=== PATIENT | male | born 1995 | race African-American/Black ===

== ENCOUNTER 2019-05-11 11:16 | Emergency (ER) | payer OTHER, SELFPAY ==
[2019-05-11 11:24] VITALS: BP 189/91; PULSE 83; RESP 16; TEMP 36.9; O2SAT 100
--- NOTE | 2019-05-11 11:41 | ED.SKABFB ---
HPI - Skin/Abscess/Foreign Bdy General Chief complaint: Skin/Abscess/Foreign Body Stated complaint: Lump on neck Time Seen by Provider: 05/11/19 11:34 Source: patient Mode of arrival: ambulatory Limitations: no limitations History of Present Illness HPI narrative: Patient is otherwise healthy 24-year-old male here for evaluation of a lump on the back of the left side of his neck. Patient states it has been going on for the past couple days. He has never had anything like this in the past. He states that he feels like it is smaller today than what it was yesterday. He does not remember it draining any fluid. Has not tried anything for the symptoms prior to arrival Related Data Previous Rx's Medication Instructions Recorded cephalexin [Keflex] 500 mg PO QID 7 Days #28 cap 05/11/19 Allergies Allergy/AdvReac Type Severity Reaction Status Date / Time No Known Drug Allergies Allergy Verified 05/11/19 11:26 Review of Systems Constitutional Denies fever(s) and Denies headache(s) ENT Ears, Nose, Mouth, and Throat: Denies headache(s) Cardiovascular Denies chest pain and Denies dyspnea Respiratory Denies dyspnea Gastrointestinal Gastrointestinal: Denies abdominal pain Integumentary/Breasts Comments: Lump and pain back of his neck on the left side Neurologic Denies behavioral changes and Denies headache(s) Psychiatric Denies behavioral changes Hematologic/Lymphatic Reports easy bleeding and Reports easy bruising [facility] Medical History Patient denies medical problems (Acute) Social History Smoking Status: Former smoker Social History Smoking Status: Former smoker Exam Initial Vital Signs Initial Vital Signs: Vital Signs Temperature 98.4 F 05/11/19 11:24 Pulse Rate 83 05/11/19 11:24 Respiratory Rate 16 05/11/19 11:24 Blood Pressure 189/91 H 05/11/19 11:24 Pulse Oximetry 100 05/11/19 11:24 Const General: cooperative, comfortable, well developed and well groomed Orientation: alert, awake and oriented x3 Neck Other: Patient with a 8 cm area of induration on the posterior aspect of the left side of his neck. Has a 1 cm ?head ?on this area. No draining Resp Effort & Inspection: normal respiratory effort Skin Other: Induration on the posterior left side of the neck please see neck section for description Neuro General: alert, awake and oriented x3 Extrem General: normal to inspection and capillary refill normal Course Vital Signs - 8 hr 05/11/19 11:24 Temperature 98.4 F Pulse Rate 83 Respiratory Rate 16 Blood Pressure 189/91 H Pulse Oximetry 100 MDM - Skin/Abscess/Foreign Bdy MDM Narrative Medical decision making narrative: Bedside ultrasound did not show an underlying abscess. I do feel that some of the induration is reactive lymph nodes. No indication for incision and drainage here in the ER. Will send home on antibiotics. Patient was given return precautions and follow-up instructions. He expressed understanding and agreement plan. Discharge Plan Departure Patient Disposition: Home Clinical Impression: Cellulitis Qualifiers: Site of cellulitis: neck Qualified Code(s): L03.221 - Cellulitis of neck Discharge Date/Time: 05/11/19 11:52 Interventions: ED Discharge Assessment Last Done: 05/11/19 11:51 Instructions: DI for Cellulitis -- Adult Activity Restrictions/Additional Instructions: Take the antibiotics as directed. On Monday morning contact your medical department for follow-up. Return to the emergency department for any new or worsening symptoms Prescriptions: New cephalexin [Keflex] 500 mg capsule 500 mg PO QID 7 Days Qty: 28 RF: 0
== END 2019-05-11 11:52 | disposition home or self-care (01) ==
PROVIDERS: Emergency Provider Emergency Medicine
DX: L03.221 Cellulitis of neck (principal)
CPT/HCPCS: 99282

== ENCOUNTER 2020-11-13 00:15 | Emergency (ER) | payer SELFPAY ==
[2020-11-13 00:15] VITALS: BP 194/116; PULSE 89; RESP 17; TEMP 36.7; O2SAT 100; BMI 38.4
[2020-11-13 00:26] VITALS: PULSE 83; O2SAT 100
[2020-11-13 00:30] VITALS: PULSE 77; O2SAT 100
[2020-11-13 00:31] VITALS: BP 172/103; PULSE 78; O2SAT 100
--- NOTE | 2020-11-13 00:33 | DI.RAD.S_ITS ---
PROCEDURE: XR CHEST 1V INDICATIONS: Chest pressure TECHNIQUE: One view of the chest was acquired. COMPARISON: None. FINDINGS: Surgical changes and devices: None. Lungs and pleura: Lungs are clear. No pleural effusions or pneumothorax. Mediastinum: Mediastinal contours appear normal. Heart is enlarged. Bones and chest wall: No suspicious bony lesions. Overlying soft tissues appear unremarkable. IMPRESSION: No acute cardiopulmonary disease process. Dictated by: Cristy Rodriguez MD, PhD on 11/13/2020 at 9:21 Approved by: Cristy Rodriguez MD, PhD on 11/13/2020 at 9:45
--- NOTE | 2020-11-13 00:34 | ED_ITS ---
HPI - General Adult General Chief complaint: Hypertension Stated complaint: states high bp, headache doesnt feel well Time Seen by Provider: 11/13/20 00:16 Source: patient Mode of arrival: Ambulatory Limitations: no limitations History of Present Illness HPI narrative: Patient is a 25-year-old male. 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 He takes this for a short period of time but then stopped taking it on his own and has not taken it for several years. Does recently he started noticing that his blood pressure was elevated so he started taking the prescription that he received 2 years ago again. He comes the emergency department today because he has headache and generally does not feel very well and he took his blood pressure at home and it was elevated. He states he does recently bought a bone pressure cuff and off of his medication his blood pressure normally runs between 160 and 180 systolic. He also describes chest pressure. Related Data Previous Rx's Medication Instructions Recorded lisinopril-hydrochlorothiazide 1 tab PO DAILY #30 tab 11/13/20 Allergies Allergy/AdvReac Type Severity Reaction Status Date / Time No Known Drug Allergies Allergy Verified 05/11/19 11:26 Review of Systems Constitutional Constitutional: Denies fever(s) and Reports headache(s) ENT Ears, Nose, Mouth, and Throat: Reports headache(s) Cardiovascular Cardiovascular: Reports chest pain, Denies rapid heart rate and Denies dyspnea Respiratory Respiratory: Denies cough and Denies dyspnea Gastrointestinal Gastrointestinal: Denies abdominal pain, Denies nausea and Denies vomiting Musculoskeletal Musculoskeletal: Denies arthralgias and Denies myalgias Integumentary/Breasts Skin/Breast: Denies rash Neurologic Neurologic: Denies behavioral changes and Reports headache(s) Psychiatric Psychiatric: Denies behavioral changes Hematologic/Lymphatic On Anticoagulants: No Allergic/Immunologic Allergic/Immunologic: Denies urticaria Patient History Medical History Hypertension Social History Smoking Status: Former smoker Smoking Status: Former smoker alcohol intake frequency: 0-2 drinks per day Substance Use Type: does not use Exam Initial Vital Signs Initial Vital Signs: Vital Signs Temperature 98.0 F 11/13/20 00:15 Pulse Rate 89 11/13/20 00:15 Respiratory Rate 17 11/13/20 00:15 Blood Pressure 194/116 H 11/13/20 00:15 Pulse Oximetry 100 11/13/20 00:15 Const General: cooperative, healthy appearing, comfortable and well developed Limitations: mental status not altered HENMT Head: normal to inspection and normocephalic Resp Effort & Inspection: normal respiratory effort Auscultation: clear to auscultation bilaterally Cardio Rate: regular rate Rhythm: regular rhythm GI Inspection: non-distended Palpation: soft Skin Lesions: no lesions Rashes: no rashes Neuro General: patient alert, patient awake and patient oriented x3 Cognition: normal cognition Speech: speech normal Gait: normal gait Motor: muscle tone normal throughout Sensory Exam: no sensory deficits noted Extrem General: normal to inspection and capillary refill normal Psych Appearance: grossly normal and well kempt Scores GCS [place] coma scale eye opening: Spontaneous [place] coma scale verbal response: Orientated [place] coma scale motor response: [place] commands [place] coma scale total score: 15 HEART Score Heart Score history: Slightly Suspicious Heart Score EKG: Non-Specific repolarization disturbance Heart Score Age: < 45 years old Heart Score risk factors: 1-2 risk factors Heart Score troponin: < or = to normal limit Heart Score Total: 2 Course Orders Ordered: ED Orders 11/13/20 EKG-12 Lead Stat 11/13/20 00:30 Complete Blood Count AUTO DIFF Stat Comprehensive Metabolic Panel Stat Lipase Stat Troponin & CK Cardiac Panel Stat 11/13/20 00:33 XR chest 1V Stat Discontinued Medications Acetaminophen (Acetaminophen 325 Mg Tablet) 650 mg PO NOW ONE Stop: 11/13/20 00:41 Last Admin: 11/13/20 00:52 Dose: 650 mg Documented by: SHAYLA Vital Signs Vital signs: Vital Signs - 8 hr 11/13/20 00:15 11/13/20 00:26 11/13/20 00:30 Temperature 98.0 F Pulse Rate 89 83 77 Respiratory Rate 17 Blood Pressure 194/116 H Pulse Oximetry 100 100 100 11/13/20 00:31 11/13/20 01:00 11/13/20 01:30 Temperature Pulse Rate 78 77 74 Respiratory Rate 26 H 25 H Blood Pressure 172/103 H 169/105 H 165/99 H Pulse Oximetry 100 100 98 Medical Decision Making Lab Data Lab results reviewed: Yes I reviewed the patient's lab results. Result diagrams: 11/13/20 00:30 11/13/20 00:30 Labs: Lab Results 11/13/20 11/13/20 Range/Units 00:30 00:30 WBC 8.8 (4.5-11.0) X10^3/uL RBC 4.85 (4.5-5.9) X10^6/uL Hgb 14.5 (13.5-17.5) g/dL Hct 43.5 (41-53) % MCV 89.6 (80-100) fL MCH 29.9 (26-34) PG MCHC 33.4 (30-36) % RDW 13.7 (11.6-14.8) % Plt Count 197 (150-400) X10^3/uL Neut % (Auto) 69.0 (50-75) % Lymph % (Auto) 21.5 L (25-40) % [place] % (Auto) 8.1 (3-14) % Eos % (Auto) 0.5 L (2-4) % Baso % (Auto) 0.9 (0-2) % Neut # (Auto) 6000 (0524-0496) /uL Lymph # (Auto) 1900 (7232-8529) /uL [place] # (Auto) 700 (0-900) /uL Eos # (Auto) 0 (0-450) /uL Baso # (Auto) 100 (0-100) /uL Sodium 137 (137-145) mmol/L Potassium 3.8 (3.4-5.1) mmol/L Chloride 100 (98-107) mmol/L Carbon Dioxide 33 H (22-32) mmol/L BUN 16 (9-20) mg/dL Creatinine 0.95 (0.66-1.25) mg/dL Estimated GFR > 60.0 (>60) mL/min BUN/Creatinine Ratio 16.8 (6-22) Glucose 109 H (70-100) mg/dL Calcium 9.6 (8.4-10.2) mg/dL Total Bilirubin 0.5 (0.2-1.3) mg/dL AST 58 (17-59) IU/L ALT 89 H (<50) IU/L Alkaline Phosphatase 64 (38-126) U/L Total Creatine Kinase 383 H (55-170) U/L CK-MB (CK-2) 0.97 (<2.37) ng/mL CK-MB (CK-2) Rel Index 0.3 L (1.5-5.0) % Troponin I 0.016 (0.01-0.034) ng/mL Total Protein 8.1 (6.3-8.2) g/dL Albumin 4.5 (3.5-5.0) g/dL Globulin 3.6 (1.7-4.1) g/dL Albumin/Globulin Ratio 1.3 (1.0-2.8) Lipase 109 (23-300) U/L Imaging Data Chest x-ray: Radiologist's Impression: Low lung volumes Borderline cardiomegaly No evidence of heart ECG Data Attestation: I personally reviewed and interpreted this ECG as follows: Prior ECG tracings: not available for review Interpretation: Sinus rhythm Ventricular rate is 78 Early repolarization Normal axis MDM Narrative Medical decision making narrative: Patient has a history of hypertension and up until recently has not been taking any of his medications. He states that at baseline his systolic blood pressures feet 160-180 systolic this is off of medications. He does not know what his blood pressure is 1 taking medicines. He states that his headache completely resolved after Tylenol. His blood pressure improved with rest here in the ER without intervention. His troponin is negative. Low suspicion for ACS. Has a low risk heart score. I discussed all this with the patient. I will refill the medication that he was prescribed 2 years ago so that he has new medicine. It was sent to the pharmacy of his choice. Informed him that he need to take it daily and he needed to take his blood pressure at home and record the values and contact his primary doctor so they can discuss these values to see if he needs any changes. He was given return precautions and follow-up instructions. He expressed understanding and agreement. Discharge Plan Departure Patient Disposition: Home Clinical Impression: Hypertension Instructions: DI for High Blood Pressure Activity Restrictions/Additional Instructions: A prescription for blood pressure medicines was electronically transmitted to [facility]. To start taking this on a daily basis as directed. Is also important that you take your blood pressure at home like we discussed and record the values. When the office is open today contact your primary provider for a follow-up. Return to the emergency department for any new or worsening symptoms Prescriptions: New lisinopril-hydrochlorothiazide 20-12.5 mg tablet 1 tab PO DAILY Qty: 30 RF: 0
[2020-11-13 00:46] LABS: Add Manual Diff / Slide Review NO; Basophils Absolute Auto 100 /uL (0-100); Basophils Percent Auto 0.9 % (0-2); Eosinophils Absolute Auto 0 /uL (0-450); Eosinophils Percent Auto 0.5 % (2-4); Hematocrit 43.5 % (41-53); Hemoglobin 14.5 g/dL (13.5-17.5); Lymphocytes Absolute Auto 1900 /uL (1100-4500); Lymphocytes Percent Auto 21.5 % (25-40); Mean Corpuscular HGB Conc 33.4 % (30-36); Mean Corpuscular Hemoglobin 29.9 PG (26-34); Mean Corpuscular Volume 89.6 fL (80-100); Monocytes Absolute Auto 700 /uL (0-900); Monocytes Percent Auto 8.1 % (3-14); Neutrophils Absolute Auto 6000 /uL (1500-7000); Platelet Count 197 X10^3/uL (150-400); Red Blood Cell Count 4.85 X10^6/uL (4.5-5.9); Red Cell Distribution Width 13.7 % (11.6-14.8); White Blood Cell Count 8.8 X10^3/uL (4.5-11.0)
[2020-11-13] MEDS: ACETAMINOPHEN 325 MG TABLET 650 MG PO (00:52)
[2020-11-13 00:53] LABS: Alanine Aminotransferase 89 IU/L (<50); Albumin 4.5 g/dL (3.5-5.0); Albumin Globulin Ratio 1.3 (1.0-2.8); Alkaline Phosphatase 64 U/L (38-126); Aspartate Aminotransferase 58 IU/L (17-59); BUN Creatinine Ratio 16.8 (6-22); Bilirubin Total 0.5 mg/dL (0.2-1.3); Blood Urea Nitrogen 16 mg/dL (9-20); Calcium 9.6 mg/dL (8.4-10.2); Carbon Dioxide 33 mmol/L (22-32); Chloride 100 mmol/L (98-107); Creatine Kinase 383 U/L (55-170); Estimated Glomerular Filt Rate > 60.0 mL/min (>60); Globulin 3.6 g/dL (1.7-4.1); Glucose 109 mg/dL (70-100); HEMOLYSIS < 15 (0-50); Lipase 109 U/L (23-300); Potassium 3.8 mmol/L (3.4-5.1); Sodium 137 mmol/L (137-145); Total Protein 8.1 g/dL (6.3-8.2)
[2020-11-13 01:00] VITALS: BP 169/105; PULSE 77; RESP 26; O2SAT 100
[2020-11-13 01:05] LABS: Troponin I 0.016 ng/mL (0.01-0.034)
[2020-11-13 01:08] LABS: CKMB % Relative Index 0.3 % (1.5-5.0); Creatine Kinase MB 0.97 ng/mL (<2.37)
[2020-11-13 01:30] VITALS: BP 165/99; PULSE 74; RESP 25; O2SAT 98
== END 2020-11-13 01:47 | disposition home or self-care (01) ==
PROVIDERS: Emergency Provider Emergency Medicine
DX: I10 Essential (primary) hypertension (principal); R51.9 Headache, unspecified; R07.9 Chest pain, unspecified
CPT/HCPCS: 36415; 71045; 80053; 82550; 82553; 83690; 84484; 85025; 93005; 93010; 99283; 99284

== ENCOUNTER → 2021-12-20 12:23 | Outpatient (CLI) | payer BC, SELFPAY ==
[2021-12-20 13:24] LABS: Hematocrit 43.4 % (41-53); Hemoglobin 14.5 g/dL (13.5-17.5); Mean Corpuscular HGB Conc 33.5 % (30-36); Mean Corpuscular Hemoglobin 29.9 PG (26-34); Mean Corpuscular Volume 89.4 fL (80-100); Platelet Count 197 X10^3/uL (150-400); Red Blood Cell Count 4.85 X10^6/uL (4.5-5.9); Red Cell Distribution Width 13.5 % (11.6-14.8); White Blood Cell Count 6.3 X10^3/uL (4.5-11.0)
[2021-12-20 13:35] LABS: Alanine Aminotransferase 68 IU/L (<50); Albumin Globulin Ratio 1.4 (1.0-2.8); Alkaline Phosphatase 53 U/L (38-126); Aspartate Aminotransferase 60 IU/L (17-59); Bilirubin Total 0.6 mg/dL (0.2-1.3); Blood Urea Nitrogen 13 mg/dL (9-20); Calcium 9.7 mg/dL (8.4-10.2); Carbon Dioxide 28 mmol/L (22-32); Chloride 104 mmol/L (98-107); Cholesterol 227 mg/dL (140-199); Estimated Glomerular Filt Rate > 60.0 mL/min (>60); Globulin 3.5 g/dL (1.7-4.1); Glucose 101 mg/dL (70-100); HDL Cholesterol 46 mg/dL (40-60); HEMOLYSIS 17 (0-50); LDL Cholesterol Calculated 155 mg/dL (<100); Potassium 4.1 mmol/L (3.4-5.1); Sodium 141 mmol/L (137-145); Total Protein 8.5 g/dL (6.3-8.2); Triglycerides 131 mg/dL (35-150)
[2021-12-20 14:15] LABS: TSH w/ Reflex to FT4 1.47 uIU/mL (0.47-4.68)
[2021-12-20 14:51] LABS: Urine N gonorrhoeae NOT DETECTED
[2021-12-20 16:00] LABS: Urine Chlamydia NOT DETECTED
[2021-12-20 18:11] LABS: HIV 1 & 2 Ab/Ag 4th Gen Combo NEGATIVE (NEGATIVE); Hep C Virus Ab w/Reflex Quant NEGATIVE s/c (NEGATIVE)
== END ==
PROVIDERS: PCP Internal Medicine; Referring Provider Internal Medicine; Visit Provider Internal Medicine
DX: I10 Essential (primary) hypertension (principal); Z20.9 Contact with and (suspected) exposure to unspecified communicable disease
CPT/HCPCS: 36415; 80053; 80061; 84443; 85027; 86803; 87389; 87491; 87591

== ENCOUNTER → 2023-01-04 12:17 | Outpatient (CLI) | payer BC, SELFPAY ==
[2023-01-04 13:38] LABS: Hematocrit 43.4 % (41-53); Hemoglobin 14.6 g/dL (13.5-17.5); Mean Corpuscular HGB Conc 33.7 % (30-36); Mean Corpuscular Hemoglobin 29.8 PG (26-34); Mean Corpuscular Volume 88.5 fL (80-100); Platelet Count 172 X10^3/uL (150-400); Red Cell Distribution Width 13.6 % (11.6-14.8)
[2023-01-04 14:17] LABS: Alanine Aminotransferase 57 IU/L (<50); Albumin 4.2 g/dL (3.5-5.0); Albumin Globulin Ratio 1.3 (1.0-2.8); Alkaline Phosphatase 62 U/L (38-126); Aspartate Aminotransferase 39 IU/L (17-59); BUN Creatinine Ratio 15.6 (6-22); Bilirubin Total 0.6 mg/dL (0.2-1.3); Blood Urea Nitrogen 15 mg/dL (9-20); Calcium 9.3 mg/dL (8.4-10.2); Carbon Dioxide 30 mmol/L (22-32); Chloride 102 mmol/L (98-107); Cholesterol 218 mg/dL (140-199); Estimated Glomerular Filt Rate > 60 mL/min (>60); Globulin 3.2 g/dL (1.7-4.1); Glucose 97 mg/dL (70-100); HDL Cholesterol 54 mg/dL (40-60); HEMOLYSIS < 15 (0-50); LDL Cholesterol Calculated 143 mg/dL (<100); Potassium 4.4 mmol/L (3.4-5.1); Sodium 139 mmol/L (137-145); Total Protein 7.4 g/dL (6.3-8.2); Triglycerides 106 mg/dL (35-150)
[2023-01-04 14:31] LABS: Thyroid Stimulating Hormone 0.892 uIU/mL (0.47-4.68)
[2023-01-04 15:08] LABS: Urine N gonorrhoeae NOT DETECTED
[2023-01-04 15:14] LABS: Urine Chlamydia NOT DETECTED
[2023-01-05 05:05] LABS: HBsAg Screen Negative (Negative); Hepatitis A Antibody IgM Negative (Negative); Hepatitis B Core Antibody IgM Negative (Negative); Hepatitis C Antibody Non Reactive (Non Reactive)
[2023-01-05 18:52] LABS: HIV 1 & 2 Ab/Ag 4th Gen Combo NEGATIVE (NEGATIVE)
== END ==
PROVIDERS: PCP Internal Medicine; Referring Provider Internal Medicine; Visit Provider Internal Medicine
DX: I10 Essential (primary) hypertension (principal); Z20.9 Contact with and (suspected) exposure to unspecified communicable disease
CPT/HCPCS: 36415; 80053; 80061; 80074; 84443; 85027; 87389; 87491; 87591

== ENCOUNTER → 2024-01-09 14:53 | Outpatient (CLI) | payer BC, SELFPAY ==
[2024-01-09 16:21] LABS: HEMOLYSIS < 15 (0-50)
[2024-01-09 16:22] LABS: BUN Creatinine Ratio 14.6 (6-22); Blood Urea Nitrogen 14 mg/dL (9-20); Calcium 9.4 mg/dL (8.4-10.2); Carbon Dioxide 33 mmol/L (22-32); Chloride 101 mmol/L (98-107); Estimated Glomerular Filt Rate > 60 mL/min (>60); Glucose 91 mg/dL (70-100); Sodium 139 mmol/L (137-145)
== END ==
LOC: LAB 14:54
PROVIDERS: PCP Internal Medicine; Referring Provider Internal Medicine; Visit Provider Internal Medicine
DX: I10 Essential (primary) hypertension (principal)
CPT/HCPCS: 36415; 80048

== ENCOUNTER 2025-04-08 00:12 | Inpatient (IN) | payer BC, SELFPAY ==
[2025-04-08] VITALS (113 sets, daily range): BP systolic 155–214; BP diastolic 72–127; PULSE 74–128; RESP 8–39; TEMP 36.6–36.8; O2SAT 92–100; BMI 40.7
--- NOTE | 2025-04-08 00:20 | ED_ITS ---
HPI - Neuro Symptoms/Deficit General Chief Complaint: Neuro Symptoms/Deficit Stated Complaint: thinks he is having stroke symptoms Time Seen by Provider: 04/08/25 00:12 History of Present Illness HPI Narrative: 29y M hx of htn on amlodipine and lisinopril for which he has been noncompliant noticed 2 Sundays ago he started have left lower leg numbness tingling and weakness having to bear weight at times on the right leg. This past Monday he was playing football and afterwards he felt numb and weak in the left leg again. Today he noticed speech is in the same and it is feels slurred and he still having left leg numbness and weakness. Patient reports that he has not been compliant in taking his blood pressure medicines as previously prescribed. Patient denies fever chills headache dizziness blurred vision difficulty swallowing or hearing loss. Other than what is stated 14 point review of system is negative. Related Data Previous Rx's ?Medication ?Instructions ?Recorded amlodipine 10 mg tablet 10 mg PO DAILY #90 tabs 12/24 03/18 lisinopril 20 1 tab PO DAILY #90 tabs 12/24 03/18 mg-hydrochlorothiazide 12.5 mg tablet spironolactone 25 mg tablet 25 mg PO DAILY #90 tabs Allergies Allergy/AdvReac Type Severity Reaction Status Date / Time No Known Drug Allergies Allergy Verified 01/09/24 14:03 Review of Systems Review of Systems ROS Unobtainable: All systems reviewed & are unremarkable except as noted in HPI and below Patient History Medical History Tinnitus Plantar fasciitis, bilateral Hearing loss Foot pain Hypertension alcohol intake frequency: 0-2 drinks per day Exam Narrative Exam Narrative: GENERAL: [29] year old patient appears stated age. Well-developed patient, in mild distress. HEAD: Atraumatic. Normocephalic. EYES: Pupils equal round and reactive. Extraocular motions intact. No scleral icterus. No injection or drainage. ENT: Nose without bleeding, purulent drainage. Throat without erythema, tonsillar hypertrophy or exudate. Airway patent. NECK: Trachea midline. Non tender CARDIOVASCULAR: Regular rate and rhythm without murmurs, gallops, or rubs. RESPIRATORY: Clear to auscultation. Breath sounds equal bilaterally. No wheezes, rales, or rhonchi. GASTROINTESTINAL: Abdomen soft, non-tender, nondistended. EXTREMITIES: No edema or joint tenderness. BACK: Nontender without deformity or crepitance. No flank tenderness. NEURO: AOx3. GCS 15 nonfocal neuro exam. 5/5 upper bilateral. 5/5 right lower extremity 3/5 lower left extremity negative pronator drift, opposite heel yoiimb-vr-aoje test intact SKIN: No rash or erythema of visible areas Scores NIH Stroke Scale Level of Conciousness: Alert, keenly responsive Ask month/age: Answers both questions correctly. Open/close eyes, close hand: Performs both tasks correctly Best gaze horizontal: Normal Visual fine: No visual loss Facial palsy: Normal symetrical movement Left arm drift: No drift for full 10 sec Right arm drift: No drift for full 10 sec Left leg drift: Some effort against gravity, cannot maintain, drifts down to bed Right leg drift: No drift for full 5 sec Limb ataxia: Absent Sensory on face/arms/legs: Normal, no sensory loss Best language: No aphasia, normal Dysarthria: Mild to mod,some slurring Extinction or inattention: No abnormality Total NIH Stroke scale score: 3 MDM - Neuro Symptoms/Deficit Imaging Data CT scan - head: Radiologist's Impression: [place] [address] CT Scan Report Signed Patient: Grey Carlos MR#: [id number] : 1995 Acct:[id number] Age/Sex: 29 / M Date of Service: 04/08/25 Loc: ED Accession Number: [id number] Procedure: CT head/brain wo con Ordering Provider: Luke Canada D.O. PROCEDURE: CT HEAD/BRAIN WO CON INDICATIONS: slurring speach/ weakness left leg>18hrs TECHNIQUE: Noncontrast 4.5 mm thick angled axial sections acquired from the foramen magnum to the vertex, with coronal and sagittal reformats. For radiation dose reduction, the following was used: automated exposure control, adjustment of mA and/or kV according to patient size. COMPARISON: [facility], CT, CT ANGIO HEAD AND NECK, 04/08/2025, 1:13. FINDINGS: Image quality: Diagnostic. CSF spaces: Basal cisterns are patent. No extra-axial fluid collections. Ventricles are normal in size and shape. Brain: No midline shift. No intracranial mass effect or hemorrhage. [place]- white matter interface is normal. Low-attenuation focus is present the right nolan radiata. Skull and face: Calvarium and visualized facial bones are intact, without suspicious lesions. Sinuses: Visualized sinuses and mastoids are clear. IMPRESSION: Low-attenuation focus within the right nolan radiata suspicious for subacute ischemia. No superimposed hemorrhage. [address] [address] [address] Scan Report Signed Patient: Grey Carlos MR#: [id number] : 1995 Acct:[id number] Age/Sex: 29 / M Date of Service: 04/08/25 Loc: ED Accession Number: [id number] Procedure: CT angio head and neck Ordering Provider: Luke Canada D.O. PROCEDURE: CT ANGIO HEAD AND NECK INDICATIONS: slurring speach/ weakness left leg>18hrs TECHNIQUE: After the administration of intravenous contrast, 1 mm thick sections acquired from the aortic arch through the [place] of [place]. 3-dimensional cwcdudc-cfbiyhgvy-rtgymhmsok (MIP) and/or volume rendering reformats were acquired of the central intracranial vasculature and neck separately. For radiation dose reduction, the following was used: automated exposure control, adjustment of mA and/or kV according to patient size. COMPARISON: [facility], CT, CT HEAD/BRAIN WO CON, 04/08/2025, 1:13. FINDINGS: Image quality: Diagnostic. Cerebral CT Angiogram: Internal carotid arteries: No acute findings. Intracranial ICA are patent with no significant stenosis. No occlusion. No aneurysm. Anterior cerebral arteries: Unremarkable. No significant stenosis. No occlusion. No aneurysm. Middle cerebral arteries: Unremarkable. No significant stenosis. No occlusion. No aneurysm. Posterior cerebral arteries: Unremarkable. No significant stenosis. No occlusion. No aneurysm. Basilar artery: Unremarkable. No significant stenosis. No occlusion. No aneurysm. Vertebral arteries: Unremarkable as visualized. Vertebral. Dural venous sinuses: Unremarkable given phase of enhancement. Other: Arterial phase appearance of the brain parenchyma is unremarkable. Neck CT Angiogram: Internal carotid arteries: Unremarkable. No significant stenosis. No dissection or occlusion. Common carotid arteries: Unremarkable. No significant stenosis. No dissection or occlusion. External carotid arteries: Unremarkable. No occlusion. Vertebral arteries: Unremarkable. No significant stenosis. No dissection or occlusion. Aortic Arch and Mediastinum: Partially visualized aortic arch unremarkable without evidence of aneurysm. Origins of the great vessels unremarkable. Other: Arterial phase soft tissues of the neck and chest are unremarkable. IMPRESSION: No significant intracranial arterial abnormality is seen. No significant abnormality is seen within the arteries of the neck. Any quantitative measurements of stenosis were performed using NASCET criteria. ECG Data Interpretation: NSR HR 82 HI 146 QRS [address]-t wave change No previous EKG to compare MDM Narrative Medical decision making narrative: Vital signs, nurse triage note, medication list, previous ER visits, and all imaging studies reviewed. CT head showed low attenuation focus within right nolan radiata suspicious for subacute ischemia. NO Superimposed hemorrhage. Troponin 0.088. CK 779. Patient given hydralazine 10mg IV, aspirin 81mg PO x1. Case discussed with Dr. [facility] neurologist on-call who looked over the films and to start nicardipine drip to keep the systolic blood pressure in the 180s starting nicardine drip and to obtain a brain a brain MRI and echo and to check for diabetes and cholesterol in the morning and to trend the troponins. Case discussed with Dr. Drew who has graciously accepted the patient for inpatient admission. Discharge Plan Departure Patient Disposition: Admitted As Inpatient Clinical Impression: Acute CVA (cerebrovascular accident)
--- NOTE | 2025-04-08 00:52 | DI.CT.S_ITS ---
PROCEDURE: CT ANGIO HEAD AND NECK INDICATIONS: slurring speach/ weakness left leg>18hrs TECHNIQUE: After the administration of intravenous contrast, 1 mm thick sections acquired from the aortic arch through the [place] of [place]. 3-dimensional ixalzvg-hrmrxvhof-ttevaltzqy (MIP) and/or volume rendering reformats were acquired of the central intracranial vasculature and neck separately. For radiation dose reduction, the following was used: automated exposure control, adjustment of mA and/or kV according to patient size. COMPARISON: [facility], CT, CT HEAD/BRAIN WO [facility], 04/08/2025, 1:13. FINDINGS: Image quality: Diagnostic. Cerebral CT Angiogram: Internal carotid arteries: No acute findings. Intracranial ICA are patent with no significant stenosis. No occlusion. No aneurysm. Anterior cerebral arteries: Unremarkable. No significant stenosis. No occlusion. No aneurysm. Middle cerebral arteries: Unremarkable. No significant stenosis. No occlusion. No aneurysm. Posterior cerebral arteries: Unremarkable. No significant stenosis. No occlusion. No aneurysm. Basilar artery: Unremarkable. No significant stenosis. No occlusion. No aneurysm. Vertebral arteries: Unremarkable as visualized. Vertebral. Dural venous sinuses: Unremarkable given phase of enhancement. Other: Arterial phase appearance of the brain parenchyma is unremarkable. Neck CT Angiogram: Internal carotid arteries: Unremarkable. No significant stenosis. No dissection or occlusion. Common carotid arteries: Unremarkable. No significant stenosis. No dissection or occlusion. External carotid arteries: Unremarkable. No occlusion. Vertebral arteries: Unremarkable. No significant stenosis. No dissection or occlusion. Aortic Arch and Mediastinum: Partially visualized aortic arch unremarkable without evidence of aneurysm. Origins of the great vessels unremarkable. Other: Arterial phase soft tissues of the neck and chest are unremarkable. IMPRESSION: No significant intracranial arterial abnormality is seen. No significant abnormality is seen within the arteries of the neck. Any quantitative measurements of stenosis were performed using NASCET criteria. Dictated by: Jaci Yusuf M.D. on 04/08/2025 at 1:45 Approved by: Jaci Yusuf M.D. on 04/08/2025 at 1:46
--- NOTE | 2025-04-08 00:52 | DI.RAD.S_ITS ---
PROCEDURE: XR CHEST 1V INDICATIONS: Possible stroke TECHNIQUE: One view of the chest was acquired. COMPARISON: [facility], CR, XR CHEST 1V, 11/13/2020, 0:38. FINDINGS: Surgical changes and devices: None. Lungs and pleura: Lungs are clear. No pleural effusions or pneumothorax. Mediastinum: Mediastinal contours appear normal. Heart size is enlarged. Bones and chest wall: No suspicious bony lesions. Overlying soft tissues appear unremarkable. IMPRESSION: No acute pulmonary process. Dictated by: Jaci Yusuf M.D. on 04/08/2025 at 1:46 Approved by: Jaci Yusuf M.D. on 04/08/2025 at 1:47
--- NOTE | 2025-04-08 00:52 | EKG_ITS ---
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
--- NOTE | 2025-04-08 00:52 | DI.CT.S_ITS ---
PROCEDURE: CT HEAD/BRAIN WO CON INDICATIONS: slurring speach/ weakness left leg>18hrs TECHNIQUE: Noncontrast 4.5 mm thick angled axial sections acquired from the foramen magnum to the vertex, with coronal and sagittal reformats. For radiation dose reduction, the following was used: automated exposure control, adjustment of mA and/or kV according to patient size. COMPARISON: [facility], CT, CT ANGIO HEAD AND NECK, 04/08/2025, 1:13. FINDINGS: Image quality: Diagnostic. CSF spaces: Basal cisterns are patent. No extra-axial fluid collections. Ventricles are normal in size and shape. Brain: No midline shift. No intracranial mass effect or hemorrhage. Almonte- white matter interface is normal. Low-attenuation focus is present the right nolan radiata. Skull and face: Calvarium and visualized facial bones are intact, without suspicious lesions. Sinuses: Visualized sinuses and mastoids are clear. IMPRESSION: Low-attenuation focus within the right nolan radiata suspicious for subacute ischemia. No superimposed hemorrhage. Dictated by: Jaci Yusuf M.D. on 04/08/2025 at 1:43 Approved by: Jaci Yusuf M.D. on 04/08/2025 at 1:44
[2025-04-08 01:27] LABS: Add Manual Diff / Slide Review NO; Hematocrit 41.4 % (41-53); Hemoglobin 14.3 g/dL (13.5-17.5); Lymphocytes Absolute Auto 2200 /uL (1100-4500); Mean Corpuscular HGB Conc 34.4 % (30-36); Mean Corpuscular Hemoglobin 30.1 PG (26-34); Mean Corpuscular Volume 87.3 fL (80-100); Platelet Count 198 X10^3/uL (150-400)
[2025-04-08 01:47] LABS: INR 1.1 (0.9-1.3); Prothrombin Time 12.6 SECONDS (9.4-12.5)
[2025-04-08 01:49] LABS: Alanine Aminotransferase 54 IU/L (<50); Albumin 4.7 g/dL (3.5-5.0); Albumin Globulin Ratio 1.3 (1.0-2.8); Alkaline Phosphatase 62 U/L (38-126); Blood Urea Nitrogen 13 mg/dL (9-20); Calcium 9.5 mg/dL (8.4-10.2); Carbon Dioxide 26 mmol/L (22-32); Chloride 104 mmol/L (98-107); Creatine Kinase 779 U/L (55-170); Estimated Glomerular Filt Rate > 60 mL/min (>60); Globulin 3.7 g/dL (1.7-4.1); Glucose 107 mg/dL (70-99); HEMOLYSIS < 15 (0-50); PTT Partial Thromboplastin Tim 28 SECONDS (25.1-36.5); Potassium 3.3 mmol/L (3.4-5.1); Sodium 140 mmol/L (137-145); Total Protein 8.4 g/dL (6.3-8.2)
[2025-04-08 02:01] LABS: Troponin I 0.088 ng/mL (0.01-0.034)
[2025-04-08] MEDS: ASPIRIN EC 81 MG TABLET PO ×2 (02:06→10:00)
[2025-04-08] MEDS: hydrALAZINE 20 MG/ML VIAL 10 MG IV (02:06)
[2025-04-08] MEDS: POTASSIUM CHLORIDE 20 MEQ/15 ML UDC 40 MEQ PO (02:08)
[2025-04-08] MEDS: NICARDIPINE 25 MG in SODIUM CHLORIDE 0.9% 240 ML 50 MG IV ×2 (03:15→22:16)
--- NOTE | 2025-04-08 03:26 | DI.ECHO.S_ITS ---
[place] [facility] : : [address] : [address] : : [id number] : : Phone: [phone] Echocardiogram Report + + :Name: MIREYA SCHERER Study Date: 04/08/2025 Height: 69 in : :[facility] ReadingLocation: Weight: 276 lb : : Gender: Male BSA: 2.4 m2 : :: 1995 Age: 29 yrs BP: 178/83 mmHg: :Reason For Study: STROKE : :Ordering Physician: ANGELES, : :PEDRO PABLO Quijano MD Performed By: Ruth Ruth : :Referring: PEDRO PABLO REYNOSO MD : + + Interpretation Summary 1) Severely increased left ventricular thickness (concentric) with normal size, normal wall motion, and normal systolic function (EF 55-60%). 2) Normal right ventricular size and function. 3) No significant valvular abnormalities. 4) Injection of contrast documented no interatrial shunt. 5) Hypertension present during the study (BP 178/83mmHg). 6) No prior Echo available for comparison. Procedure: A two-dimensional transthoracic echocardiogram with color flow and Doppler was performed. The study quality was technically adequate. There is no prior echocardiogram noted for this patient. A saline contrast injection was performed to assess for cardiac shunting. The patient was in sinus rhythm with heart rates between 84-109 bpm during the exam. Left Ventricle: The left ventricle is normal in size. There is severe concentric left ventricular hypertrophy. The ejection fraction is estimated to be 55-60%. Left ventricular systolic function appears normal without focal wall motion abnormalities. Diastolic function could not be accurately assessed due to contradictory data. Right Ventricle: The right ventricle is normal size. The right ventricular systolic function is normal. Atria: The left atrial size is normal. Right atrial size is normal. There is no Doppler evidence for an interatrial shunt. Injection of contrast documented no interatrial shunt. Mitral Valve: The mitral valve leaflets appear to open well. There is no mitral regurgitation noted. Aortic Valve: The aortic valve is trileaflet. The aortic valve opens well. There is no aortic valve stenosis. There is trace aortic regurgitation. Tricuspid Valve: The tricuspid valve leaflets are thin and pliable. There is trace tricuspid regurgitation. Pulmonary artery pressures cannot be estimated because of the lack of a measurable TR jet velocity. Pulmonic Valve: The pulmonic valve is not well seen, but is grossly normal. There is no pulmonic valvular regurgitation. Great Vessels: The aortic root is normal size. The dimensions of the ascending aorta are normal. The IVC is of normal diameter and collapses greater than 50% with a sniff. This suggests a low right atrial pressure of 3 mm Hg. Pericardium/ Pleura There is a trivial pericardial effusion noted. There is no pleural effusion. MMode/2D Measurements & Calculations LVIDd: 5.1 cm Ao root diam: 3.8 cm LVIDs: 3.2 cm asc Aorta Diam: 3.2 cm FS: 37.6 % Ao Arch Diam (Prox Trans): 2.7 cm EPSS: 0.69 cm IVSd: 1.6 cm LVPWd: 1.8 cm LV cisneros. diameter/BSA (cm/m^2): 2.1 LV sys. diameter/BSA (cm/m^2): 1.3 LA A2 area: 22.1 cm2 RA long axis: 5.1 cm LA A4 area: 18.8 cm2 RA area: 18.3 cm2 LA length (vol): 5.5 cm RA vol: 55.8 ml LA vol: 64.2 ml RA : 23.6 ml/m2 LA vol index: 27.1 ml/m2 IVC diam: 1.2 cm RVD1 (basal): 2.7 cm TAPSE: 3.1 cm Doppler Measurements & Calculations Ao V2 max: 149.7 cm/sec LVOT Max Brendon: 128.0 cm/sec Ao V2 mean: 105.7 cm/sec LV V1 max P.6 mmHg Ao max P.0 mmHg LV V1 VTI: 19.2 cm Ao mean P.0 mmHg sev ratio: 0.87 Ao V2 VTI: 21.9 cm MV E max brendon: 79.8 cm/sec PA V2 max: 151.0 cm/sec MV A max brendon: 63.8 cm/sec PA V2 mean: 105.9 cm/sec MV E/A: 1.3 PA mean P.0 mmHg Med Peak E' Brendon: 6.3 cm/sec PA pr(Accel): 36.6 mmHg E/E' med: 12.6 Lat Peak E' Brendon: 4.6 cm/sec E/E' lat: 17.2 E/e' average: 14.9 MV dec time: 0.16 sec MV V2 mean: 67.0 cm/sec MV mean P.0 mmHg MV V2 VTI: 21.0 cm Reading Physician:09:04 AM
[2025-04-08 04:36] LABS: UR Morphine/Opiate cutoff 300 Negative (Negative); Urine MDMA Negative (Negative); Urine Methamphetamines Negative (Negative); Urine Tetrahydrocannabinol Positive (Negative)
[2025-04-08 04:37] LABS: Urine Tricyclic Antidepressant Negative (Negative)
[2025-04-08 06:05] LABS: Add Manual Diff / Slide Review NO; Hematocrit 41.9 % (41-53); Hemoglobin 14.3 g/dL (13.5-17.5); Lymphocytes Absolute Auto 2800 /uL (1100-4500); Mean Corpuscular HGB Conc 34.1 % (30-36); Mean Corpuscular Hemoglobin 29.8 PG (26-34); Mean Corpuscular Volume 87.3 fL (80-100); Platelet Count 194 X10^3/uL (150-400)
[2025-04-08 06:17] LABS: Blood Urea Nitrogen 10 mg/dL (9-20); Calcium 9.1 mg/dL (8.4-10.2); Carbon Dioxide 25 mmol/L (22-32); Chloride 103 mmol/L (98-107); Cholesterol 245 mg/dL (140-199); Estimated Glomerular Filt Rate > 60 mL/min (>60); Glucose 111 mg/dL (70-99); HDL Cholesterol 37 mg/dL (40-60); HEMOLYSIS < 15 (0-50); Potassium 3.1 mmol/L (3.4-5.1); Sodium 137 mmol/L (137-145); Triglycerides 135 mg/dL (35-150)
[2025-04-08 06:26] LABS: NT-proBNP (BNP-Adult 18+) 162 pg/mL (<125)
--- NOTE | 2025-04-08 06:38 | PM.HP.1 ---
History of Present Illness History of Present Illness Date Patient Seen: 04/08/25 Time Patient Seen: 06:38 Chief complaint: thinks he is having stroke symptoms Narrative: The pt is a 29 yo who presents to the ER last night with c/o left leg weakness & numbness that has been present for the past 2 weeks. He noticed it after playing football with some friends and has not improved, over the past week, he believes it has gotten worse. He is no longer able to put weight on the leg. He told the ER staff that he felt he was slurringhis words but I was not able to notice this. He is normally on hypertensive medications but has been very non-comliant with taking them, in fact it has been several weeks since he took them and has not rechecked his BP at home. There is no family hx of CVA or early onset MT. He does smoke tobacco + marijuana but no other recreational drug use. The has been on change in vision, no upper ext weakness, no confusion, PFSH Medical History Tinnitus Plantar fasciitis, bilateral Hearing loss Foot pain Hypertension Social History Smoking Status: Current every day smoker Meds Home Medications and Allergies Home Medications ?Medication ?Instructions ?Recorded ?Confirmed ?Type amlodipine 10 mg tablet 10 mg PO DAILY #90 tabs 01/09/24 01/09/24 Rx lisinopril 20 1 tab PO DAILY #90 tabs 01/09/24 01/09/24 Rx mg-hydrochlorothiazide 12.5 mg tablet spironolactone 25 mg tablet 25 mg PO DAILY #90 tabs 01/09/24 01/09/24 Rx Allergies Allergy/AdvReac Type Severity Reaction Status Date / Time No Known Drug Allergies Allergy Verified 01/09/24 14:03 Exam Vital Signs (past 8 hours): - 04/08/25 00:18 04/08/25 00:44 04/08/25 00:45 Temperature 97.8 F Pulse Rate 82 81 Respiratory Rate 16 35 H Blood Pressure 196/118 H Pulse Oximetry 98 98 99 Oxygen Delivery Method Room Air 04/08/25 00:45 04/08/25 01:00 04/08/25 01:00 Temperature Pulse Rate 74 Respiratory Rate 21 Blood Pressure 210/124 H 201/111 H Pulse Oximetry 97 Oxygen Delivery Method 04/08/25 01:34 04/08/25 01:47 04/08/25 01:47 Temperature Pulse Rate 77 80 Respiratory Rate 12 Blood Pressure 211/127 H Pulse Oximetry 92 99 Oxygen Delivery Method 04/08/25 02:06 04/08/25 02:33 04/08/25 03:50 Temperature Pulse Rate 85 Respiratory Rate 21 Blood Pressure 197/119 H 181/105 H Pulse Oximetry 99 Oxygen Delivery Method 04/08/25 03:56 04/08/25 03:56 04/08/25 04:00 Temperature Pulse Rate 102 H 104 H Respiratory Rate 27 H 29 H Blood Pressure 155/115 H Pulse Oximetry 98 99 Oxygen Delivery Method 04/08/25 04:01 04/08/25 04:01 04/08/25 04:05 Temperature Pulse Rate 103 H Respiratory Rate 27 H Blood Pressure 182/101 H 187/103 H Pulse Oximetry 99 Oxygen Delivery Method 04/08/25 04:05 04/08/25 04:10 04/08/25 04:10 Temperature Pulse Rate 109 H 104 H Respiratory Rate 32 H 20 Blood Pressure 189/96 H Pulse Oximetry 99 Oxygen Delivery Method 04/08/25 04:15 04/08/25 04:15 04/08/25 04:20 Temperature Pulse Rate 100 H Respiratory Rate 18 Blood Pressure 184/94 H 178/86 H Pulse Oximetry 98 Oxygen Delivery Method 04/08/25 04:20 04/08/25 04:25 04/08/25 04:25 Temperature Pulse Rate 95 H 96 H Respiratory Rate 31 H 25 H Blood Pressure 179/88 H Pulse Oximetry 99 Oxygen Delivery Method 04/08/25 04:30 04/08/25 04:30 04/08/25 04:35 Temperature Pulse Rate 92 H Respiratory Rate 30 H Blood Pressure 181/83 H 173/86 H Pulse Oximetry 99 Oxygen Delivery Method 04/08/25 04:35 04/08/25 04:40 04/08/25 04:40 Temperature Pulse Rate 88 90 Respiratory Rate 30 H 27 H Blood Pressure 182/87 H Pulse Oximetry 99 99 Oxygen Delivery Method 04/08/25 04:46 04/08/25 04:46 04/08/25 04:50 Temperature Pulse Rate 112 H Respiratory Rate 34 H Blood Pressure 182/120 H 186/104 H Pulse Oximetry 99 Oxygen Delivery Method 04/08/25 04:50 04/08/25 04:55 04/08/25 04:55 Temperature Pulse Rate 108 H 107 H Respiratory Rate 33 H 29 H Blood Pressure 194/94 H Pulse Oximetry 98 Oxygen Delivery Method 04/08/25 05:00 04/08/25 05:00 04/08/25 05:05 Temperature Pulse Rate 101 H Respiratory Rate 24 Blood Pressure 191/86 H 182/84 H Pulse Oximetry Oxygen Delivery Method 04/08/25 05:05 04/08/25 05:10 04/08/25 05:10 Temperature Pulse Rate 95 H 101 H Respiratory Rate 30 H 28 H Blood Pressure 206/93 H Pulse Oximetry Oxygen Delivery Method 04/08/25 05:15 04/08/25 05:15 04/08/25 05:20 Temperature Pulse Rate 97 H 109 H Respiratory Rate 20 21 Blood Pressure 196/90 H Pulse Oximetry Oxygen Delivery Method 04/08/25 05:20 04/08/25 05:25 04/08/25 05:25 Temperature Pulse Rate 106 H Respiratory Rate 24 Blood Pressure 200/91 H 203/94 H Pulse Oximetry Oxygen Delivery Method 04/08/25 05:30 04/08/25 05:30 04/08/25 05:35 Temperature Pulse Rate 89 Respiratory Rate 30 H Blood Pressure 177/77 H 176/77 H Pulse Oximetry Oxygen Delivery Method 04/08/25 05:35 04/08/25 05:40 04/08/25 05:40 Temperature Pulse Rate 84 84 Respiratory Rate 22 26 H Blood Pressure 171/74 H Pulse Oximetry Oxygen Delivery Method 04/08/25 05:45 04/08/25 05:45 04/08/25 05:50 Temperature Pulse Rate 86 Respiratory Rate 21 Blood Pressure 170/79 H 159/74 H Pulse Oximetry Oxygen Delivery Method 04/08/25 05:50 Temperature Pulse Rate 83 Respiratory Rate 27 H Blood Pressure Pulse Oximetry Oxygen Delivery Method Oxygen Delivery Method Room Air Const General: cooperative, healthy appearing and comfortable HENOH Head: normocephalic and atraumatic Resp Auscultation: clear to auscultation bilaterally Cardio Rate: regular rate Rhythm: regular rhythm GI Auscultation: normal bowel sounds Neuro General: patient alert, patient awake, patient oriented x3 and other Other: weakness in LLE, the leg was wrapped in several blankets Objective Labs 04/08/25 05:55 04/08/25 05:55 Labs: Laboratory Results - last 24 hr 04/08/25 04/08/25 04/08/25 01:15 04:08 05:55 WBC 8.7 9.1 RBC 4.75 4.80 Hgb 14.3 14.3 Hct 41.4 41.9 MCV 87.3 87.3 MCH 30.1 29.8 MCHC 34.4 34.1 RDW 13.7 13.8 Plt Count 198 194 Neut % (Auto) 66.2 59.7 Lymph % (Auto) 25.0 30.5 Marshall % (Auto) 8.1 8.9 Eos % (Auto) 0.2 L 0.3 L Baso % (Auto) 0.5 0.6 Neut # (Auto) 5700 5400 Lymph # (Auto) 2200 2800 Marshall # (Auto) 700 800 Eos # (Auto) 0 0 Baso # (Auto) 0 100 PT 12.6 H INR 1.1 APTT 28 Sodium 140 137 Potassium 3.3 L 3.1 L Chloride 104 103 Carbon Dioxide 26 25 BUN 13 10 Creatinine 0.92 0.83 Estimated GFR > 60 > 60 BUN/Creatinine Ratio 14.1 12.0 Glucose 107 H 111 H Calcium 9.5 9.1 Total Bilirubin 0.6 AST 49 ALT 54 H Alkaline Phosphatase 62 Total Creatine Kinase 779 H Troponin I 0.088 H NT-Pro-B Natriuret Pep 162 H Total Protein 8.4 H Albumin 4.7 Globulin 3.7 Albumin/Globulin Ratio 1.3 Triglycerides 135 Cholesterol 245 H LDL Cholesterol, Calc 181 H HDL Cholesterol 37 L U Opiates 300ng/mL cut Negative Ur Oxycodone Screen Negative Urine Methadone Screen Negative Ur Barbiturates Screen Negative U Tricyclic Antidepress Negative Ur Phencyclidine Scrn Negative Ur Amphetamines Screen Negative U Methamphetamines Scrn Negative Ur MDMA Scrn (Ecstasy) Negative U Benzodiazepines Scrn Negative Urine Cocaine Screen Negative U Marijuana (THC) Screen Positive H Urine pH TNP Urine Specific [place] TNP Ur Creatinine TNP Assessment & Plan Assessment & Plan narrative: I have discussed [facility] pt's presenting symptoms, labs and imaging with the ER provider and agree with the decision for admission. I have personally reviewed the labs of WBC of 6.7,K- 3.1,and reviewed the CT head showing the low attenuation in the right nolan. I, Dr. Yanira Drew in [place] have seen and examined the pt [facility] in [place] using all audio/ video technologies available with the consent of the pt and nursing assistance. 1. Acute CVA- the ER provider did discuss this pt with the tele-neurologistat the [facility] and they do not recommend transferring to a higher level of care. CT head and CTA of head and neck were performed, no obvious vascular causes, will have PT/OT evaluation the pt, MRI of the head pending, Echocardiogram ordered to see if a PFO exist in this young patient. will start the pt on ASA & plavix, BP control will be important, lipid profile pending. 2. HTN urgency- BP have been> 200-220 in theER, we have started the pt on Cardene drip,currently at 7.5 mg/hr, and BP still remains high, Lasix has been ordered, as well as hydralazine, teleneurologist wants to keep the sBP around 180 Time-Based Coding :: [TOTAL MINUTES] spent with patient and on the chart (including review of chart, obtaining history, exam, reviewing outside data, placing orders, documenting exam and treatment plan, and counseling patient) on [DATE].
[2025-04-08] MEDS: NICARDIPINE 25 MG in SODIUM CHLORIDE 0.9% 240 ML 75 MG IV ×2 (06:58→10:44)
[2025-04-08] MEDS: CLOPIDOGREL 75 MG TABLET 300 MG PO (07:38)
--- NOTE | 2025-04-08 09:35 | OT.IP.EVAL ---
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 Activities of Daily I Living and IADL's Social History Household Members none Living Arrangements Apartment/Condo Number of Floors ( Two Floors Floors) Number of Stairs To Flight of steps with B rails to BR Enter/Railing? 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 Activities of Daily I Living and IADL's Social History Household Members family,children,none Living Arrangements Apartment/Condo Number of Floors ( Two Floors Floors) Number of Stairs To 15 steps with bilateral rails Enter/Railing? 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 OT-IP Current Condition Start: 04/08/25 11:29 Freq: Status: Active Protocol: Document 04/08/25 11:30 CCC (Rec: 04/08/25 11:54 CCC Desktop) Occupational Therapy Current Condition Current Condition Evaluation Date 04/08/25 Treatment Diagnosis CVA Diagnosis Onset Date 04/08/25 M3 OT- IP Subjective and Pain Start: 04/08/25 11:29 Freq: Status: Active Protocol: Document 04/08/25 11:30 [facility] (Rec: 04/08/25 11:54 [facility] Desktop) OT- Subjective Occupational Therapy Visit Type Type Initial Evaluation Visit Start Time 08:56 Visit Stop Time 09:35 Occupational Therapy Visit Comments Patient Comments Pt agreed to get up. Only had standard walker in ED to use and other FWW too short. Patient/Caregiver To get better. Goals OT Pain Assessment Pain When Pain Assessed During Mobility Pain Present Pain Present Pain Reported Location neck Pain Behaviors Facial Grimacing M4 OT- IP ADL's Start: 04/08/25 11:29 Freq: Status: Active Protocol: Document 04/08/25 11:30 [facility] (Rec: 04/08/25 11:54 [facility] Desktop) OT PTI-Fezs-Xoacnig Comments OT Self-Feeding Pt states has not eaten and requested meal for pt and Comments also requested pt to have HOME MAKER. Pt complaining that his tongue feel a little swollen. OT ADL-Grooming Comments OT Grooming Comments Pt able to wash his face after set-up of wash cloth. OT ADL-Oral Care Comments Oral Care Comments Not performed. OT ADL-Dressing General Eval Lower Body Dressing Maximum Assistance Ability Comments OT Dressing Comments Due to decreased sitting balance pt unable to aracelis his socks and unable to lift his LLE for the left side. Pt needing CGA to KUSH for his balance. OT ADL-Toileting Comments OT Toileting Pt states earlier was able to transfer from the WC to Comments toilet via grabbing the bar and moving himself over. OT ADL-Bathing Comments OT Bathing Comments NOt performed. M5 OT- IP IADL's Start: 04/08/25 11:29 Freq: Status: Active Protocol: Document 04/08/25 11:30 [facility] (Rec: 04/08/25 11:54 [facility] Desktop) OT-Instrumental Activities of Daily Living Home Safety Awareness Awareness of Need Good Awareness for Assistance at Home Home Safety Comments Pt states did not sleep at all but still feels that he is not at his baseline for thinking at this time as feels a little foggy. Money Management Money Management Pt needing increased time with calculations. Comments Meal Preparation Meal Preparation Pt will need assist. Comments Employment Specialist/Program Manager Employment Specialist/Program Manager Pt will need assist. 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 Pt's score probably affected from lack of sleep and possible from the CVA as well. To continue to assess. Cognitive Comments Cognitive Assessment Pt able to follow commands for ADL and mobility needs. Comments Pt states feels a bit foggy and that he is not thinking as well as he usually does. OT- Vision and Hearing OT- Hearing Assessment OT- Hearing WFL Assessment OT- Vision Assessment Visual Acuity WFL Occular Pursuits WFL Visual Convergence WFL Visual Gates WFL Visual Spacial Left Neglect Vision Assessment Pt having difficulty to have the control to keep his Comments eyes close during assessments. Possible left neglect for LUE and needing cues to keep take of his left UE. M7 OT- IP Mobility and Balance Start: 04/08/25 11:29 Freq: Status: Active Protocol: Document 04/08/25 11:30 [facility] (Rec: 04/08/25 11:54 [facility] Desktop) OT- Bed Mobility Assessment Supine to Sit Supine to Sit Assist Minimal Assistance OT-Transfer Assessment Sit to and From Stand Sit to and from Minimal Assistance,2 Person Assistance Stand Comments Mobility Comments KUSH x2 to stand to the standard walker and unable to take any steps at this time. Pt having to sit back down as feeling sweaty. Pt able to scoot to the head the bed with MODA x1 , assist to help move and support his LLE. MAX AX 1 to get back into bed. OT- Balance Assessment Sitting Balance and Reactions Static Sitting Fair Balance Ability Dynamic Sitting Poor Balance Ability Standing Balance and Reactions Static Standing Poor Balance Ability Dynamic Standing Poor Balance Ability Comments Other Balance Tests/ Pt needing cue to sit to midline and CGA as times. Pt Deviations/Treatment leaning to the left and not aware. Pt HR increased from : 104 to 132 with minimal activity. M8 OT- IP Objective Assessments Start: 04/08/25 11:29 Freq: Status: Active Protocol: Document 04/08/25 11:30 [facility] (Rec: 04/08/25 11:54 [facility] Desktop) OT Gross Range of Motion Upper Extremity Range of Motion Assessment Left Impaired OT Strength Upper Extremity Strength Assessment Left Impaired Shoulder 3-/5 Elbow 4- Forearm 4- Wrist 4- Hand 4- Hand Resource Room Special Education Teacher Strength Hand Dominance Right OT- Coordination Assessment Upper Extremity Finger to Nose Test Left UE Impaired Comments Coordination Increased time with left hand. Pt states having Comments difficulty with FMS with left hand now. OT Sensation Assessment Comments Summary Comments Decreased proprioception in left hand. M9 OT- IP Assessment and Plan Start: 04/08/25 11:29 Freq: Status: Active Protocol: Document 04/08/25 11:30 [facility] (Rec: 04/08/25 11:54 [facility] Desktop) OT Summary Assessment and Plan Potential Rehabilitation Excellent Potential Analytic Complexity Moderate at Evaluation Summary OT Impairments Pain,Range of Motion,Strength,Balance,Coordination, Sensation,Functional Cognition,Functional Mobility,Self -Feeding,Grooming,Dressing,Toileting,Bathing,Toilet Transfers Progress Towards Slow Progress due to Medical Issues Goals Assessment Summary Pt MOD complexity and main barriers are steps, decreased functional use of LLE> LUE, not at his baseline for cognitive needs, decreased awareness of midline and balance at this time. Pt will benefit from acute rehab when medically stable. Pt would benefit from HOME MAKER eval. Goals Self-Feeding Goal Independent Grooming Goal Independent Dressing Goal Independent Toileting Goal Independent Bathing Goal Independent Toilet Transfer Goal Independent Shower Transfer Goal Independent Days to Meet Goals 25 Frequency of Treatment Frequency Of Once a Day Treatment Treatment Plan OT Treatment Plan ADL Training,Functional Cognition Training,Functional Mobility,Neuromuscular Re-education,Therapeutic Exercises,Patient/Family Education,Discharge Planning Other Treatment Transfer with FWW to [facility] with MODA X2. Recommendations and Next Treatment Focus Discharge Recommendations OT Discharge Acute Rehab Recommendations Transportation Needs Private Vehicle,Wheelchair/Cabulance at Discharge
[2025-04-08] MEDS: ENOXAPARIN 40 MG/0.4 ML SYRINGE SUBCUT ×2 (10:00→20:50)
--- NOTE | 2025-04-08 10:37 | PT.IIE ---
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 Activities of Daily I Living and IADL's Social History Household Members none Living Arrangements Apartment/Condo Number of Floors ( Two Floors Floors) Number of Stairs To Flight of steps with B rails to BR Enter/Railing? 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 M2 PT-IP Current Condition Start: 04/08/25 10:17 Freq: NEEDED Status: Active Protocol: Document 04/08/25 08:56 MB (Rec: 04/08/25 10:36 MB Desktop) Physical Therapy Current Condition Current Condition Evaluation Date 04/08/25 Treatment Diagnosis R nolan radiata subacute ischemia, LLE weakness M3 PT-IP Subjective Start: 04/08/25 10:17 Freq: NEEDED Status: Active Protocol: Document 04/08/25 08:56 MB (Rec: 04/08/25 10:36 MB Desktop) Subjective Physical Therapy Visit Type Type Initial Evaluation Visit Start Time 08:56 Visit Stop Time 09:00 Number of FACILITY PRACTICE SPECIALIST Visits 0 Physical Therapy Visit Comments Patient Comments Pt is agreeable to PT Therapy Pain Assessment Pain When Pain Assessed At Rest Pain Present Pain Present Pain Reported Location Back Scale Used Not rated M4 PT-IP Mobility and Gait Start: 04/08/25 10:17 Freq: NEEDED Status: Active Protocol: Document 04/08/25 08:56 MB (Rec: 04/08/25 10:36 MB Desktop) PT-Bed Mobility Assessment Rolling Level of Assist Minimal Assistance Supine to Sit Supine to Sit Minimal Assistance,1 Person Assistance,Bedrails Sit to Supine Sit to Supine Maximum Assistance,1 Person Assistance,Bedrails Scooting Scooting to Edge of Minimal Assistance Bed Scooting Up and Down Moderate Assistance in Bed PT-Transfer Assessment Sit to and From Stand Sit to and from Minimal Assistance,2 Person Assistance,Use of Upper Stand Extremities Equipment Transfer Assistive Gait Belt,Standard Walker Device Orthotic/Prosthetic No Devices or Brace: Transfers Transfer Destination Bed Transfer Technique Left side scoot with mod A for L leg up to HOB Transfer Ability Level of Assist Moderate Assistance,1 Person Assistance,Use of Upper Extremities Comments Mobility Comments Pt cannot move left leg at all when asked and he does have delayed processing. Strong clonus with forced passive DF left foot. Mild extensor tone in left knee and ankle DF tone and this changes with WB through foot sitting EOB and pt cannot fully extend through left knee or touch floor with left heel Gait Assessment Comments Gait Comments Unable to step this morning, even with +2 min A and assistance trying to move left leg, SW in room and used to stand today PT-Balance Assessment Sitting Balance and Reactions Static Sitting Normal Balance Ability Dynamic Sitting Fair Balance Ability Standing Balance and Reactions Static Standing Poor Balance Ability Dynamic Standing Poor Balance Ability Device Used SW and assistance M5 PT-IP Objective Assessments Start: 04/08/25 10:17 Freq: NEEDED Status: Active Protocol: Document 04/08/25 08:56 MB (Rec: 04/08/25 10:36 MB Desktop) Orientation Orientation/Cognition Level of Alertness Alert Orientation Name,Age,Birthday,Place,Situation Language Function No Deficits Noted Ability Safety Awareness Decreased Safety Awareness Memory Description No Deficits Noted Gross Range of Motion Upper Extremity ROM Impairments Defer to OT, pt does seem sluggish with motor awareness of LUE and use with moving hand on and off walker and for bed mobility Lower Extremity ROM Assessment Left Impaired Impairments See comments above, testing is challenging to rate today given tone presentation and no active movement with tone Strength Lower Extremity Strength Assessment Left Impaired Comments Strength Comments LLE ankle and knee without AROM and resistance to attempted PROM left knee flexion today with buckle with standing WB Coordination Assessment Gross Coordination Gross Coordination Impaired Sensation Assessment Sensation Gross Sensation WNL Comments Sensation Comments Pt does have delayed processing with sensory testing Muscle Tone Muscle Tone WNL No Comments Muscle Tone Comments PF tone left ankle and extensor tone left knee today, strong clonus to passive DF left ankle today M6 PT-IP Treatment Start: 04/08/25 10:17 Freq: NEEDED Status: Active Protocol: Document 04/08/25 08:56 MB (Rec: 04/08/25 10:36 MB Desktop) Physical Therapy Treatment Education Education Provided Precautions,Safety Other Treatments Other Treatment Pt's BP is high at 186/86 during mobility and his HR Performed increases to 132 BPM with minimal mobility today; ed pt on recommendations and PT course in acute setting, findings today M7 PT-IP Assessment and Plan Start: 04/08/25 10:17 Freq: NEEDED Status: Active Protocol: Document 04/08/25 08:56 MB (Rec: 04/08/25 10:36 MB Desktop) PT Summary Assessment and Plan Potential Rehabilitation Excellent Potential Status of Condition Evolving at Evaluation Summary Impairments Pain,ROM,Strength,Balance,Coordination,Tone,Cognition, Bed Mobility,Transfers,Gait,Activity Tolerance Assessment Summary Pt is a 29 y/o male adm with LLE weakness and found to have right nolan radiata subacute ischemia. He presents with LLE weakness and tone and strong clonus left ankle to rapid passive DF. 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 He lives alone and has a flight of steps in his condo/townhouse. Pt requires assistance for bed mobility, STS and lateral scooting transfers today and standing. He is unable to take a step today. Recommend acute rehab at d/c. Goals Bed Mobility Goal Independent Transfer Goal Independent,Cane,Front Wheeled Walker Gait Goal Independent,Cane,Front Wheel Walker Gait Distance 75 Other Goals Pt will perform WNLs on standardized balance test to decrease fall risk. Pt will ascend and descend flight of steps with rail and LRAD and mod I to allow safe home entrance. Days to Meet Goals 5 Frequency of Treatment Frequency Of Once a Day Treatment Treatment Plan Physical Therapy Bed Mobility Training,Transfer Training,Gait Training, Treatment Plan Therapeutic Exercise,Balance Retraining,Discharge Planning,Hot or Cold Pack,Neuromuscular Re-ed, Coordination Retraining,Manual Therapy Precautions Other Precautions Fall risk, left LE profoundly weak with changing tone Recommendations To Nursing Amount of Assist Mechanical Lift Needed Discharge Recommendations PT Discharge Acute Rehab Recommendations Transportation Needs Wheelchair/Cabulance at Discharge - PT assist x1-2
[2025-04-08] MEDS: POTASSIUM CHLORIDE 20 MEQ TAB 40 MEQ PO ×2 (12:37→18:12)
[2025-04-08] MEDS: FUROSEMIDE 40 MG/4 ML VIAL IV ×2 (12:37→23:16)
--- NOTE | 2025-04-08 13:39 | DI.CT.S_ITS ---
PROCEDURE: CT ANGIO ABDOMEN PELVIS INDICATIONS: renal artery stenosis TECHNIQUE: After the administration of intravenous contrast, 2.5 mm sections acquired from the diaphragm to the iliac crests. 10 mm maximum intensity projection (MIP) coronal and sagittal reformats were then performed. For radiation dose reduction, the following was used: automated exposure control. COMPARISON: None. FINDINGS: Image quality: Diagnostic. Abdominal aorta: No aortic aneurysm or evidence of acute aortic syndrome. Mesenteric arteries: Patent without hemodynamically significant stenosis. Renal arteries: There is a single right renal artery as well as 2 left renal arteries, with an accessory artery arising below the left main renal artery. No plaque or stenosis seen. Lower chest: Unremarkable. ABDOMEN: Liver: No solid mass. Gallbladder: No radiopaque gallstones or wall thickening. Biliary ducts: No biliary dilation. Pancreas: No ductal dilation. Spleen: Size is within normal limits. Adrenal Glands: No adrenal nodules. Kidneys and Ureters: No hydronephrosis. No solid mass. No complex renal cystic lesion which requires follow up. Stomach and Bowel: Normal colonic caliber, without significant wall thickening. Peritoneum: No abnormal intraperitoneal fluid. No free air. Ventral Wall: No hernia. Abdominal Nodes: No retroperitoneal or mesenteric adenopathy by size criteria. Vessels: Aorta, as above. Normal IVC. PELVIS: Pelvic Organs: Unremarkable. Bladder: Unremarkable. Pelvic Nodes: No enlarged lymph nodes. Miscellaneous: No inguinal hernias are seen. Bones: No aggressive osseous abnormality. IMPRESSION: No signs of renal artery stenosis. No mass seen. Dictated by: Servando Castellanos M.D. on 04/08/2025 at 16:37 Approved by: Servando Castellanos M.D. on 04/08/2025 at 16:44
[2025-04-08] MEDS: NICARDIPINE 25 MG in SODIUM CHLORIDE 0.9% 240 ML 100 MG IV (14:04)
[2025-04-08] MEDS: NITROGLYCERIN OINT 1 INCH/GM OINT...G. 0.5 INCH TOP (14:15)
--- NOTE | 2025-04-08 14:42 | PC.NURSE ---
Addendum entered by Kayy Palomino R.N. 04/08/25 18:29: Pt off nicardipine, see emar. BP staying within goal range with nitro paste in place to right upper chest. Original Note: Admit Note Patient arrived at 1110 from ER via stretcher, transferred self across to bed with assist. Unable to move LLE during NIH assessment, weak LUE, and slight left facial droop with a NIH of 7. Pt is alert and oriented x4. SpO2 upper 90s on RA. ST in the 100-110s . Nicardipine gtt 7.5 mg/hr. Goal BP to be 170s-180s/90s-100s, titrating. Nitro paste applied per MD order. Order received to remove paste if SBP less than 165. Pt was able to 2 person assist transfer to BSC, able to slightly move LLE to assist in transfer with FWW. Oriented to room and to call light/bed/tv controls. Call light within reach. Own CPAP, cell phone, and housing assistant at bedside along with clothing. Bed alarm on for safety.
--- NOTE | 2025-04-08 14:50 | ST.IPSLE ---
Visit Care Team Role Provider Type Edgar Mitchell MD Primary Care Provider Physician Specialty: Internal Medicine Address: [address] [place] [address], [facility] Email: [email or web address] Luke Canada DO Emergency Provider Physician Referring Provider Specialty: Emergency Medicine Address: [address] [place] [address], [facility] Phone: Fax: Email: [email or web address] Kishore Drew MD Admit Provider Physician Attending Provider Specialty: Internal Medicine Address: [address] [place] [address] Fax: Email: [email or web address] Diagnoses Cerebral infarction, unspecified (04/08/25) Past Medical History (Last Reviewed 01/09/24 @ 12:51 by Edgar Mitchell MD) Foot pain (Medical) Hearing loss (Medical) Hypertension (Medical) Plantar fasciitis, bilateral (Medical) Tinnitus (Medical) Speech-Language Pathology Speech/Language Eval [employer] Adult Cognitive Linguistic Eval Start: 04/08/25 14:30 Freq: Status: Active Protocol: Document 04/08/25 14:30 MM (Rec: 04/08/25 14:50 MM Desktop) Adult Cognitive Linguistic Evaluation Session Time Visit Start Time 14:10 Visit Stop Time 14:25 Total Visit Minutes 15 Visit Information Visit Number initial evaluation Referral Referring Provider Kishore Drew MD Reason for Referral ST evaluation in the setting of stroke Setting Assessment Location Acute Care Visit Type Note Type Initial evaluation Patient Information Identification Type Name Patient History Per H&P 04/08/2025: The pt is a 29 yo who presents to the ER last night with c/o left leg weakness & numbness that has been present for the past 2 weeks. He noticed it after playing football with some friends and has not improved, over the past week, he believes it has gotten worse. He is no longer able to put weight on the leg. He told the ER staff that he felt he was slurring his words but I was not able to notice this. He is normally on hypertensive medications but has been very non-compliant with taking them, in fact it has been several weeks since he took them and has not rechecked his BP at home. There is no family hx of CVA or early onset ND. He does smoke tobacco + marijuana but no other recreational drug use. The has been on change in vision, no upper ext weakness, no confusion. Per chart review, pt had an NIH stroke scale of 3 in ED . Per Imaging Impressions: CT Head 04/08/2025: Low-attenuation focus within the right nolan radiata suspicious for subacute ischemia. No superimposed hemorrhage. CT Head and Neck 04/08/2025: No significant intracranial arterial abnormality is seen. No significant abnormality is seen within the arteries of the neck. CXR 04/08/2025: No acute pulmonary process. WBC WNL at this time. 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 RN cleared ST to work with pt, pt agreeable to participate in evaluation. Pt denied hx or c/o dysphagia including coughing/choking or globus sensation with PO intake, pt reported tolerating current/baseline diet. Pt reported his speech sounds slurred compared to baseline speech, family/friend at bedside endorsed this. The Mini-Mental State Examination (MMSE) as well as information measures were utilized to assess the pt's speech, language, and cognitive linguistic skills at the bedside. Pt reported working and being independent with ADLs at baseline and verbalized concern for not being able to walk again. Informal Assessment Receptive Language Yes Normal Expressive Language Yes Normal Speech Normal No: mild dysarthria Speech Impairment(s) Imprecise articulation Cognition Normal Yes Formal Assessment Administration Complete Results The pt scored 28/30 on the Mini-Mental State Examination (MMSE), indicating cognitive-linguistic skills WFL. Pt demonstrated adequate orientation, memory recall, attention, and language abilities. There were no obvious signs of severe cognitive-linguistic deficits. Mild dysarthria noted during conversational speech, consistent with pt report. Pt's speech was 100% intelligible , however, exhibited slight imprecise articulation. Informally observed physical weakness (L>R) as pt utilized upper extremities during ST evaluation. Findings/Results Findings Cognitive-linguistic skills WFL. Mild dysarthria. ST services are not indicated at the current acute care level. 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 Prognosis Prognosis Good Plan of Care Speech-Language No Treatment Patient/Caregiver Described results of evaluation,Patient expressed Education understanding of evaluation,Family/caregivers expressed understanding of evaluation Discharge Inpatient rehab facility Recommendations
--- NOTE | 2025-04-08 15:13 | PC.NURSE ---
Pt transferred to CT by planning technician and CYNTHIA Carbajal. Bed low, side rails raised. Pt on tele via transport monitor. Cardene infusing at 7.5mg/hr. See MAR for protocol. See flowsheet for VS.
--- NOTE | 2025-04-08 18:17 | PM.HP.1 ---
History of Present Illness History of Present Illness Date Patient Seen: 04/08/25 Chief complaint: thinks he is having stroke symptoms Narrative: Chief complaint: Left leg paralysis secondary to right nolan radiata stroke History of present illness: The pt is a 29 yo who presents to the ER last night with c/o left leg weakness & numbness that has been present for the past 2 weeks. He noticed it after playing football with some friends and has not improved, over the past week, he believes it has gotten worse. He is no longer able to put weight on the leg. He told the ER staff that he felt he was slurring his words but I was not able to notice this. He is normally on hypertensive medications but has been very non-compliant with taking them, in fact it has been several weeks since he took them and has not rechecked his BP at home. There is no family hx of CVA or early onset [place]. He does smoke tobacco + marijuana but no other recreational drug use. The has been on change in vision, no upper ext weakness, no confusion, Findings in the emergency room significant for subacute stroke in the right nolan radiata on CT CT angiography is negative for significant cerebrovascular stenosis Review of systems: No unusual weight loss weight gain generalized weakness No chest pain palpitations shortness for breath wheezing No abdominal pain nausea vomiting diarrhea constipation No urinary symptoms Physical exam: Mature large frame male alert and oriented the time of my examination HEENT subtle left facial droop otherwise unremarkable Neck no JVD no carotid bruit Heart with a 3/6 holosystolic murmur at the left sternal border very hyperdynamic Lungs clear from apices to bases Abdomen nontender no bruits Extremities no edema Neurologic exam: Cranial nerves intact except slight facial asymmetry with smiling Slight weakness relative 4 or 5 left upper extremity extension and flexion at elbow slight weakness abduction and adduction at shoulder relative to right Left lower extremity 2/5 strength leg raise flexes but can not lift against gravity knee flexion-extension flexes but can not bend slight movement of toes and ankle Normal reflexes right lower extremity reflexes absent left lower extremity Alert and oriented Objective findings: Echocardiogram: 1) Severely increased left ventricular thickness (concentric) with normal size, normal wall motion, and normal systolic function (EF 55-60%). 2) Normal right ventricular size and function. 3) No significant valvular abnormalities. 4) Injection of contrast documented no interatrial shunt. 5) Hypertension present during the study (BP 178/83mmHg). 6) No prior Echo available for comparison. 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 with progressive weakness and near paralysis left lower extremity and very subtle involvement of left facial and left upper extremity Permissive hypertension on Cardene drip for afterload reduction and nitroglycerin paste for preload reduction and reducing end-diastolic pressure of the left ventricle Patient loaded with clopidogrel 300 mg and on dual antiplatelet therapy High-intensity statin Unable to get MRI at this facility due to patient body habitus unable to fit through aperture of the MRI scanner No signs of cerebrovascular stenosis or thrombus Uncontrolled hypertension with hypertensive cardiomyopathy Concentric severe thickness of the ventricular wall is quite impressive Preload nitrate we will probably be necessary for getting blood pressure to goal due to LVEDP elevation in addition to vaso dilator Permissive hypertension goal systolic pressure 170-180 for the next 24 hours DVT prophylaxis: Enoxaparin Code status: Full code blue 75 minutes were involved management evaluation of this patient [facility] Medical History Tinnitus Plantar fasciitis, bilateral Hearing loss Foot pain Hypertension Social History household members: family, children and none Smoking Status: Current every day smoker alcohol intake: current Meds Home Medications and Allergies Home Medications ?Medication ?Instructions ?Recorded ?Confirmed ?Type amlodipine 10 mg tablet 10 mg PO DAILY #90 tabs 01/09/24 04/08/25 Rx lisinopril 20 1 tab PO DAILY #90 tabs 01/09/24 04/08/25 Rx mg-hydrochlorothiazide 12.5 mg tablet spironolactone 25 mg tablet 25 mg PO DAILY #90 tabs 01/09/24 04/08/25 Rx Allergies Allergy/AdvReac Type Severity Reaction Status Date / Time No Known Drug Allergies Allergy Verified 01/09/24 14:03 Exam Vital Signs (past 8 hours): - 04/08/25 10:20 04/08/25 10:04/08/25 10:24 Temperature Pulse Rate 109 H 108 H Respiratory Rate 32 H 27 H Blood Pressure 197/91 H Pulse Oximetry 98 99 Oxygen Delivery Method Oxygen Flow Rate 04/08/25 10:25 04/08/25 10:25 04/08/25 10:30 Temperature Pulse Rate 106 H Respiratory Rate 32 H Blood Pressure 187/83 H 178/87 H Pulse Oximetry 98 Oxygen Delivery Method Oxygen Flow Rate 04/08/25 10:30 04/08/25 10:35 04/08/25 10:35 Temperature Pulse Rate 106 H 107 H Respiratory Rate 23 23 Blood Pressure 184/89 H Pulse Oximetry 98 98 Oxygen Delivery Method Oxygen Flow Rate 04/08/25 10:40 04/08/25 10:40 04/08/25 10:45 Temperature Pulse Rate 100 H Respiratory Rate 20 Blood Pressure 185/86 H 171/87 H Pulse Oximetry 98 Oxygen Delivery Method Oxygen Flow Rate 04/08/25 10:45 04/08/25 10:50 04/08/25 10:50 Temperature Pulse Rate 94 H 95 H Respiratory Rate 30 H 32 H Blood Pressure 166/80 H Pulse Oximetry 99 97 Oxygen Delivery Method Oxygen Flow Rate 04/08/25 10:52 04/08/25 11:10 04/08/25 11:10 Temperature 98.1 F Pulse Rate 113 H Respiratory Rate Blood Pressure 176/93 H Pulse Oximetry 99 Oxygen Delivery Method Oxygen Flow Rate 04/08/25 11:37 04/08/25 12:00 04/08/25 12:00 Temperature Pulse Rate 105 H 101 H Respiratory Rate 31 H 25 H Blood Pressure 171/84 H Pulse Oximetry 100 Oxygen Delivery Method Oxygen Flow Rate 04/08/25 12:06 04/08/25 12:30 04/08/25 12:30 Temperature Pulse Rate 111 H Respiratory Rate 23 Blood Pressure 193/98 H Pulse Oximetry 100 Oxygen Delivery Method Room Air Oxygen Flow Rate 0 04/08/25 13:00 04/08/25 13:00 04/08/25 13:16 Temperature Pulse Rate 111 H Respiratory Rate 19 Blood Pressure 200/91 H Pulse Oximetry Oxygen Delivery Method Room Air Oxygen Flow Rate 04/08/25 13:24 04/08/25 13:24 04/08/25 13:30 Temperature Pulse Rate 105 H 111 H Respiratory Rate 39 H 30 H Blood Pressure 184/90 H Pulse Oximetry 97 Oxygen Delivery Method Oxygen Flow Rate 04/08/25 13:31 04/08/25 13:31 04/08/25 14:00 Temperature Pulse Rate 109 H 126 H Respiratory Rate 23 26 H Blood Pressure 185/93 H Pulse Oximetry Oxygen Delivery Method Oxygen Flow Rate 04/08/25 14:03 04/08/25 14:03 04/08/25 14:12 Temperature Pulse Rate 128 H 95 H Respiratory Rate 31 H Blood Pressure 175/94 H 156/84 H Pulse Oximetry 99 98 Oxygen Delivery Method Oxygen Flow Rate 04/08/25 14:15 04/08/25 14:35 04/08/25 14:36 Temperature Pulse Rate 100 H 91 H Respiratory Rate Blood Pressure 175/94 H 168/87 H Pulse Oximetry 98 Oxygen Delivery Method Oxygen Flow Rate 04/08/25 14:37 04/08/25 14:37 04/08/25 14:47 Temperature Pulse Rate 89 101 H Respiratory Rate 29 H Blood Pressure 165/72 H 172/88 H Pulse Oximetry 98 Oxygen Delivery Method Oxygen Flow Rate 04/08/25 15:03 04/08/25 15:09 04/08/25 15:10 Temperature Pulse Rate 110 H 98 H 96 H Respiratory Rate 30 H 30 H Blood Pressure 184/95 H 166/77 H Pulse Oximetry 99 97 98 Oxygen Delivery Method Oxygen Flow Rate 04/08/25 15:10 04/08/25 15:30 04/08/25 15:30 Temperature Pulse Rate 91 H Respiratory Rate 29 H Blood Pressure 166/77 H 169/81 H Pulse Oximetry 98 Oxygen Delivery Method Oxygen Flow Rate 04/08/25 16:00 04/08/25 16:00 04/08/25 16:30 Temperature Pulse Rate 101 H 106 H Respiratory Rate 29 H 22 Blood Pressure 173/84 H Pulse Oximetry 97 98 Oxygen Delivery Method Oxygen Flow Rate 04/08/25 16:31 04/08/25 16:31 04/08/25 17:00 Temperature Pulse Rate 98 H 98 H Respiratory Rate 14 30 H Blood Pressure 155/83 H Pulse Oximetry 99 Oxygen Delivery Method Oxygen Flow Rate 04/08/25 17:00 04/08/25 17:30 04/08/25 17:31 Temperature Pulse Rate 105 H 104 H Respiratory Rate 27 H 38 H Blood Pressure 179/89 H Pulse Oximetry Oxygen Delivery Method Oxygen Flow Rate 04/08/25 17:31 04/08/25 18:00 04/08/25 18:01 Temperature Pulse Rate 86 Respiratory Rate 29 H Blood Pressure 181/84 H 175/79 H Pulse Oximetry Oxygen Delivery Method Oxygen Flow Rate 04/08/25 18:01 Temperature Pulse Rate 85 Respiratory Rate 29 H Blood Pressure Pulse Oximetry Oxygen Delivery Method Oxygen Flow Rate Oxygen Delivery Method Room Air Oxygen Flow Rate 0 Objective Labs 04/08/25 05:55 04/08/25 05:55 Labs: Laboratory Results - last 24 hr 04/08/25 04/08/25 04/08/25 01:15 04:08 05:55 WBC 8.7 9.1 RBC 4.75 4.80 Hgb 14.3 14.3 Hct 41.4 41.9 MCV 87.3 87.3 MCH 30.1 29.8 MCHC 34.4 34.1 RDW 13.7 13.8 Plt Count 198 194 Neut % (Auto) 66.2 59.7 Lymph % (Auto) 25.0 30.5 [place] % (Auto) 8.1 8.9 Eos % (Auto) 0.2 L 0.3 L Baso % (Auto) 0.5 0.6 Neut # (Auto) 5700 5400 Lymph # (Auto) 2200 2800 [place] # (Auto) 700 800 Eos # (Auto) 0 0 Baso # (Auto) 0 100 PT 12.6 H INR 1.1 APTT 28 Sodium 140 137 Potassium 3.3 L 3.1 L Chloride 104 103 Carbon Dioxide 26 25 BUN 13 10 Creatinine 0.92 0.83 Estimated GFR > 60 > 60 BUN/Creatinine Ratio 14.1 12.0 Glucose 107 H 111 H Calcium 9.5 9.1 Total Bilirubin 0.6 AST 49 ALT 54 H Alkaline Phosphatase 62 Total Creatine Kinase 779 H Troponin I 0.088 H NT-Pro-B Natriuret Pep 162 H Total Protein 8.4 H Albumin 4.7 Globulin 3.7 Albumin/Globulin Ratio 1.3 Triglycerides 135 Cholesterol 245 H LDL Cholesterol, Calc 181 H HDL Cholesterol 37 L U Opiates 300ng/mL cut Negative Ur Oxycodone Screen Negative Urine Methadone Screen Negative Ur Barbiturates Screen Negative U Tricyclic Antidepress Negative Ur Phencyclidine Scrn Negative Ur Amphetamines Screen Negative U Methamphetamines Scrn Negative Ur MDMA Scrn (Ecstasy) Negative U Benzodiazepines Scrn Negative Urine Cocaine Screen Negative U Marijuana (THC) Screen Positive H Urine pH TNP Urine Specific [place] TNP Ur Creatinine TNP Assessment & Plan Time-Based Coding :: [TOTAL MINUTES] spent with patient and on the chart (including review of chart, obtaining history, exam, reviewing outside data, placing orders, documenting exam and treatment plan, and counseling patient) on [DATE]. Quality VTE Deep Vein Thrombosis/Pulmonary Embolism Present on Admission: No
[2025-04-08] MEDS: ZOLPIDEM 5 MG TABLET PO (20:50)
[2025-04-09] VITALS (84 sets, daily range): BP systolic 112–197; BP diastolic 58–118; PULSE 78–113; RESP 0–42; TEMP 36.6–36.8; O2SAT 93–100
[2025-04-09] MEDS: NICARDIPINE 25 MG in SODIUM CHLORIDE 0.9% 240 ML IV (03:05)
[2025-04-09 04:53] LABS: Blood Urea Nitrogen 11 mg/dL (9-20); Calcium 9.3 mg/dL (8.4-10.2); Carbon Dioxide 25 mmol/L (22-32); Chloride 104 mmol/L (98-107); Estimated Glomerular Filt Rate > 60 mL/min (>60); Glucose 105 mg/dL (70-99); HEMOLYSIS < 15 (0-50); Potassium 3.6 mmol/L (3.4-5.1); Sodium 139 mmol/L (137-145)
--- NOTE | 2025-04-09 09:09 | P.PN_ITS ---
Subjective Subjective Interval history: Summary: Left leg paralysis secondary to right nolan radiata stroke History of present illness: The pt is a 29 yo who presents to the ER last night with c/o left leg weakness & numbness that has been present for the past 2 weeks. He noticed it after playing football with some friends and has not improved, over the past week, he believes it has gotten worse. He is no longer able to put weight on the leg. He told the ER staff that he felt he was slurring his words but I was not able to notice this. He is normally on hypertensive medications but has been very non-compliant with taking them, in fact it has been several weeks since he took them and has not rechecked his BP at home. There is no family hx of CVA or early onset [place]. He does smoke tobacco + marijuana but no other recreational drug use. The has been on change in vision, no upper ext weakness, no confusion, Findings in the emergency room significant for subacute stroke in the right nolan radiata on CT CT angiography is negative for significant cerebrovascular stenosis S: He was doing well, no dyspnea or pain. His left arm is now moving. It was left leg is completely paretic. He denies a headache. Exam Vital Signs (past 8 hours): - 04/09/25 01:30 04/09/25 01:31 04/09/25 01:31 Temperature Pulse Rate 86 86 Respiratory Rate 16 34 H Blood Pressure 163/81 H Pulse Oximetry 96 96 Oxygen Delivery Method 04/09/25 02:00 04/09/25 02:00 04/09/25 02:00 Temperature Pulse Rate 87 91 H Respiratory Rate 28 H 33 H Blood Pressure 167/79 H 167/79 H Pulse Oximetry 97 93 Oxygen Delivery Method 04/09/25 02:00 04/09/25 02:30 04/09/25 02:30 Temperature Pulse Rate 85 Respiratory Rate 28 H Blood Pressure 169/85 H Pulse Oximetry 96 Oxygen Delivery Method Room Air 04/09/25 03:00 04/09/25 03:00 04/09/25 03:01 Temperature 98.1 F Pulse Rate 84 Respiratory Rate 27 H Blood Pressure 158/68 H Pulse Oximetry 97 Oxygen Delivery Method 04/09/25 03:01 04/09/25 03:30 04/09/25 03:30 Temperature Pulse Rate 83 106 H Respiratory Rate 31 H 25 H Blood Pressure 168/84 H Pulse Oximetry 97 99 Oxygen Delivery Method 04/09/25 04:00 04/09/25 04:00 04/09/25 04:00 Temperature 98.1 F Pulse Rate 93 H Respiratory Rate 23 Blood Pressure Pulse Oximetry 96 98 Oxygen Delivery Method Room Air 04/09/25 04:01 04/09/25 04:01 04/09/25 04:30 Temperature Pulse Rate 88 93 H Respiratory Rate 23 26 H Blood Pressure 141/64 H Pulse Oximetry 99 Oxygen Delivery Method 04/09/25 04:31 04/09/25 04:31 04/09/25 05:00 Temperature 98.1 F Pulse Rate 95 H Respiratory Rate 21 Blood Pressure 142/82 H Pulse Oximetry Oxygen Delivery Method 04/09/25 05:00 04/09/25 05:01 04/09/25 05:01 Temperature Pulse Rate 82 78 Respiratory Rate 27 H 23 Blood Pressure 134/61 Pulse Oximetry Oxygen Delivery Method 04/09/25 05:30 04/09/25 05:30 04/09/25 06:00 Temperature Pulse Rate 83 Respiratory Rate 23 Blood Pressure 134/67 Pulse Oximetry Oxygen Delivery Method Room Air 04/09/25 06:00 04/09/25 06:00 04/09/25 06:30 Temperature Pulse Rate 81 85 Respiratory Rate 26 H 30 H Blood Pressure 126/62 112/59 L Pulse Oximetry Oxygen Delivery Method 04/09/25 06:30 04/09/25 06:30 04/09/25 07:00 Temperature Pulse Rate 80 90 Respiratory Rate 32 H 22 Blood Pressure 112/59 L Pulse Oximetry Oxygen Delivery Method 04/09/25 07:00 04/09/25 07:30 04/09/25 07:30 Temperature Pulse Rate 88 Respiratory Rate 20 Blood Pressure 133/70 131/58 L Pulse Oximetry Oxygen Delivery Method 04/09/25 08:00 04/09/25 08:00 04/09/25 08:30 Temperature Pulse Rate 84 79 Respiratory Rate 25 H 15 Blood Pressure 131/63 Pulse Oximetry Oxygen Delivery Method 04/09/25 08:30 Temperature Pulse Rate Respiratory Rate Blood Pressure 134/61 Pulse Oximetry Oxygen Delivery Method Oxygen Delivery Method Room Air Oxygen Flow Rate 0 Narrative Exam Narrative: NAD, alert and oriented. Fluent speech. Lungs are clear, normal rate and effort. Heart is regular, no murmur gallop or rub. Abdomen is soft, non distended. Extremities are free of edema. Neuro: Mild left facial droop, normal speech. Some neglect. He can lift his left arm up above his head. His left leg is completely paretic and he can not wiggle his toes. Objective Labs 04/08/25 05:55 04/09/25 03:50 Labs: Laboratory Results - last 24 hr 04/09/25 03:50 Sodium 139 Potassium 3.6 Chloride 104 Carbon Dioxide 25 BUN 11 Creatinine 0.95 Estimated GFR > 60 BUN/Creatinine Ratio 11.6 Glucose 105 H Calcium 9.3 PFSH Medical History Tinnitus Plantar fasciitis, bilateral Hearing loss Foot pain Hypertension Social History household members: family, children and none Smoking Status: Current every day smoker alcohol intake: current Assessment & Plan Assessment & Plan narrative: 1. 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 * Permissive hypertension on Cardene drip for afterload reduction and nitroglycerin paste for preload reduction and reducing end-diastolic pressure of the left ventricle * Patient loaded with clopidogrel 300 mg and on dual antiplatelet therapy * High-intensity statin * Unable to get MRI at this facility due to patient body habitus unable to fit through aperture of the MRI scanner * No signs of cerebrovascular stenosis or thrombus 2. Hypertensive urgency, present on admission and improved. 3. Uncontrolled hypertension with hypertensive cardiomyopathy * Concentric severe thickness of the ventricular wall is quite impressive * Preload nitrate we will probably be necessary for getting blood pressure to goal due to LVEDP elevation in addition to vaso dilator * Permissive hypertension goal systolic pressure 170-180 for the next 24 hours PLAN: -wean nitro paste and monitor blood pressure today. -physical therapy and occupational therapy. -he was an excellent candidate for inpatient rehab, trying to get approval for [facility]. DVT prophylaxis: * Enoxaparin Code status: * Full code blue Time-Based Coding :: [TOTAL MINUTES] spent with patient and on the chart (including review of chart, obtaining history, exam, reviewing outside data, placing orders, documenting exam and treatment plan, and counseling patient) on [DATE]. Quality VTE Deep Vein Thrombosis/Pulmonary Embolism Present on Admission: No
[2025-04-09] MEDS: ASPIRIN EC 81 MG TABLET PO (09:20)
[2025-04-09] MEDS: ENOXAPARIN 40 MG/0.4 ML SYRINGE SUBCUT ×2 (09:21→20:15)
[2025-04-09] MEDS: CLOPIDOGREL 75 MG TABLET PO (09:21)
--- NOTE | 2025-04-09 11:35 | PT.IPTN ---
Current Diagnoses Cerebral infarction, unspecified (04/08/25) Physical Therapy Treatment Note M2 PT-IP Current Condition Start: 04/08/25 10:17 Freq: NEEDED Status: Active Protocol: Document 04/08/25 08:56 MB (Rec: 04/08/25 10:36 MB Desktop) Physical Therapy Current Condition Current Condition Evaluation Date 04/08/25 Treatment Diagnosis R nolan radiata subacute ischemia, LLE weakness M3 PT-IP Subjective Start: 04/08/25 10:17 Freq: NEEDED Status: Active Protocol: Document 04/09/25 11:35 AB (Rec: 04/09/25 14:10 AB [id number]) Subjective Physical Therapy Visit Type Type Treatment Note Visit Start Time 11:35 Visit Stop Time 12:05 Number of EVENT SPECIALIST Visits 0 Physical Therapy Visit Comments Patient Comments agreeable to do PT M4 PT-IP Mobility and Gait Start: 04/08/25 10:17 Freq: NEEDED Status: Active Protocol: Document 04/09/25 11:35 AB (Rec: 04/09/25 14:10 AB [id number]) PT-Bed Mobility Assessment Supine to Sit Supine to Sit Moderate Assistance,Maximum Assistance,1 Person Assistance,2 Person Assistance,Head of Bed Elevated, Bedrails PT-Transfer Assessment Sit to and From Stand Sit to and from Maximum Assistance,2 Person Assistance,Use of Upper Stand Extremities Equipment Transfer Assistive Gait Belt,Front Wheeled Walker Device Orthotic/Prosthetic No Devices or Brace: Transfers Transfer Destination Chair Transfer Technique Stand Pivot Transfer Ability Level of Assist Maximum Assistance,2 Person Assistance,Use of Upper Extremities Comments Mobility Comments pt in bed and agreeable to do PT. completed AAROM on LLE. pt presents with LLE extensor synergy. performed inhibition techniques to decrease extensor synergy and cued pt to be able to activate flexion on LLE. pt completed supine to sit mod to max A x 1-2 and max cues. able to sit on EOB CGA. sit to stand max A x 2 and max cues. continues to have extensor synergy on LLE and unable to elevate LLE when attempting to march in place. (+) L knee buckling during one leg stance on LLE requiring max A for stabilize LLE and another max A for standing balance. completed single leg stance x 2. pt requiring max A x 2 for controlled descent to EOB . completed sit to stand again from EOB max A x 2 and max cues and completed stand pivot transfer to chair max A x 2 and max cues. pt needed assistance to move LLE. positioned pt on the chair. call light and table placed within reach. Gait Assessment Comments Gait Comments unable at this time M5 PT-IP Objective Assessments Start: 04/08/25 10:17 Freq: NEEDED Status: Active Protocol: Document 04/08/25 08:56 MB (Rec: 04/08/25 10:36 MB Desktop) Orientation Orientation/Cognition Level of Alertness Alert Orientation Name,Age,Birthday,Place,Situation Language Function No Deficits Noted Ability Safety Awareness Decreased Safety Awareness Memory Description No Deficits Noted Gross Range of Motion Upper Extremity ROM Impairments Defer to OT, pt does seem sluggish with motor awareness of LUE and use with moving hand on and off walker and for bed mobility Lower Extremity ROM Assessment Left Impaired Impairments See comments above, testing is challenging to rate today given tone presentation and no active movement with tone Strength Lower Extremity Strength Assessment Left Impaired Comments Strength Comments LLE ankle and knee without AROM and resistance to attempted PROM left knee flexion today with buckle with standing WB Coordination Assessment Gross Coordination Gross Coordination Impaired Sensation Assessment Sensation Gross Sensation WNL Comments Sensation Comments Pt does have delayed processing with sensory testing Muscle Tone Muscle Tone WNL No Comments Muscle Tone Comments PF tone left ankle and extensor tone left knee today, strong clonus to passive DF left ankle today M6 PT-IP Treatment Start: 04/08/25 10:17 Freq: NEEDED Status: Active Protocol: Document 04/09/25 11:35 AB (Rec: 04/09/25 14:10 AB [id number]) Physical Therapy Treatment Education Education Provided Safety M7 PT-IP Assessment and Plan Start: 04/08/25 10:17 Freq: NEEDED Status: Active Protocol: Document 04/09/25 11:35 AB (Rec: 04/09/25 14:10 AB [id number]) PT Summary Assessment and Plan Potential Rehabilitation Good Potential Summary Impairments Pain,ROM,Strength,Balance,Coordination,Sensation,Tone, Cognition,Bed Mobility,Transfers,Gait,Activity Tolerance Progress Towards Slow Progress - Other Goals Assessment Summary pt requiring max A x 2 for sit to stand and transfers using FWW. pt presents with LLE extensor synergy with difficulty isolating to be able to move LLE for transfers. pt will benefit from acute rehab to improve mobility independence. Goals Bed Mobility Goal Independent Transfer Goal Standby Assistance,Front Wheeled Walker Gait Goal Standby Assistance,Front Wheel Walker Gait Distance 50 Other Goals Pt will perform WNLs on standardized balance test to decrease fall risk. Pt will ascend and descend flight of steps with rail and LRAD and mod I to allow safe home entrance. Days to Meet Goals 10 Frequency of Treatment Frequency Of Once a Day Treatment Treatment Plan Physical Therapy Bed Mobility Training,Transfer Training,Gait Training, Treatment Plan Therapeutic Exercise,Balance Retraining,Discharge Planning,Hot or Cold Pack,Neuromuscular Re-ed, Coordination Retraining,Manual Therapy Recommendations To Nursing Amount of Assist Mechanical Lift Needed Discharge Recommendations PT Discharge Acute Rehab Recommendations Transportation Needs Wheelchair/Cabulance at Discharge - PT assist 2
--- NOTE | 2025-04-09 11:36 | OT.IP.TRT ---
Current Diagnoses Cerebral infarction, unspecified (04/08/25) Occupational Therapy Treatment Note M2 OT-IP Current Condition Start: 04/08/25 11:29 Freq: Status: Active Protocol: Document 04/08/25 11:30 [facility] (Rec: 04/08/25 11:54 [facility] Desktop) Occupational Therapy Current Condition Current Condition Evaluation Date 04/08/25 Treatment Diagnosis CVA Diagnosis Onset Date 04/08/25 M3 OT- IP Subjective and Pain Start: 04/08/25 11:29 Freq: Status: Active Protocol: Document 04/09/25 11:36 [facility] (Rec: 04/09/25 13:10 [facility] Desktop) OT- Subjective Occupational Therapy Visit Type Type Treatment Note Visit Start Time 11:36 Visit Stop Time 12:18 Occupational Therapy Visit Comments Patient Comments Pt agreed to get up, seen with PT due to complexity of transfer of incorporating his LLE for the transfer. Patient/Caregiver To get better. Goals OT Pain Assessment Pain When Pain Assessed At Rest Pain Present Pain Present Pain Reported Location Back Description Aching M4 OT- IP ADL's Start: 04/08/25 11:29 Freq: Status: Active Protocol: Document 04/09/25 11:36 [facility] (Rec: 04/09/25 13:10 [facility] Desktop) OT [id number] Comments OT Self-Feeding Pt states had no issues eating. Encouraged pt actively Comments use his left hand as at times pt is neglectful of his left arm. OT ADL-Grooming General Evaluation Grooming Ability Standby Assistance Comments OT Grooming Comments Pt able to use his right and left hand for grooming needs. OT ADL-Oral Care General Eval Oral Care Ability Independent Comments Oral Care Comments Pt able to do with increased time. Left hand weaker and having to use right hand more to open the mouthwash bottle. OT ADL-Dressing Comments OT Dressing Comments Not performed. OT ADL-Toileting Comments OT Toileting Not performed. Per nursing was able to transfer to with Comments FWW to BSC, however at this time best to have therapy assist or use of yogesh lift as pt has decreased control/weakness on his LLE. To try drop arm commode with pt next time. OT ADL-Bathing Comments OT Bathing Comments Not performed. M5 OT- IP IADL's Start: 04/08/25 11:29 Freq: Status: Active Protocol: Document 04/08/25 11:30 [facility] (Rec: 04/08/25 11:54 [facility] Desktop) OT-Instrumental Activities of Daily Living Home Safety Awareness Awareness of Need Good Awareness for Assistance at Home Home Safety Comments Pt states did not sleep at all but still feels that he is not at his baseline for thinking at this time as feels a little foggy. Money Management Money Management Pt needing increased time with calculations. Comments Meal Preparation Meal Preparation Pt will need assist. 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 Comments M6 OT- IP Functional Cognition Start: 04/08/25 11:29 Freq: Status: Active Protocol: Document 04/09/25 11:36 [facility] (Rec: 04/09/25 13:10 [facility] Desktop) Cognitive Factors Limiting Selfcare Function Cognitive Ability Level of Alertness Alert Patient Orientation Name,Age,Birthday,Month,Date,Year,Day of Week,Place, Situation Attention Span Capable of Focused Attention,Capable of Sustained Ability Attention Ability to Follow Able to Follow One Step Commands Commands Cognitive Comments Cognitive Assessment Pt able to follow command and having difficulty to Comments initiate his LLE movement, however after education and practice appears to have a little more control. OT- Vision and Hearing OT- Vision Assessment Vision Assessment Left neglect. Pt able to keep his eyes closed easier Comments today. M7 OT- IP Mobility and Balance Start: 04/08/25 11:29 Freq: Status: Active Protocol: Document 04/09/25 11:36 [facility] (Rec: 04/09/25 13:10 [facility] Desktop) OT- Bed Mobility Assessment Supine to Sit Supine to Sit Assist Moderate Assistance OT-Transfer Assessment Sit to and From Stand Sit to and from Moderate Assistance,Maximum Assistance,2 Person Stand Assistance Transfers Transfer Ability Maximum Assistance,2 Person Assistance Comments Mobility Comments Pt needing assist to help get his trunk upright today. Pt needing to use his RLE to help move his LLE to the edge of bed. Pt having difficulty to reach over with his LUE to the bed rail to assist. MAX AX 2 to stand to the FWW as assisting pt for alignment of his LLE so able to put weight on it. Pt needing assist for weight shifting and to help move his LLE. At this time much safer to yogesh pt unless therapy assist at this time due to lack of movement and control on his LLE. OT- Balance Assessment Sitting Balance and Reactions Static Sitting Good Balance Ability Dynamic Sitting Fair Balance Ability Standing Balance and Reactions Static Standing Poor Balance Ability Dynamic Standing Poor Balance Ability Comments Other Balance Tests/ Pt able to sit to midline today with SBA but needing Deviations/Treatment cues to realign his hips. : M8 OT- IP Objective Assessments Start: 04/08/25 11:29 Freq: Status: Active Protocol: Document 04/09/25 11:36 [facility] (Rec: 04/09/25 13:10 [facility] Desktop) OT Strength Upper Extremity Strength Assessment Left Impaired Shoulder 4-/5 Elbow 4 Forearm 4 Wrist 4 Hand 4- Comments Strength Comments Pt's UE improvement in strength. Pt needing to use his LUE as at time neglect use of it. Educated pt to actively keep track of his LUE. OT-Muscle Tone Assessment Comments Muscle Tone Comments Extensor tone with LLE. M9 OT- IP Assessment and Plan Start: 04/08/25 11:29 Freq: Status: Active Protocol: Document 04/09/25 11:36 [facility] (Rec: 04/09/25 13:10 [facility] Desktop) OT Summary Assessment and Plan Potential Rehabilitation Excellent Potential Analytic Complexity Moderate at Evaluation Summary OT Impairments Pain,Range of Motion,Strength,Balance,Coordination, Sensation,Functional Cognition,Functional Mobility,Self -Feeding,Grooming,Dressing,Toileting,Bathing,Toilet Transfers Progress Towards Progressing Toward Goals Goals Assessment Summary Pt able to move his LUE more for ADL and mobility needs . However pt needing cues to use the LUE at time due to neglect. Pt has a little more active control on his LLE today and educated on exercises to do while in bed and recliner. Pt is highly motivated to get better. Pt to go to acute rehab when medically stable. Goals Self-Feeding Goal Independent Grooming Goal Independent Dressing Goal Independent Toileting Goal Independent Bathing Goal Independent Toilet Transfer Goal Independent Shower Transfer Goal Independent Days to Meet Goals 25 Frequency of Treatment Frequency Of Twice a Day Treatment Treatment Plan OT Treatment Plan ADL Training,Functional Cognition Training,Functional Mobility,Neuromuscular Re-education,Therapeutic Exercises,Patient/Family Education,Discharge Planning Other Treatment Transfer with FWW to [facility] with MODA X2. Recommendations and Next Treatment Focus Discharge Recommendations OT Discharge Acute Rehab Recommendations Transportation Needs Wheelchair/Cabulance at Discharge
--- NOTE | 2025-04-09 12:12 | CM.DANOTE ---
Addendum entered by BLANCA Salmeron 04/09/25 13:33: per charger operator helper, pt and friend asking for work excuse letter. INFORMATION SYSTEMS SECURITY DEVELOPER completed letter and provider kindly signed it. INFORMATION SYSTEMS SECURITY DEVELOPER handed letter to pt and friend in room. Friend Rafi kindly agreed to transport pt tomorrow () if auth is secured Original Note: DCP Assessment note pt is a 29yo M admitted following a stroke/hypertension. PCP Kotal Payer AYESHA out of [facility] and self pay INFORMATION SYSTEMS SECURITY DEVELOPER reviewed EMR. per PT/OT/speech, rec acute inpt rehab. left sided deficits for mobility/ADLs and cog impairments. 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 lives in [place] with partner benjie. per RN, attempting to switch pt to PO BP meds/get off drip today. has had lots of friends at bedside. INFORMATION SYSTEMS SECURITY DEVELOPER met with pt in room and introduced self and role. pt resting in bed. confirms agreement with dc to INPT Acute rehab, preference for [facility]. likely report someone could transport him tomorrow. INFORMATION SYSTEMS SECURITY DEVELOPER answered questions to best of ability. INFORMATION SYSTEMS SECURITY DEVELOPER sent initals referral to Arslan from [facility]. Arslan reports they have beds, can accept, and will submit for auth today. need pt BP to be stable on PO meds. likely to get auth in next day or two. RN KINDLY agreed to update pt on acceptance and auth pending. P: anticipate dc in next day or to to [facility] pending auth/medical stability. confirm pt has someone that could transport him. CM team will continue to follow as needed for DCP coordination BLANCA Salmeron Discharge Planning/Care Management CM Discharge Assessment Start: 04/08/25 06:41 Freq: Status: Active Protocol: Document 04/09/25 12:11 [facility] (Rec: 04/09/25 12:12 [facility] Desktop) Discharge Planning Assessment Assigned Discharge BLANCA Luna Pouncing Lathe Operator DPOA/Assigned Benjie, partner Designee Name Contact Information [phone] Advance Directives? No History Provided By Patient Prior Living Apartment/Condo Arrangements Household Members family,children,none Type of Drives own vehicle transporation used prior to admit Independent with ADL Yes 's Is patient alert and Yes oriented? Discharge Plan Inpatient Rehab Unit Whiteboard Updated Yes in Patient Room with name and ext. # of Liability Claims Manager Review Status In Process Please Provide Date 04/09/25 Initial DC Assessment Was Performed Next Review Type Continued Stay Review
--- NOTE | 2025-04-09 14:26 | OT.IPNOTE ---
Checking on pt for second OT treatment.Pt just placed back in bed via yogesh lift. Pt BP 191/107 and therefore check on pt tomorrow. Spoke to pt regarding safer option to go by wc vs car to acute care and pt is agreement. Able to notify CM of his preference now.
--- NOTE | 2025-04-09 16:27 | PC.NURSE ---
Day Shift Note Pt is alert and oriented x4. NIH continues at 7, slightly slurred/pressured speech, slight left facial droop, weakness to LUE, and no movement to LLE. Torie lift to BSC and back per PT/OT recommendations. Nitro paste removed to right chest at [address] Gilliam, BP at goal currently in the 180s/100s. Call light within reach, using appropriately to make needs known.
[2025-04-09] MEDS: FUROSEMIDE 40 MG/4 ML VIAL IV (17:21)
[2025-04-09] MEDS: AMLODIPINE 5 MG TABLET 10 MG PO (17:21)
[2025-04-09] MEDS: ACETAMINOPHEN 325 MG TABLET 650 MG PO (20:07)
[2025-04-09] MEDS: ATORVASTATIN 20 MG TABLET 40 MG PO (20:15)
[2025-04-09] MEDS: hydrALAZINE 20 MG/ML VIAL 10 MG IV (20:56)
[2025-04-09] MEDS: ZOLPIDEM 5 MG TABLET PO (23:37)
[2025-04-10] VITALS (115 sets, daily range): BP systolic 129–210; BP diastolic 55–118; PULSE 80–121; RESP 0–49; TEMP 36.6–36.7; O2SAT 97–100
[2025-04-10] MEDS: NICARDIPINE 25 MG in SODIUM CHLORIDE 0.9% 240 ML 50 MG IV (00:48)
[2025-04-10 03:20] LABS: Add Manual Diff / Slide Review NO; Hematocrit 42.8 % (41-53); Hemoglobin 14.7 g/dL (13.5-17.5); Lymphocytes Absolute Auto 3100 /uL (1100-4500); Mean Corpuscular HGB Conc 34.3 % (30-36); Mean Corpuscular Hemoglobin 30.0 PG (26-34); Mean Corpuscular Volume 87.5 fL (80-100); Platelet Count 210 X10^3/uL (150-400)
[2025-04-10 03:30] LABS: Alanine Aminotransferase 52 IU/L (<50); Albumin 4.5 g/dL (3.5-5.0); Albumin Globulin Ratio 1.3 (1.0-2.8); Alkaline Phosphatase 56 U/L (38-126); Blood Urea Nitrogen 12 mg/dL (9-20); Calcium 9.1 mg/dL (8.4-10.2); Carbon Dioxide 25 mmol/L (22-32); Chloride 103 mmol/L (98-107); Estimated Glomerular Filt Rate > 60 mL/min (>60); Globulin 3.5 g/dL (1.7-4.1); Glucose 132 mg/dL (70-99); HEMOLYSIS < 15 (0-50); Potassium 3.3 mmol/L (3.4-5.1); Sodium 138 mmol/L (137-145); Total Protein 8.0 g/dL (6.3-8.2)
[2025-04-10 04:30] LABS: MRSA (Nasal) PCR NOT DETECTED (Not Detect)
[2025-04-10] MEDS: AMLODIPINE 5 MG TABLET 10 MG PO (08:38)
[2025-04-10] MEDS: FUROSEMIDE 40 MG/4 ML VIAL IV (08:38)
[2025-04-10] MEDS: CLOPIDOGREL 75 MG TABLET PO (08:38)
[2025-04-10] MEDS: ASPIRIN EC 81 MG TABLET PO (08:38)
[2025-04-10] MEDS: ENOXAPARIN 40 MG/0.4 ML SYRINGE SUBCUT ×2 (08:39→21:10)
[2025-04-10] MEDS: NICARDIPINE 25 MG in SODIUM CHLORIDE 0.9% 240 ML IV (08:53)
--- NOTE | 2025-04-10 09:28 | P.PN_ITS ---
Subjective Subjective Interval history: He was placed back on nicardipine drip overnight for hypertensive urgency. Subjective: He feels well today. The left leg still does not move other than some ability to flex at the hip. Denies any cough, or shortness a breath. The left arm is somewhat weak but he can lift it above his head. Exam Vital Signs (past 8 hours): - 04/10/25 01:30 04/10/25 01:30 04/10/25 01:35 Pulse Rate 96 H Respiratory Rate 18 Blood Pressure 153/76 H 163/77 H Pulse Oximetry Oxygen Delivery Method Oxygen Flow Rate 0 04/10/25 01:35 04/10/25 01:40 04/10/25 01:40 Pulse Rate 110 H 100 H Respiratory Rate 33 H 23 Blood Pressure 154/74 H Pulse Oximetry Oxygen Delivery Method Oxygen Flow Rate 0 0 04/10/25 01:45 04/10/25 01:45 04/10/25 01:50 Pulse Rate 115 H Respiratory Rate 31 H Blood Pressure 198/92 H 167/60 H Pulse Oximetry Oxygen Delivery Method Oxygen Flow Rate 0 04/10/25 01:50 04/10/25 01:55 04/10/25 01:55 Pulse Rate 94 H 105 H Respiratory Rate 23 21 Blood Pressure 163/110 H Pulse Oximetry Oxygen Delivery Method Oxygen Flow Rate 0 0 04/10/25 02:00 04/10/25 02:00 04/10/25 02:05 Pulse Rate 111 H 115 H Respiratory Rate 30 H 37 H Blood Pressure 169/94 H Pulse Oximetry Oxygen Delivery Method Oxygen Flow Rate 0 0 04/10/25 02:05 04/10/25 02:10 04/10/25 02:10 Pulse Rate 92 H Respiratory Rate 30 H Blood Pressure 172/97 H 142/60 H Pulse Oximetry Oxygen Delivery Method Oxygen Flow Rate 0 04/10/25 02:15 04/10/25 02:15 04/10/25 02:20 Pulse Rate 90 Respiratory Rate 31 H Blood Pressure 143/63 H 142/60 H Pulse Oximetry Oxygen Delivery Method Oxygen Flow Rate 0 04/10/25 02:20 04/10/25 02:25 04/10/25 02:25 Pulse Rate 89 87 Respiratory Rate 30 H 31 H Blood Pressure 134/63 Pulse Oximetry Oxygen Delivery Method Oxygen Flow Rate 0 0 04/10/25 02:30 04/10/25 02:30 04/10/25 02:35 Pulse Rate 86 Respiratory Rate 24 Blood Pressure 131/55 L 129/60 Pulse Oximetry Oxygen Delivery Method Oxygen Flow Rate 0 04/10/25 02:35 04/10/25 02:40 04/10/25 02:40 Pulse Rate 87 107 H Respiratory Rate 28 H 15 Blood Pressure 162/78 H Pulse Oximetry Oxygen Delivery Method Oxygen Flow Rate 0 0 04/10/25 02:45 04/10/25 02:45 04/10/25 02:50 Pulse Rate 101 H Respiratory Rate 19 Blood Pressure 146/67 H 142/63 H Pulse Oximetry Oxygen Delivery Method Oxygen Flow Rate 0 04/10/25 02:50 04/10/25 02:55 04/10/25 02:55 Pulse Rate 88 96 H Respiratory Rate 27 H 26 H Blood Pressure 151/70 H Pulse Oximetry Oxygen Delivery Method Oxygen Flow Rate 0 0 04/10/25 03:00 04/10/25 03:00 04/10/25 03:05 Pulse Rate 98 H 96 H Respiratory Rate 32 H 31 H Blood Pressure 169/87 H Pulse Oximetry Oxygen Delivery Method Oxygen Flow Rate 0 0 04/10/25 03:05 04/10/25 03:11 04/10/25 03:11 Pulse Rate 98 H Respiratory Rate 23 Blood Pressure 177/89 H 176/90 H Pulse Oximetry Oxygen Delivery Method Oxygen Flow Rate 0 04/10/25 03:15 04/10/25 03:15 04/10/25 03:30 Pulse Rate 98 H Respiratory Rate 25 H Blood Pressure 173/83 H 170/83 H Pulse Oximetry Oxygen Delivery Method Oxygen Flow Rate 0 04/10/25 03:30 04/10/25 03:45 04/10/25 03:45 Pulse Rate 97 H 85 Respiratory Rate 27 H 28 H Blood Pressure 148/71 H Pulse Oximetry Oxygen Delivery Method Oxygen Flow Rate 0 0 04/10/25 04:00 04/10/25 04:00 04/10/25 04:00 Pulse Rate 83 Respiratory Rate 28 H Blood Pressure 144/74 H Pulse Oximetry 99 Oxygen Delivery Method Room Air Oxygen Flow Rate 0 0 04/10/25 04:15 04/10/25 04:15 04/10/25 04:30 Pulse Rate 87 117 H Respiratory Rate 28 H 35 H Blood Pressure 163/81 H Pulse Oximetry Oxygen Delivery Method Oxygen Flow Rate 0 0 04/10/25 04:55 04/10/25 04:55 04/10/25 05:00 Pulse Rate 92 H 85 Respiratory Rate 23 Blood Pressure 145/84 H Pulse Oximetry Oxygen Delivery Method Oxygen Flow Rate 0 0 04/10/25 05:00 04/10/25 05:15 04/10/25 05:15 Pulse Rate 80 Respiratory Rate 30 H Blood Pressure 157/88 H 151/90 H Pulse Oximetry Oxygen Delivery Method Oxygen Flow Rate 0 04/10/25 05:30 04/10/25 05:30 04/10/25 05:45 Pulse Rate 83 Respiratory Rate 30 H Blood Pressure 153/75 H 163/79 H Pulse Oximetry Oxygen Delivery Method Oxygen Flow Rate 0 04/10/25 05:45 04/10/25 06:00 04/10/25 06:00 Pulse Rate 85 90 Respiratory Rate 30 H 22 Blood Pressure 162/90 H Pulse Oximetry Oxygen Delivery Method Oxygen Flow Rate 0 0 04/10/25 06:15 04/10/25 06:15 04/10/25 06:30 Pulse Rate 83 Respiratory Rate 32 H Blood Pressure 153/77 H 154/81 H Pulse Oximetry Oxygen Delivery Method Oxygen Flow Rate 0 04/10/25 06:30 04/10/25 06:45 04/10/25 06:45 Pulse Rate 85 105 H Respiratory Rate 32 H 21 Blood Pressure 210/93 H Pulse Oximetry Oxygen Delivery Method Oxygen Flow Rate 0 0 04/10/25 06:50 04/10/25 06:50 04/10/25 07:00 Pulse Rate 88 93 H Respiratory Rate 21 0 L Blood Pressure 183/89 H Pulse Oximetry Oxygen Delivery Method Oxygen Flow Rate 0 0 04/10/25 07:00 04/10/25 07:00 04/10/25 07:15 Pulse Rate 92 H Respiratory Rate 27 H Blood Pressure 165/82 H Pulse Oximetry Oxygen Delivery Method Room Air Oxygen Flow Rate 0 04/10/25 07:15 04/10/25 07:30 04/10/25 07:30 Pulse Rate 107 H Respiratory Rate 13 Blood Pressure 174/83 H 169/91 H Pulse Oximetry Oxygen Delivery Method Oxygen Flow Rate 04/10/25 07:45 04/10/25 07:45 04/10/25 08:00 Pulse Rate 92 H Respiratory Rate 0 L Blood Pressure 167/79 H Pulse Oximetry 98 Oxygen Delivery Method Room Air Oxygen Flow Rate 04/10/25 08:00 04/10/25 08:00 04/10/25 08:15 Pulse Rate 87 Respiratory Rate 0 L Blood Pressure 163/81 H 154/81 H Pulse Oximetry Oxygen Delivery Method Oxygen Flow Rate 04/10/25 08:15 04/10/25 08:30 04/10/25 08:30 Pulse Rate 92 H 110 H Respiratory Rate 0 L 19 Blood Pressure 172/99 H Pulse Oximetry Oxygen Delivery Method Oxygen Flow Rate 04/10/25 08:45 04/10/25 08:45 04/10/25 09:00 Pulse Rate 115 H Respiratory Rate Blood Pressure 153/100 H 155/82 H Pulse Oximetry Oxygen Delivery Method Oxygen Flow Rate 04/10/25 09:00 Pulse Rate 103 H Respiratory Rate 8 L Blood Pressure Pulse Oximetry Oxygen Delivery Method Oxygen Flow Rate Oxygen Delivery Method Room Air Oxygen Flow Rate 0 Narrative Exam Narrative: NAD, alert and oriented. Fluent speech. Lungs are clear, normal rate and effort. Heart is regular, no murmur gallop or rub. Abdomen is soft, non distended. Extremities are free of edema. Unable to move the left leg other than mild flexion at the hip. Objective Labs 04/10/25 03:10 04/10/25 03:10 Labs: Laboratory Results - last 24 hr 04/10/25 04/10/25 02:52 03:10 WBC 9.4 RBC 4.89 Hgb 14.7 Hct 42.8 MCV 87.5 MCH 30.0 MCHC 34.3 RDW 13.7 Plt Count 210 Neut % (Auto) 55.1 Lymph % (Auto) 32.5 [place] % (Auto) 11.4 Eos % (Auto) 0.4 L Baso % (Auto) 0.6 Neut # (Auto) 5200 Lymph # (Auto) 3100 [place] # (Auto) 1100 H Eos # (Auto) 0 Baso # (Auto) 100 Sodium 138 Potassium 3.3 L Chloride 103 Carbon Dioxide 25 BUN 12 Creatinine 0.83 Estimated GFR > 60 BUN/Creatinine Ratio 14.5 Glucose 132 H Calcium 9.1 Total Bilirubin 0.6 AST 36 ALT 52 H Alkaline Phosphatase 56 Total Protein 8.0 Albumin 4.5 Globulin 3.5 Albumin/Globulin Ratio 1.3 Nasal Screen MRSA (PCR) Not detected [facility] Medical History Tinnitus Plantar fasciitis, bilateral Hearing loss Foot pain Hypertension Social History household members: family, children and none Smoking Status: Current every day smoker alcohol intake: current Assessment & Plan Assessment & Plan narrative: 1. 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 * Permissive hypertension on Cardene drip for afterload reduction and nitroglycerin paste for preload reduction and reducing end-diastolic pressure of the left ventricle * Patient loaded with clopidogrel 300 mg and on dual antiplatelet therapy * High-intensity statin * Unable to get MRI at this facility due to patient body habitus unable to fit through aperture of the MRI scanner * No signs of cerebrovascular stenosis or thrombus2. Hypertensive urgency, present on admission and improved. 3. Uncontrolled hypertension with hypertensive cardiomyopathy * Concentric severe thickness of the ventricular wall is quite impressive * Preload nitrate we will probably be necessary for getting blood pressure to goal due to LVEDP elevation in addition to vaso dilator * Permissive hypertension goal systolic pressure 170-180 for the next 24 hours PLAN: -wean nicardipine and monitor blood pressure today. Resume PO medications (HCTZ- Lis and spironolactone). -physical therapy and occupational therapy. -Needs inpatient rehab, trying to get approval for [facility]. Time-Based Coding :: [TOTAL MINUTES] spent with patient and on the chart (including review of chart, obtaining history, exam, reviewing outside data, placing orders, documenting exam and treatment plan, and counseling patient) on [DATE]. Quality VTE Deep Vein Thrombosis/Pulmonary Embolism Present on Admission: No
[2025-04-10] MEDS: SPIRONOLACTONE 25 MG TABLET PO (09:50)
[2025-04-10] MEDS: POTASSIUM CHLORIDE 20 MEQ TAB 40 MEQ PO ×2 (09:50→14:57)
--- NOTE | 2025-04-10 12:38 | PC.NURSE ---
0700 - 1230 Nicardipine drip infusing at 2.5 mg/hr, 25 mL/hr. MAR infusion values are incorrect for this timeframe.
[2025-04-10] MEDS: ACETAMINOPHEN 325 MG TABLET 650 MG PO (13:44)
--- NOTE | 2025-04-10 14:22 | PT-IP ANOTE ---
Pt's BP and HR elevated this afternoon with BP in the 170s-180s/70s-90s and HR in the 110s at rest. Spoke with OT, nsg and MD and there will be a medication change to help address high BP and team agrees that holding therapies is best option today. Pt in agreement and con't PT efforts tomorrow.
--- NOTE | 2025-04-10 14:22 | OT.IPNOTE ---
Pt still having high BP and at this time hold therapy as hospitalist to modify medications for pt . To check on pt tomorrow.
[2025-04-10] MEDS: NICARDIPINE 25 MG in SODIUM CHLORIDE 0.9% 240 ML 75 MG IV ×4 (15:10→22:15)
--- NOTE | 2025-04-10 15:34 | CM.DPNOTE ---
DCP Cont Reviewed chart. Patient discussed in multidisciplinary rounds. BP went up last night placed back on nicardipine drip . Trying to resume po today. Medical stability not until tomorrow.? Updated Arslan at [facility]. Insurance auth has not been secured yet. Met w/ patient, aunt, and a good friend. Reviewed summary of above. Patient eager to start his time at [facility] when medically stable and insurance auth in place. Patient also has [employer]. Social work team following clinical course closely. JW
[2025-04-10] MEDS: ATORVASTATIN 20 MG TABLET 40 MG PO (21:11)
[2025-04-10] MEDS: HYDROCODONE/ACET 5/325 TABLET 1 TAB PO (21:18)
[2025-04-10] MEDS: ZOLPIDEM 5 MG TABLET PO (21:29)
[2025-04-11] VITALS (95 sets, daily range): BP systolic 123–232; BP diastolic 61–108; PULSE 80–134; RESP 0–49; TEMP 36.9; O2SAT 82–100
[2025-04-11] MEDS: NICARDIPINE 25 MG in SODIUM CHLORIDE 0.9% 240 ML 75 MG IV ×4 (01:19→23:23)
[2025-04-11] MEDS: ACETAMINOPHEN 325 MG TABLET 650 MG PO ×3 (04:32→22:34)
[2025-04-11 05:46] LABS: Blood Urea Nitrogen 15 mg/dL (9-20); Calcium 9.2 mg/dL (8.4-10.2); Carbon Dioxide 24 mmol/L (22-32); Chloride 103 mmol/L (98-107); Estimated Glomerular Filt Rate > 60 mL/min (>60); Glucose 105 mg/dL (70-99); HEMOLYSIS < 15 (0-50); Potassium 4.0 mmol/L (3.4-5.1); Sodium 136 mmol/L (137-145)
--- NOTE | 2025-04-11 07:18 | DI.CT.S_ITS ---
PROCEDURE: CT HEAD/BRAIN WO CON INDICATIONS: neuro changes , recent CVA TECHNIQUE: Noncontrast 4.5 mm thick angled axial sections acquired from the foramen magnum to the vertex, with coronal and sagittal reformats. For radiation dose reduction, the following was used: automated exposure control, adjustment of mA and/or kV according to patient size. COMPARISON: [facility], CT, CT HEAD/BRAIN WO CON, 04/08/2025, 1:13. FINDINGS: Image quality: Diagnostic. CSF spaces: Basal cisterns are patent. No extra-axial fluid collections. Ventricles are normal in size and shape. Brain: Hypoattenuating area is seen in the right FILI territory involving the right corpus callosum and medial right frontal lobe as well as the anterior right basal ganglia, compatible with evolving infarct. No mass effect or midline shift. No hemorrhagic conversion. No midline shift. No intracranial mass effect or hemorrhage. [place]-white matter interface is normal. Skull and face: Calvarium and visualized facial bones are intact, without suspicious lesions. Sinuses: Visualized sinuses and mastoids are clear. IMPRESSION: Evolving right FILI territory infarct. No hemorrhagic conversion. No significant mass effect or midline shift. Approved by: Juaquin Toney M.D. on 04/11/2025 at 8:16
[2025-04-11 07:59] LABS: Add Manual Diff / Slide Review NO; Hematocrit 43.2 % (41-53); Hemoglobin 14.5 g/dL (13.5-17.5); Lymphocytes Absolute Auto 3900 /uL (1100-4500); Mean Corpuscular HGB Conc 33.4 % (30-36); Mean Corpuscular Hemoglobin 29.4 PG (26-34); Mean Corpuscular Volume 88.0 fL (80-100); Platelet Count 243 X10^3/uL (150-400)
--- NOTE | 2025-04-11 08:00 | PC.NURSE ---
Rapid Response Event @0648: This nurse was informed pt reported inability to move left arm. Pt was alert and oriented, demonstrated inability to move LUE on command, sensation unremarkable, strength 4/5, ring and pinky fingers demonstrated decreased movement. @0650: Rapid response activated @0658: BP 145/108 (119), HR 104, RR 23, SpO2@99% RA @0700: Labs drawn, blood glucose 129, NIH 6 @0710: BP: 144/77 (107), HR 97, RR 25, SpO2@99% RA @0717: BP: 148/83 (110), HR 98, RR 29, SpO2@100% RA @0720: Pt taken off unit to diagnostics for CT
[2025-04-11 08:01] LABS: INR 1.1 (0.9-1.3); Prothrombin Time 12.7 SECONDS (9.4-12.5)
[2025-04-11 08:12] LABS: Alanine Aminotransferase 45 IU/L (<50); Albumin 4.5 g/dL (3.5-5.0); Albumin Globulin Ratio 1.3 (1.0-2.8); Alkaline Phosphatase 71 U/L (38-126); Blood Urea Nitrogen 15 mg/dL (9-20); Calcium 9.4 mg/dL (8.4-10.2); Carbon Dioxide 24 mmol/L (22-32); Chloride 103 mmol/L (98-107); Estimated Glomerular Filt Rate > 60 mL/min (>60); Globulin 3.5 g/dL (1.7-4.1); Glucose 118 mg/dL (70-99); HEMOLYSIS < 15 (0-50); Potassium 4.1 mmol/L (3.4-5.1); Sodium 138 mmol/L (137-145); Total Protein 8.0 g/dL (6.3-8.2)
[2025-04-11] MEDS: CLOPIDOGREL 75 MG TABLET PO (08:50)
[2025-04-11] MEDS: ENOXAPARIN 40 MG/0.4 ML SYRINGE SUBCUT ×2 (08:50→20:19)
[2025-04-11] MEDS: ASPIRIN EC 81 MG TABLET PO (08:50)
[2025-04-11] MEDS: AMLODIPINE 5 MG TABLET 10 MG PO (08:50)
[2025-04-11] MEDS: SPIRONOLACTONE 25 MG TABLET PO (08:50)
[2025-04-11] MEDS: SODIUM CHLORIDE 0.9% FLUSH 10 ML IV ×2 (08:51→21:28)
--- NOTE | 2025-04-11 12:45 | P.PN_ITS ---
Subjective Subjective Interval history: Summary: This patient has a history of uncontrolled hypertension was ultimately admitted with a stroke with left arm and leg weakness and hypertensive urgency. He was requiring nicardipine on and off as his oral medications have been titrated up. As of April 10 he primarily had a dense paresis of the left leg with good left arm movement. Unfortunately on the morning of April 11 he developed left arm weakness as well. Repeat imaging indicated evolution of his stroke. S: Weakness of the left arm and leg, otherwise doing well. No headache or dyspnea. Exam Vital Signs (past 8 hours): - 04/11/25 05:00 04/11/25 05:00 04/11/25 05:30 Temperature Pulse Rate 86 Respiratory Rate 0 L Blood Pressure 171/70 H 159/72 H Pulse Oximetry Oxygen Delivery Method Oxygen Flow Rate 0 04/11/25 05:30 04/11/25 06:00 04/11/25 06:00 Temperature Pulse Rate 90 97 H Respiratory Rate 19 23 Blood Pressure 156/76 H Pulse Oximetry Oxygen Delivery Method Oxygen Flow Rate 0 0 04/11/25 06:30 04/11/25 06:30 04/11/25 06:58 Temperature Pulse Rate 82 108 H Respiratory Rate 0 L 21 Blood Pressure 163/75 H Pulse Oximetry 99 Oxygen Delivery Method Oxygen Flow Rate 0 0 04/11/25 06:58 04/11/25 07:00 04/11/25 07:00 Temperature Pulse Rate 104 H Respiratory Rate 23 Blood Pressure 145/108 H Pulse Oximetry 99 Oxygen Delivery Method Room Air Oxygen Flow Rate 0 04/11/25 07:10 04/11/25 07:10 04/11/25 07:17 Temperature Pulse Rate 97 H 98 H Respiratory Rate 25 H 29 H Blood Pressure 144/77 H Pulse Oximetry 99 100 Oxygen Delivery Method Oxygen Flow Rate 0 0 04/11/25 07:17 04/11/25 07:40 04/11/25 07:41 Temperature Pulse Rate 92 H Respiratory Rate Blood Pressure 148/83 H 143/77 H Pulse Oximetry Oxygen Delivery Method Oxygen Flow Rate 0 04/11/25 07:41 04/11/25 07:45 04/11/25 07:45 Temperature Pulse Rate 90 87 Respiratory Rate 26 H 28 H Blood Pressure 151/69 H Pulse Oximetry Oxygen Delivery Method Oxygen Flow Rate 0 0 04/11/25 08:00 04/11/25 08:00 04/11/25 08:00 Temperature 98.4 F Pulse Rate Respiratory Rate Blood Pressure 147/74 H Pulse Oximetry 99 Oxygen Delivery Method Room Air Oxygen Flow Rate 04/11/25 08:00 04/11/25 08:15 04/11/25 08:15 Temperature Pulse Rate 85 81 Respiratory Rate 15 28 H Blood Pressure 145/69 H Pulse Oximetry Oxygen Delivery Method Oxygen Flow Rate 04/11/25 08:30 04/11/25 08:30 04/11/25 08:45 Temperature Pulse Rate 93 H 87 Respiratory Rate 8 L 24 Blood Pressure 150/71 H Pulse Oximetry Oxygen Delivery Method Oxygen Flow Rate 04/11/25 08:45 04/11/25 09:00 04/11/25 09:00 Temperature Pulse Rate 101 H Respiratory Rate 28 H Blood Pressure 137/70 162/89 H Pulse Oximetry Oxygen Delivery Method Oxygen Flow Rate 04/11/25 09:15 04/11/25 09:15 04/11/25 09:20 Temperature Pulse Rate 119 H 95 H Respiratory Rate 29 H Blood Pressure 155/84 H 136/70 Pulse Oximetry Oxygen Delivery Method Oxygen Flow Rate 04/11/25 09:30 04/11/25 09:30 04/11/25 09:45 Temperature Pulse Rate 119 H 98 H Respiratory Rate 35 H 30 H Blood Pressure 163/90 H Pulse Oximetry Oxygen Delivery Method Oxygen Flow Rate 04/11/25 09:45 04/11/25 10:00 04/11/25 10:30 Temperature Pulse Rate 105 H 102 H Respiratory Rate 31 H 28 H Blood Pressure 161/87 H Pulse Oximetry Oxygen Delivery Method Oxygen Flow Rate 04/11/25 10:33 04/11/25 10:33 04/11/25 10:45 Temperature Pulse Rate 93 H 80 Respiratory Rate 28 H 35 H Blood Pressure 136/70 Pulse Oximetry Oxygen Delivery Method Oxygen Flow Rate 04/11/25 10:45 04/11/25 11:00 04/11/25 11:00 Temperature Pulse Rate 109 H Respiratory Rate 26 H Blood Pressure 123/61 152/81 H Pulse Oximetry Oxygen Delivery Method Oxygen Flow Rate 04/11/25 11:15 04/11/25 11:15 Temperature Pulse Rate 119 H Respiratory Rate 32 H Blood Pressure 172/94 H Pulse Oximetry Oxygen Delivery Method Oxygen Flow Rate Oxygen Delivery Method Room Air Oxygen Flow Rate 0 Narrative Exam Narrative: NAD, alert and oriented. Fluent speech. Lungs are clear, normal rate and effort. Heart is regular, no murmur gallop or rub. Abdomen is soft, non distended. Extremities are free of edema. Neglect Normal speech Paresis of left arm and leg. He can barely move his left hand and can not wiggle his toes remove the leg except for mild flexion contraction at the hip. Objective Imaging Repeat brain CT: : Radiologist's impression: Evolving right FILI territory infarct. No hemorrhagic conversion. No significant mass effect or midline shift. Labs 04/11/25 06:58 04/11/25 06:58 Labs: Laboratory Results - last 24 hr 04/11/25 04/11/25 04/11/25 04:20 06:56 06:58 WBC 13.7 H RBC 4.91 Hgb 14.5 Hct 43.2 MCV 88.0 MCH 29.4 MCHC 33.4 RDW 13.5 Plt Count 243 Neut % (Auto) 61.5 Lymph % (Auto) 28.8 Bledsoe % (Auto) 9.0 Eos % (Auto) 0.4 L Baso % (Auto) 0.3 Neut # (Auto) 8400 H Lymph # (Auto) 3900 Bledsoe # (Auto) 1200 H Eos # (Auto) 0 Baso # (Auto) 0 PT 12.7 H INR 1.1 Sodium 136 L 138 Potassium 4.0 4.1 Chloride 103 103 Carbon Dioxide 24 24 BUN 15 15 Creatinine 0.88 0.92 Estimated GFR > 60 > 60 BUN/Creatinine Ratio 17.0 16.3 Glucose 105 H 118 H POC Whole Bld Glucose 129 H Calcium 9.2 9.4 Total Bilirubin 0.9 AST 34 ALT 45 Alkaline Phosphatase 71 Total Protein 8.0 Albumin 4.5 Globulin 3.5 Albumin/Globulin Ratio 1.3 [facility] Medical History Tinnitus Plantar fasciitis, bilateral Hearing loss Foot pain Hypertension Social History household members: family, children and none Smoking Status: Current every day smoker alcohol intake: current Assessment & Plan Assessment & Plan narrative: 1. Hypertensive urgency, present on admission and slowly improving. 2. Ischemic stroke with left arm and leg weakness (R FILI evoloving), this has worsened over the last 24 hours. 3. Morbid obesity with BMI of 40.8 Plan: Continue current blood pressure medications and monitor blood pressure. Serial neurologic exam. Continue antiplatelet therapy. [facility] inpatient rehab might be able to take the patient over the weekend if they still deemed him a reasonable candidate. Time-Based Coding :: [TOTAL MINUTES] spent with patient and on the chart (including review of chart, obtaining history, exam, reviewing outside data, placing orders, documenting exam and treatment plan, and counseling patient) on [DATE]. Quality VTE Deep Vein Thrombosis/Pulmonary Embolism Present on Admission: No
--- NOTE | 2025-04-11 14:59 | CM.DPNOTE ---
DCP Cont According to provider, patient's stroke worsened this morning confirmed by imaging, with worsened neuro symptoms/UE deficits. Updated clinical sent to Arslan at [facility]. Arslan available for coordination over the weekend. [facility] still willing to accept patient as of now, pending insurance auth. JOHNATHON team following clinical course closely. ADRIAN
--- NOTE | 2025-04-11 16:05 | PT.IPTN ---
Current Diagnoses Cerebral infarction, unspecified (04/08/25) Physical Therapy Treatment Note M2 PT-IP Current Condition Start: 04/08/25 10:17 Freq: NEEDED Status: Active Protocol: Document 04/08/25 08:56 MB (Rec: 04/08/25 10:36 MB Desktop) Physical Therapy Current Condition Current Condition Evaluation Date 04/08/25 Treatment Diagnosis R nolan radiata subacute ischemia, LLE weakness M3 PT-IP Subjective Start: 04/08/25 10:17 Freq: NEEDED Status: Active Protocol: Document 04/11/25 16:05 AB (Rec: 04/11/25 17:26 AB [id number]) Subjective Physical Therapy Visit Type Type Treatment Note Visit Start Time 16:05 Visit Stop Time 16:50 Number of WEB CONTENT EDITOR Visits 0 Physical Therapy Visit Comments Patient Comments agreeable to do PT M4 PT-IP Mobility and Gait Start: 04/08/25 10:17 Freq: NEEDED Status: Active Protocol: Document 04/11/25 16:05 AB (Rec: 04/11/25 17:26 AB [id number]) PT-Bed Mobility Assessment Rolling Type of Rolling Bilateral Level of Assist Minimal Assistance,Maximal Assistance,2 Person Assistance Scooting Scooting Up and Down Maximum Assistance in Bed PT-Transfer Assessment Comments Mobility Comments pt in bed and agreeable do to PT. Spoke with hospitalist and informed that pt has permissive BP up to 180 systolic and 100 diastolic. BP R arm: 192/78 Rechecked on L arm: 189/55. pt needing to be repositioned in bed and assisted. pt completed side rolling to the L min A with use of R arm and bed rail to assist but required max A x 2 for rolling to the R. pt also use trapeze to assist. pt continues to have LLE extensor synergy and needed assist for hip/knee flexion to assist with bed mobility and positioning. pt able to bridge requiring max A x 2. PT assisted with stabilizing LLE in flexion to be able to push with LLE. pt with asymmetric bridging with tendency of body to roll to the L during bridging due to L sided weakness. BP rechecked: 190/84. pt rested . pt needing more repositioning. educated pt on techniques to correct and be able to stabilize pelvic/ trunk better. pt completed several side rolling and bridging in bed for proper bed positioning. BP rechecked: 178/85. call light and table placed next to pt. nurse aware of BP. M5 PT-IP Objective Assessments Start: 04/08/25 10:17 Freq: NEEDED Status: Active Protocol: Document 04/08/25 08:56 MB (Rec: 04/08/25 10:36 MB Desktop) Orientation Orientation/Cognition Level of Alertness Alert Orientation Name,Age,Birthday,Place,Situation Language Function No Deficits Noted Ability Safety Awareness Decreased Safety Awareness Memory Description No Deficits Noted Gross Range of Motion Upper Extremity ROM Impairments Defer to OT, pt does seem sluggish with motor awareness of LUE and use with moving hand on and off walker and for bed mobility Lower Extremity ROM Assessment Left Impaired Impairments See comments above, testing is challenging to rate today given tone presentation and no active movement with tone Strength Lower Extremity Strength Assessment Left Impaired Comments Strength Comments LLE ankle and knee without AROM and resistance to attempted PROM left knee flexion today with buckle with standing WB Coordination Assessment Gross Coordination Gross Coordination Impaired Sensation Assessment Sensation Gross Sensation WNL Comments Sensation Comments Pt does have delayed processing with sensory testing Muscle Tone Muscle Tone WNL No Comments Muscle Tone Comments PF tone left ankle and extensor tone left knee today, strong clonus to passive DF left ankle today M6 PT-IP Treatment Start: 04/08/25 10:17 Freq: NEEDED Status: Active Protocol: Document 04/11/25 16:05 AB (Rec: 04/11/25 17:26 AB [id number]) Physical Therapy Treatment Education Education Provided Safety M7 PT-IP Assessment and Plan Start: 04/08/25 10:17 Freq: NEEDED Status: Active Protocol: Document 04/11/25 16:05 AB (Rec: 04/11/25 17:26 AB [id number]) PT Summary Assessment and Plan Potential Rehabilitation Fair Potential Summary Impairments Pain,ROM,Strength,Balance,Coordination,Sensation,Tone, Cognition,Bed Mobility,Transfers,Gait,Activity Tolerance Progress Towards Slow Progress due to Medical Issues,Slow Progress - Goals Other Assessment Summary pt informed PT/OT that he woke up this morning and not able to move LUE. pt was able to move LUE yesterday. repeated imaging suggesting evolvement of CVA. pt continues to have increase BP: 192/78. per hospitalist : permissive BP of up to 180 of systolic and 100 diastolic. PT intervention limited due to high BP and only able to conduct bed mobility due to pt's proper bed positioning needs. will continue to assess progress. Recommending acute rehab vs SNF rehab. Goals Bed Mobility Goal Independent Transfer Goal Standby Assistance,Front Wheeled Walker Gait Goal Standby Assistance,Front Wheel Walker Gait Distance 50 Other Goals Pt will perform WNLs on standardized balance test to decrease fall risk. Pt will ascend and descend flight of steps with rail and LRAD and mod I to allow safe home entrance. Days to Meet Goals 10 Frequency of Treatment Frequency Of Once a Day Treatment Treatment Plan Physical Therapy Bed Mobility Training,Transfer Training,Gait Training, Treatment Plan Therapeutic Exercise,Balance Retraining,Discharge Planning,Hot or Cold Pack,Neuromuscular Re-ed, Coordination Retraining,Manual Therapy Recommendations To Nursing Amount of Assist Mechanical Lift Needed Discharge Recommendations PT Discharge SNF Rehab,Acute Rehab Recommendations Transportation Needs Wheelchair/Cabulance,Stretcher/Ambulance at Discharge - PT assist 2
--- NOTE | 2025-04-11 18:13 | OT.IP.TRT ---
Current Diagnoses Cerebral infarction, unspecified (04/08/25) Occupational Therapy Treatment Note M2 OT-IP Current Condition Start: 04/08/25 11:29 Freq: Status: Active Protocol: Document 04/08/25 11:30 [facility] (Rec: 04/08/25 11:54 [facility] Desktop) Occupational Therapy Current Condition Current Condition Evaluation Date 04/08/25 Treatment Diagnosis CVA Diagnosis Onset Date 04/08/25 M3 OT- IP Subjective and Pain Start: 04/08/25 11:29 Freq: Status: Active Protocol: Document 04/11/25 17:57 [facility] (Rec: 04/11/25 18:12 [facility] Desktop) OT- Subjective Occupational Therapy Visit Type Type Treatment Note Visit Start Time 16:05 Visit Stop Time 16:50 Occupational Therapy Visit Comments Patient Comments Pt agreed to do reposition in bed. Patient/Caregiver To get better. Goals OT Pain Assessment Pain When Pain Assessed At Rest Pain Present Pain Present Pain Reported Location neck Pain Behaviors Facial Grimacing,Holding Area M7 OT- IP Mobility and Balance Start: 04/08/25 11:29 Freq: Status: Active Protocol: Document 04/11/25 17:57 [facility] (Rec: 04/11/25 18:12 [facility] Desktop) OT- Bed Mobility Assessment Rolling Level of Assistance Maximum Assistance,1 Person Assistance,2 Person Assistance OT-Transfer Assessment Comments Mobility Comments Pt able to roll with MAX A 1-2 with rail and able to assist to reposition in the bed. Able to assist pt with LUE and LLE. Noted increased tone in LUE. 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 Not able to lift LUE actively and has tone. After stretching internal rotator able to more his hand better in finger extension and supination . BP from 191/98 to 178/85. LUE shoulder 0/1, elbow 2/5, hand 3-/5 OT-Muscle Tone Assessment Comments Muscle Tone Comments Extensor tone with LLE. M9 OT- IP Assessment and Plan Start: 04/08/25 11:29 Freq: Status: Active Protocol: Document 04/11/25 17:57 [facility] (Rec: 04/11/25 18:12 [facility] Desktop) OT Summary Assessment and Plan Potential Rehabilitation Excellent Potential Analytic Complexity Moderate at Evaluation Summary OT Impairments Pain,Range of Motion,Strength,Balance,Coordination, Sensation,Functional Cognition,Functional Mobility,Self -Feeding,Grooming,Dressing,Toileting,Bathing,Toilet Transfers Progress Towards Slow Progress due to Medical Issues Goals Assessment Summary Pt having flexor tone with LUE and just able to reposition pt as BP running high. Pt hopeful to go to acute rehab when medically stable. Goals Self-Feeding Goal Independent Grooming Goal Independent Dressing Goal Independent Toileting Goal Independent Bathing Goal Independent Toilet Transfer Goal Independent Shower Transfer Goal Independent Days to Meet Goals 30 Frequency of Treatment Frequency Of Once a Day Treatment Treatment Plan OT Treatment Plan ADL Training,Functional Cognition Training,Functional Mobility,Neuromuscular Re-education,Therapeutic Exercises,Patient/Family Education,Discharge Planning Discharge Recommendations OT Discharge Acute Rehab Recommendations Transportation Needs Wheelchair/Cabulance at Discharge
--- NOTE | 2025-04-11 19:01 | DI.CT.S_ITS ---
PROCEDURE: CT ANGIO CHEST PE PROTOCOL INDICATIONS: tachycardia TECHNIQUE: After the administration of intravenous contrast, 2 mm thick sections acquired from the pulmonary apices to the posterior costophrenic angles. 3-dimensional maximum intensity projection (MIP) coronal and sagittal reformats were then acquired through the thorax. For radiation dose reduction, the following was used: automated exposure control, adjustment of mA and/or kV according to patient size. COMPARISON: None. FINDINGS: Image quality: Nondiagnostic. Pulmonary arteries: Pulmonary arteries are not well opacified and lobar or segmental emboli cannot be excluded. No saddle embolus or main pulmonary artery embolus. Lower Neck: No enlarged lymph nodes. Thyroid: Normal CT appearance. Axillae: No enlarged lymph nodes. Chest Wall: Unremarkable. Bones: Unremarkable. Lungs and Pleura: Central and peripheral airways are normal without bronchial wall thickening or bronchiectasis. No nodule, mass, ground-glass opacity, or consolidation. No pleural effusion. Heart: Heart is mildly enlarged and there is hypertrophy of the left ventricular myocardium. No pericardial effusion. Thoracic Vessels: No aortic aneurysm. Mediastinum and Earlene: No enlarged lymph nodes. Esophagus: No wall thickening. No hiatal hernia. Upper Abdomen: Visualized upper abdomen solid organs and bowel loops appear normal. IMPRESSION: Nondiagnostic study for pulmonary embolus. Recommend repeat with manual bolus timing if the patient has normal creatinine, or V/Q scan. No acute pulmonary parenchymal process. Mild cardiomegaly with possible left ventricular hypertrophy. Dictated by: Maria Eugenia Cohen M.D. on 04/11/2025 at 19:57 Approved by: Maria Eugenia Cohen M.D. on 04/11/2025 at 20:01
[2025-04-11] MEDS: SODIUM CHLORIDE 0.9% 1,000 ML 1000 ML IV (20:16)
[2025-04-11] MEDS: ATORVASTATIN 20 MG TABLET 40 MG PO (20:17)
[2025-04-11] MEDS: NICARDIPINE 25 MG in SODIUM CHLORIDE 0.9% 240 ML 125 MG IV (20:57)
[2025-04-11] MEDS: FLUTICASONE 120 SPRAY/16 GM SPRAY.SUSP NASAL (22:34)
[2025-04-11] MEDS: ZOLPIDEM 5 MG TABLET PO (23:26)
[2025-04-12] VITALS (104 sets, daily range): BP systolic 135–186; BP diastolic 65–99; PULSE 69–115; RESP 0–40; TEMP 36.1–37.1; O2SAT 91–100
[2025-04-12] MEDS: NICARDIPINE 25 MG in SODIUM CHLORIDE 0.9% 240 ML 50 MG IV (03:02)
[2025-04-12] MEDS: ASPIRIN EC 81 MG TABLET PO (08:29)
[2025-04-12] MEDS: SPIRONOLACTONE 25 MG TABLET PO (08:29)
[2025-04-12] MEDS: AMLODIPINE 5 MG TABLET 10 MG PO (08:29)
[2025-04-12] MEDS: ENOXAPARIN 40 MG/0.4 ML SYRINGE SUBCUT ×2 (08:29→21:34)
--- NOTE | 2025-04-12 08:29 | PM.PN.1 ---
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. He feels like his speech is improving although it is still somewhat halting. His left shoulder and left elbow continues to be nonfunctional but he has a pretty good special education associate on that side. The nicardipine drip has been titrated down to 2.5 milligrams/hour but overnight required a higher dose. He says he gained about 40 lb recently. He had not been on blood pressure medicines. His father has a history of high blood pressure but there is no family history of stroke. His carvedilol dose will be increased today and triamterene will be added. The white blood count yesterday was 13.7 and the BNP was normal. Exam Vital Signs (past 8 hours): - 04/12/25 00:30 04/12/25 00:30 04/12/25 00:45 Temperature Pulse Rate 101 H 98 H Respiratory Rate 26 H 24 Blood Pressure 162/78 H Pulse Oximetry 95 97 Oxygen Delivery Method Oxygen Flow Rate 04/12/25 00:45 04/12/25 01:00 04/12/25 01:00 Temperature Pulse Rate 93 H Respiratory Rate 33 H Blood Pressure 140/67 141/67 H Pulse Oximetry 97 Oxygen Delivery Method Oxygen Flow Rate 04/12/25 01:15 04/12/25 01:15 04/12/25 01:30 Temperature Pulse Rate 99 H 94 H Respiratory Rate 20 25 H Blood Pressure 152/72 H Pulse Oximetry 97 98 Oxygen Delivery Method Oxygen Flow Rate 04/12/25 01:30 04/12/25 01:45 04/12/25 01:45 Temperature Pulse Rate 96 H Respiratory Rate 31 H Blood Pressure 141/72 H 145/69 H Pulse Oximetry 98 Oxygen Delivery Method Oxygen Flow Rate 04/12/25 02:00 04/12/25 02:00 04/12/25 02:15 Temperature Pulse Rate 93 H 115 H Respiratory Rate 40 H 23 Blood Pressure 148/70 H Pulse Oximetry 98 98 Oxygen Delivery Method Oxygen Flow Rate 04/12/25 02:16 04/12/25 02:16 04/12/25 02:30 Temperature Pulse Rate 113 H 104 H Respiratory Rate 27 H 25 H Blood Pressure 180/99 H Pulse Oximetry 98 98 Oxygen Delivery Method Oxygen Flow Rate 04/12/25 02:30 04/12/25 02:45 04/12/25 02:46 Temperature Pulse Rate 104 H 104 H Respiratory Rate 23 26 H Blood Pressure 154/78 H Pulse Oximetry 97 99 Oxygen Delivery Method Oxygen Flow Rate 04/12/25 02:46 04/12/25 03:00 04/12/25 03:00 Temperature Pulse Rate 89 Respiratory Rate 29 H Blood Pressure 176/84 H 149/71 H Pulse Oximetry 97 Oxygen Delivery Method Oxygen Flow Rate 04/12/25 03:15 04/12/25 03:15 04/12/25 03:30 Temperature Pulse Rate 87 88 Respiratory Rate 35 H 16 Blood Pressure 156/80 H Pulse Oximetry 93 94 Oxygen Delivery Method Oxygen Flow Rate 04/12/25 03:30 04/12/25 03:45 04/12/25 03:45 Temperature Pulse Rate 89 Respiratory Rate 25 H Blood Pressure 153/70 H 141/70 H Pulse Oximetry 96 Oxygen Delivery Method Oxygen Flow Rate 04/12/25 04:00 04/12/25 04:00 04/12/25 04:00 Temperature Pulse Rate 99 H Respiratory Rate 25 H Blood Pressure 148/73 H Pulse Oximetry 96 Oxygen Delivery Method Nasal Cannula Oxygen Flow Rate 2 04/12/25 04:15 04/12/25 04:15 04/12/25 04:30 Temperature Pulse Rate 104 H Respiratory Rate 29 H Blood Pressure 158/80 H 169/81 H Pulse Oximetry 98 Oxygen Delivery Method Oxygen Flow Rate 04/12/25 04:30 04/12/25 04:45 04/12/25 04:45 Temperature Pulse Rate 92 H 98 H Respiratory Rate 17 17 Blood Pressure 156/82 H Pulse Oximetry 96 95 Oxygen Delivery Method Oxygen Flow Rate 04/12/25 05:00 04/12/25 05:00 04/12/25 05:15 Temperature Pulse Rate 88 93 H Respiratory Rate 24 28 H Blood Pressure 149/72 H Pulse Oximetry 95 96 Oxygen Delivery Method Oxygen Flow Rate 04/12/25 05:15 04/12/25 05:30 04/12/25 05:30 Temperature Pulse Rate 92 H Respiratory Rate 19 Blood Pressure 157/77 H 159/79 H Pulse Oximetry 97 Oxygen Delivery Method Oxygen Flow Rate 04/12/25 05:45 04/12/25 05:45 04/12/25 06:00 Temperature Pulse Rate 103 H 89 Respiratory Rate 33 H 24 Blood Pressure 167/87 H Pulse Oximetry 98 94 Oxygen Delivery Method Oxygen Flow Rate 04/12/25 06:00 04/12/25 06:15 04/12/25 06:15 Temperature Pulse Rate 94 H Respiratory Rate 20 Blood Pressure 161/83 H 162/85 H Pulse Oximetry 96 Oxygen Delivery Method Oxygen Flow Rate 04/12/25 06:30 04/12/25 06:30 04/12/25 06:45 Temperature 98.8 F Pulse Rate 100 H 93 H Respiratory Rate 28 H 26 H Blood Pressure 164/87 H Pulse Oximetry 99 99 Oxygen Delivery Method Oxygen Flow Rate 04/12/25 06:45 Temperature Pulse Rate Respiratory Rate Blood Pressure 161/82 H Pulse Oximetry Oxygen Delivery Method Oxygen Flow Rate Oxygen Delivery Method Nasal Cannula Oxygen Flow Rate 2 Narrative Exam Narrative: Alert and oriented x3. No apparent distress. Heart is regular rate and rhythm without murmur. Lungs are clear to auscultation bilaterally. Extremities have no ankle edema. Right side motor function is 5/5. Left side motor function is 4/5 left lower extremity, 3/5 left special education associate strength, 0/5 left shoulder and left elbow movement. His speech is somewhat halting. Babinski's are upgoing on the left and downgoing on the right. Objective Labs 04/11/25 06:58 04/11/25 06:58 [facility] Medical History Tinnitus Plantar fasciitis, bilateral Hearing loss Foot pain Hypertension Social History household members: family, children and none Smoking Status: Current every day smoker alcohol intake: current Assessment & Plan Assessment & Plan narrative: 1. Hypertensive urgency, present on admission and slowly improving. Still requiring IV nicardipine. 2. Ischemic stroke with left arm and leg weakness (R FILI evolving), this has stabilized over the last 24 hours. 3. Morbid obesity with BMI of 40.8 Plan: Continue current blood pressure medications, add triamterene, increase carvedilol dose, titrate off nicardipine and monitor blood pressure. Serial neurologic exam. Continue antiplatelet therapy. Aspirin, clopidogrel and atorvastatin. [facility] rehab might be able to take the patient over the weekend if they still deemed him a reasonable candidate. Time-Based Coding :: [TOTAL MINUTES] spent with patient and on the chart (including review of chart, obtaining history, exam, reviewing outside data, placing orders, documenting exam and treatment plan, and counseling patient) on [DATE]. Quality VTE Deep Vein Thrombosis/Pulmonary Embolism Present on Admission: No
[2025-04-12] MEDS: CLOPIDOGREL 75 MG TABLET PO (08:30)
[2025-04-12] MEDS: SODIUM CHLORIDE 0.9% FLUSH 10 ML IV ×2 (08:31→21:35)
[2025-04-12] MEDS: NICARDIPINE 25 MG in SODIUM CHLORIDE 0.9% 240 ML IV (10:14)
--- NOTE | 2025-04-12 10:18 | PT-IP ANOTE ---
Pt continues to high BP and HR and still on nicardipine drip per nurse. per hospitalist during rounds, ok to hold PT and will look at medications.
[2025-04-12] MEDS: TRIAMTERENE/HCTZ 37.5/25 CAPSULE 1 CAP PO (12:41)
--- NOTE | 2025-04-12 15:28 | CM.DPNOTE ---
DCP Cont Patient continues to have high BP on drip. BP cannot be managed off drip. Therapies on hold. Updated [place] [facility] [place] JW
--- NOTE | 2025-04-12 15:30 | PT.IPTN ---
Current Diagnoses Cerebral infarction, unspecified (04/08/25) Physical Therapy Treatment Note M2 PT-IP Current Condition Start: 04/08/25 10:17 Freq: NEEDED Status: Active Protocol: Document 04/08/25 08:56 MB (Rec: 04/08/25 10:36 MB Desktop) Physical Therapy Current Condition Current Condition Evaluation Date 04/08/25 Treatment Diagnosis R nolan radiata subacute ischemia, LLE weakness M3 PT-IP Subjective Start: 04/08/25 10:17 Freq: NEEDED Status: Active Protocol: Document 04/12/25 16:15 AB (Rec: 04/12/25 18:18 AB Desktop) Subjective Physical Therapy Visit Type Type Treatment Note Visit Start Time 16:15 Visit Stop Time 17:20 Notes Nurse informed PT this afternoon that pt is off nicardipine drip and has better BP and HR. Number of GENERATION ENGINEERING TECHNOLOGIST Visits 0 Physical Therapy Visit Comments Patient Comments agreeable to do PT M4 PT-IP Mobility and Gait Start: 04/08/25 10:17 Freq: NEEDED Status: Active Protocol: Document 04/12/25 16:15 AB (Rec: 04/12/25 18:18 AB Desktop) PT-Bed Mobility Assessment Supine to Sit Supine to Sit Maximum Assistance,2 Person Assistance,Head of Bed Elevated,Bedrails Scooting Scooting to Edge of Maximum Assistance Bed PT-Transfer Assessment Transfers Transfer Destination Chair Transfer Technique Mechanical Lift Transfer Ability Level of Assist Total Assistance,2 Person Assistance,Use of Upper Extremities Comments Mobility Comments pt in bed and agreed to do PT. BP checked: 135/68 IN: 90. completed LLE PROM/AAROM requiring inhibition techniques to decrease LLE extensor synergy. supine LE stabilization conducted with LLE in hook lying position and pt to maintain and LLE in said position ( midline and prevent LLE to fall into abduction). cued for glute and adductor muscle activation. pt requiring max A and max cues. able to maintain LLE position for ~ 3-4 sec. pt completed x 6-7 reps. BP checked: 143/ 68 IN: 94 pt completed supine to sit max A x 2 and max cues. HOB elevated. pt required max A for sitting balance. max A for scooting to EOB. (+) posterior LOB in sitting requiring max A x 2 for repositioning. NAC in room to assist. Assisted pt to chair using mechanical lift. required max A x 2 for moving LE for sling positioning. positioned pt on the chair. call light and table placed within reach. informed NAC and nurse that pt will be needing a chair alarm for safety due to decrease trunk control/sitting balance. M5 PT-IP Objective Assessments Start: 04/08/25 10:17 Freq: NEEDED Status: Active Protocol: Document 04/08/25 08:56 MB (Rec: 04/08/25 10:36 MB Desktop) Orientation Orientation/Cognition Level of Alertness Alert Orientation Name,Age,Birthday,Place,Situation Language Function No Deficits Noted Ability Safety Awareness Decreased Safety Awareness Memory Description No Deficits Noted Gross Range of Motion Upper Extremity ROM Impairments Defer to OT, pt does seem sluggish with motor awareness of LUE and use with moving hand on and off walker and for bed mobility Lower Extremity ROM Assessment Left Impaired Impairments See comments above, testing is challenging to rate today given tone presentation and no active movement with tone Strength Lower Extremity Strength Assessment Left Impaired Comments Strength Comments LLE ankle and knee without AROM and resistance to attempted PROM left knee flexion today with buckle with standing WB Coordination Assessment Gross Coordination Gross Coordination Impaired Sensation Assessment Sensation Gross Sensation WNL Comments Sensation Comments Pt does have delayed processing with sensory testing Muscle Tone Muscle Tone WNL No Comments Muscle Tone Comments PF tone left ankle and extensor tone left knee today, strong clonus to passive DF left ankle today M6 PT-IP Treatment Start: 04/08/25 10:17 Freq: NEEDED Status: Active Protocol: Document 04/12/25 16:15 AB (Rec: 04/12/25 18:18 AB Desktop) Physical Therapy Treatment Education Education Provided Safety M7 PT-IP Assessment and Plan Start: 04/08/25 10:17 Freq: NEEDED Status: Active Protocol: Document 04/12/25 16:15 AB (Rec: 04/12/25 18:18 AB Desktop) PT Summary Assessment and Plan Potential Rehabilitation Fair Potential Summary Impairments Pain,ROM,Strength,Balance,Coordination,Sensation,Tone, Cognition,Bed Mobility,Transfers,Gait,Activity Tolerance Progress Towards Slow Progress due to Medical Issues Goals Assessment Summary pt with more stable BP and HR this afternoon and is off nicardipine drip. pt continues to require max A x 2 for bed mobility and will require mechanical lift for transfers at this time. pt will benefit from acute rehab vs SNF to improve overall strength and mobility. Goals Bed Mobility Goal Independent,Moderate Assistance Transfer Goal Moderate Assistance,Front Wheeled Walker Gait Goal Moderate Assistance,Front Wheel Walker Gait Distance 50 Days to Meet Goals 10 Frequency of Treatment Frequency Of Once a Day Treatment Treatment Plan Physical Therapy Bed Mobility Training,Transfer Training,Gait Training, Treatment Plan Therapeutic Exercise,Balance Retraining,Discharge Planning,Hot or Cold Pack,Neuromuscular Re-ed, Coordination Retraining,Manual Therapy Recommendations To Nursing Amount of Assist Mechanical Lift Needed Discharge Recommendations PT Discharge SNF Rehab,Acute Rehab Recommendations Transportation Needs Wheelchair/Cabulance,Stretcher/Ambulance at Discharge - PT assist 2
[2025-04-12] MEDS: ACETAMINOPHEN 325 MG TABLET 650 MG PO (21:33)
[2025-04-12] MEDS: ATORVASTATIN 20 MG TABLET 40 MG PO (21:34)
[2025-04-13] VITALS (13 sets, daily range): BP systolic 146–164; BP diastolic 67–83; PULSE 79–93; RESP 16–25; TEMP 36.2–37.3; O2SAT 96–99
--- NOTE | 2025-04-13 07:56 | P.PN_ITS ---
Subjective Subjective Date Patient Seen: 04/13/25 Exam Vital Signs (past 8 hours): - 04/13/25 00:00 04/13/25 04:00 04/13/25 04:45 Pulse Rate 85 Respiratory Rate 20 Blood Pressure 158/83 H Pulse Oximetry 99 98 96 Oxygen Delivery Method Room Air Room Air Oxygen Delivery Method Room Air Oxygen Flow Rate 0 Objective Labs 04/11/25 06:58 04/11/25 06:58 [facility] Medical History Tinnitus Plantar fasciitis, bilateral Hearing loss Foot pain Hypertension Social History household members: family, children and none Smoking Status: Current every day smoker alcohol intake: current Assessment & Plan Assessment & Plan narrative: 1. Hypertensive urgency, present on admission and slowly improving. Still requiring IV nicardipine. 2. Ischemic stroke with left arm and leg weakness (R FILI evolving), this has stabilized over the last 24 hours. 3. Morbid obesity with BMI of 40.8 Plan: Continue current blood pressure medications, add triamterene, increase carvedilol dose, titrate off nicardipine and monitor blood pressure. Serial neurologic exam. Continue antiplatelet therapy. Aspirin, clopidogrel and atorvastatin. [facility] inpatient rehab might be able to take the patient over the weekend if they still deemed him a reasonable candidate. Time-Based Coding :: [TOTAL MINUTES] spent with patient and on the chart (including review of chart, obtaining history, exam, reviewing outside data, placing orders, documenting exam and treatment plan, and counseling patient) on [DATE]. Quality VTE Deep Vein Thrombosis/Pulmonary Embolism Present on Admission: No
[2025-04-13] MEDS: ENOXAPARIN 40 MG/0.4 ML SYRINGE SUBCUT ×2 (08:28→20:34)
[2025-04-13] MEDS: CLOPIDOGREL 75 MG TABLET PO (08:28)
[2025-04-13] MEDS: ASPIRIN EC 81 MG TABLET PO (08:28)
[2025-04-13] MEDS: AMLODIPINE 5 MG TABLET 10 MG PO (08:28)
[2025-04-13] MEDS: SPIRONOLACTONE 25 MG TABLET PO (08:28)
[2025-04-13] MEDS: SODIUM CHLORIDE 0.9% FLUSH 10 ML IV ×2 (08:29→20:34)
[2025-04-13] MEDS: TRIAMTERENE/HCTZ 37.5/25 CAPSULE 1 CAP PO (08:29)
--- NOTE | 2025-04-13 11:14 | PT.IPTN ---
Current Diagnoses Cerebral infarction, unspecified (04/08/25) Physical Therapy Treatment Note M2 PT-IP Current Condition Start: 04/08/25 10:17 Freq: NEEDED Status: Active Protocol: Document 04/08/25 08:56 MB (Rec: 04/08/25 10:36 MB Desktop) Physical Therapy Current Condition Current Condition Evaluation Date 04/08/25 Treatment Diagnosis R nolan radiata subacute ischemia, LLE weakness M3 PT-IP Subjective Start: 04/08/25 10:17 Freq: NEEDED Status: Active Protocol: Document 04/13/25 10:21 MB (Rec: 04/13/25 11:14 MB Desktop) Subjective Physical Therapy Visit Type Type Treatment Note Visit Start Time 10:21 Visit Stop Time 10:59 Number of BRIDGE TENDER Visits 0 Physical Therapy Visit Comments Patient Comments Pt is agreeable to PT, is up in the chair upon arrival. Therapy Pain Assessment Pain When Pain Assessed At Rest Pain Present Pain Present Pain Reported Location neck Scale Used Not rated and improves with cervical exercises M4 PT-IP Mobility and Gait Start: 04/08/25 10:17 Freq: NEEDED Status: Active Protocol: Document 04/13/25 10:21 MB (Rec: 04/13/25 11:14 MB Desktop) PT-Transfer Assessment Comments Mobility Comments BP and HR in RUE in sitting before treatment: 158/76, 92 and after treatment, 151/67, 88. BP and HR improve with activity today Therapeutic exercise and neuromuscular re-ed activities in sitting: Trunk engagement and core work with cues for pt to lift right leg and cross it over left foot to doff IVCC leg compression and to don sock and pt maintains sitting balance with cues and requires mod A to don sock and PT pulls it over foot. Pt is able to lean cross body to the left in sitting to unfasten left IVCC bootie and PT fully removes. Static and dynamic sitting balance with cues and PT maintaining WB pressure into left hip IR and adduction with pt's left foot on the floor for WB and tone does decrease with time in WB: right shoulder rolls and no active movement in left scapula or shoulder, 10 reps cervical flexion and extension, SB and rotation with some decreased trunk and cervical control, 10 reps mini left hand squeeze with WB through left forearm on lap, leaning forward with elbows on thighs for WB through shoulders. Dependent assistance to manage left arm and left leg for mini STS in Patsy II lift: first, mini squat position and then 75% upright position until left LE has extension buckle and then positioned with PT support for WB and pt tolerates 1'. M5 PT-IP Objective Assessments Start: 04/08/25 10:17 Freq: NEEDED Status: Active Protocol: Document 04/08/25 08:56 MB (Rec: 04/08/25 10:36 MB Desktop) Orientation Orientation/Cognition Level of Alertness Alert Orientation Name,Age,Birthday,Place,Situation Language Function No Deficits Noted Ability Safety Awareness Decreased Safety Awareness Memory Description No Deficits Noted Gross Range of Motion Upper Extremity ROM Impairments Defer to OT, pt does seem sluggish with motor awareness of LUE and use with moving hand on and off walker and for bed mobility Lower Extremity ROM Assessment Left Impaired Impairments See comments above, testing is challenging to rate today given tone presentation and no active movement with tone Strength Lower Extremity Strength Assessment Left Impaired Comments Strength Comments LLE ankle and knee without AROM and resistance to attempted PROM left knee flexion today with buckle with standing WB Coordination Assessment Gross Coordination Gross Coordination Impaired Sensation Assessment Sensation Gross Sensation WNL Comments Sensation Comments Pt does have delayed processing with sensory testing Muscle Tone Muscle Tone WNL No Comments Muscle Tone Comments PF tone left ankle and extensor tone left knee today, strong clonus to passive DF left ankle today M6 PT-IP Treatment Start: 04/08/25 10:17 Freq: NEEDED Status: Active Protocol: Document 04/13/25 10:21 MB (Rec: 04/13/25 11:14 MB Desktop) Physical Therapy Treatment Other Treatments Other Treatment See exercises performed today and pt also attempts B Performed glute squeezes in sitting with cues for postural support, no active glute contraction in left today, does make gains with dynamic and sitting balance posture M7 PT-IP Assessment and Plan Start: 04/08/25 10:17 Freq: NEEDED Status: Active Protocol: Document 04/13/25 10:21 MB (Rec: 04/13/25 11:14 MB Desktop) PT Summary Assessment and Plan Potential Rehabilitation Good Potential Status of Condition Evolving at Evaluation Summary Impairments Pain,ROM,Strength,Balance,Coordination,Sensation,Tone, Cognition,Bed Mobility,Transfers,Gait,Activity Tolerance Progress Towards Progressing Toward Goals Goals Assessment Summary Jahneil's BP and HR improve after ther-ex and neuro re- ed exercises today. Performed trunk and core work in sitting and then progressed to partial standing with Patsy II today. His tone in LLE responds well to WB activities. Pt has some delay processing. He is an excellent candidate for acute rehab. Goals Bed Mobility Goal Contact Guard Assistance Transfer Goal Contact Guard Assistance,Front Wheeled Walker Gait Goal Contact Guard Assistance,Front Wheel Walker Gait Distance 50 Other Goals Pt will maintain static and dynamic sitting balance for at least 10' for ADLs and exercises with I. Pt will maintain static and dynamic standing balance with LRAD and mod I. Days to Meet Goals 10 Frequency of Treatment Frequency Of Once a Day Treatment Other frequency 1-2x/day Treatment Plan Physical Therapy Bed Mobility Training,Transfer Training,Gait Training, Treatment Plan Therapeutic Exercise,Balance Retraining,Discharge Planning,Hot or Cold Pack,Neuromuscular Re-ed, Coordination Retraining,Manual Therapy Recommendations To Nursing Amount of Assist Mechanical Lift Needed Discharge Recommendations PT Discharge Acute Rehab Recommendations Transportation Needs Wheelchair/Cabulance,Stretcher/Ambulance at Discharge - PT assist x2
[2025-04-13] MEDS: ACETAMINOPHEN 325 MG TABLET 650 MG PO ×2 (12:04→20:33)
--- NOTE | 2025-04-13 12:41 | CM.DPC ---
DCP note FARM HELPER reviewed EMR per provider, pt stable again on PO meds. could dc to INPT rehab once auth secured. FARM HELPER lvm with Arslan from [facility], , no response as of 1242. P: dc to [facility] once auth secured. CM Team will continue to follow closely for DCP coordination BLANCA Salmeron
[2025-04-13] MEDS: ATORVASTATIN 20 MG TABLET 40 MG PO (20:33)
[2025-04-13] MEDS: ZOLPIDEM 5 MG TABLET PO (22:03)
[2025-04-14] VITALS (12 sets, daily range): BP systolic 156–176; BP diastolic 65–90; PULSE 82–104; RESP 15–18; TEMP 36–36.1; O2SAT 97–99
[2025-04-14] MEDS: ASPIRIN EC 81 MG TABLET PO (08:22)
[2025-04-14] MEDS: SODIUM CHLORIDE 0.9% FLUSH 10 ML IV ×2 (08:22→21:06)
[2025-04-14] MEDS: SPIRONOLACTONE 25 MG TABLET PO (08:22)
[2025-04-14] MEDS: ENOXAPARIN 40 MG/0.4 ML SYRINGE SUBCUT ×2 (08:22→21:06)
[2025-04-14] MEDS: AMLODIPINE 5 MG TABLET 10 MG PO (08:23)
[2025-04-14] MEDS: TRIAMTERENE/HCTZ 37.5/25 CAPSULE 1 CAP PO (08:23)
[2025-04-14] MEDS: CLOPIDOGREL 75 MG TABLET PO (08:23)
--- NOTE | 2025-04-14 10:15 | PM.PN.1 ---
Subjective Subjective Interval history: S: Doing well today, blood pressure much better controlled. Mild headache last night. He can move his leg a little and a little bit. Exam Vital Signs (past 8 hours): - 04/14/25 04:00 04/14/25 08:00 04/14/25 08:00 Temperature Pulse Rate Respiratory Rate Blood Pressure Pulse Oximetry 97 99 Oxygen Delivery Method Room Air Room Air Room Air Oxygen Flow Rate 0 04/14/25 08:00 04/14/25 08:09 04/14/25 08:09 Temperature 96.8 F L Pulse Rate 93 H Respiratory Rate 15 Blood Pressure 167/83 H Pulse Oximetry 97 Oxygen Delivery Method Oxygen Flow Rate Oxygen Delivery Method Room Air Oxygen Flow Rate 0 Narrative Exam Narrative: NAD, alert and oriented. Fluent speech. Lungs are clear, normal rate and effort. Heart is regular, no murmur gallop or rub. Abdomen is soft, non distended. Extremities are free of edema. The left knee is very weak, but he can extend a bit at the knee and flex a bit at the hip. He can wiggle fingers 2 and 3 on the left hand. Objective Labs 04/11/25 06:58 04/11/25 06:58 [facility] Medical History Tinnitus Plantar fasciitis, bilateral Hearing loss Foot pain Hypertension Social History household members: family, children and none Smoking Status: Current every day smoker alcohol intake: current Assessment & Plan Assessment & Plan narrative: 1. Hypertensive urgency, present on admission and slowly improving. Blood pressure near goal range on oral medication, now off nicardipine. 2. Ischemic stroke with left arm and leg weakness (R FILI evolving), left arm and leg weakness continues to vary from day-to-day. 3. Morbid obesity with BMI of 40.8 PLAN: -continue current medical therapy. -inpatient rehab when they are able to accept. -no change to current oral blood pressure medications. Time-Based Coding :: [TOTAL MINUTES] spent with patient and on the chart (including review of chart, obtaining history, exam, reviewing outside data, placing orders, documenting exam and treatment plan, and counseling patient) on [DATE]. Quality VTE Deep Vein Thrombosis/Pulmonary Embolism Present on Admission: No
--- NOTE | 2025-04-14 12:35 | OT.IP.TRT ---
Current Diagnoses Cerebral infarction, unspecified (04/08/25) Occupational Therapy Treatment Note M2 OT-IP Current Condition Start: 04/08/25 11:29 Freq: Status: Active Protocol: Document 04/08/25 11:30 [facility] (Rec: 04/08/25 11:54 [facility] Desktop) Occupational Therapy Current Condition Current Condition Evaluation Date 04/08/25 Treatment Diagnosis CVA Diagnosis Onset Date 04/08/25 M3 OT- IP Subjective and Pain Start: 04/08/25 11:29 Freq: Status: Active Protocol: Document 04/14/25 12:15 [facility] (Rec: 04/14/25 12:[address] [facility] [facility] Desktop) OT- Subjective Occupational Therapy Visit Type Type Treatment Note Visit Start Time 11:20 Visit Stop Time 12:04 Notes While reclined in bed, with OT supporting proximally, pt performs fisting and unfisting his hand x10, thumb to finger tips (with vcs to continue) x10. With OT supporting at wrist, pt assists in performing elbow flexion/ext while OT performs tapping to facilate contraction x10 Occupational Therapy Visit Comments Patient Comments Pt reclined in bed with family present on entrance of OT. Pt agreeable to participating in therapy. Partial OT/PT co-tx due to pt's complexity Patient/Caregiver To get better. Goals OT Pain Assessment Pain When Pain Assessed At Rest Pain Present Pain Present Denied Pain Location Back Intensity 2 Scale Used Numeric (0 - 10) M4 OT- IP ADL's Start: 04/08/25 11:29 Freq: Status: Active Protocol: Document 04/09/25 11:36 [facility] (Rec: 04/09/25 13:10 [facility] Desktop) OT [id number] Comments OT Self-Feeding Pt states had no issues eating. Encouraged pt actively Comments use his left hand as at times pt is neglectful of his left arm. OT ADL-Grooming General Evaluation Grooming Ability Standby Assistance Comments OT Grooming Comments Pt able to use his right and left hand for grooming needs. OT ADL-Oral Care General Eval Oral Care Ability Independent Comments Oral Care Comments Pt able to do with increased time. Left hand weaker and having to use right hand more to open the mouthwash bottle. OT ADL-Dressing Comments OT Dressing Comments Not performed. OT ADL-Toileting Comments OT Toileting Not performed. Per nursing was able to transfer to with Comments FWW to BSC, however at this time best to have therapy assist or use of yogesh lift as pt has decreased control/weakness on his LLE. To try drop arm commode with pt next time. OT ADL-Bathing Comments OT Bathing Comments Not performed. M5 OT- IP IADL's Start: 04/08/25 11:29 Freq: Status: Active Protocol: Document 04/08/25 11:30 [facility] (Rec: 04/08/25 11:54 [facility] Desktop) OT-Instrumental Activities of Daily Living Home Safety Awareness Awareness of Need Good Awareness for Assistance at Home Home Safety Comments Pt states did not sleep at all but still feels that he is not at his baseline for thinking at this time as feels a little foggy. Money Management Money Management Pt needing increased time with calculations. Comments Meal Preparation Meal Preparation Pt will need assist. Comments Exploration Geologist Exploration Geologist Pt will need assist. Comments M6 OT- IP Functional Cognition Start: 04/08/25 11:29 Freq: Status: Active Protocol: Document 04/09/25 11:36 [facility] (Rec: 04/09/25 13:10 [facility] Desktop) Cognitive Factors Limiting Selfcare Function Cognitive Ability Level of Alertness Alert Patient Orientation Name,Age,Birthday,Month,Date,Year,Day of Week,Place, Situation Attention Span Capable of Focused Attention,Capable of Sustained Ability Attention Ability to Follow Able to Follow One Step Commands Commands Cognitive Comments Cognitive Assessment Pt able to follow command and having difficulty to Comments initiate his LLE movement, however after education and practice appears to have a little more control. OT- Vision and Hearing OT- Vision Assessment Vision Assessment Left neglect. Pt able to keep his eyes closed easier Comments today. M7 OT- IP Mobility and Balance Start: 04/08/25 11:29 Freq: Status: Active Protocol: Document 04/14/25 12:15 [facility] (Rec: 04/14/25 12:34 [facility] Desktop) OT- Bed Mobility Assessment Rolling Type of Rolling Roll to Left Level of Assistance Moderate Assistance,Maximum Assistance,1 Person Assistance,2 Person Assistance Supine to Sit Supine to Sit Assist Maximum Assistance,1 Person Assistance,2 Person Assistance Sit to Supine Sit to Supine Assist Maximum Assistance,1 Person Assistance,2 Person Assistance OT-Transfer Assessment Comments Mobility Comments Pt able to roll to the R with OT protecting L UE and PT assisting with L LE, MOD-MAX 1-2. While EOB, pt performs therapeutic exercise and neuromuscular re-ed activities in sitting: Trunk engagement and core work with cues for pt Static and dynamic sitting balance with cues and OT maintaining WB pressure into left ankle with pt's left foot on the small step for WB. WB onto R hand with OT provided tactile cues progressing to side leaning and WB through R elbow x 2 reps. PT behind pt for postural corrections and cues, pt performs with CGA. Pt returns to upright sitting and cued to perform shoulder rolls and no active movement in left scapula or shoulder, 10 reps cervical flexion and extension, 10 reps cervical rotation, 10 reps SROM shoulder flexion with CGA due to pt's neglect (pt let go of his L hand while initiating first rep), WB through left forearm on lap, leaning forward with elbows on thighs for WB through shoulders, 10 reps WB through L forearm on lap while reaching with R UE to L toe and then diagonally overhead to the R. Pt returns to supine with MAX x2. M8 OT- IP Objective Assessments Start: 04/08/25 11:29 Freq: Status: Active Protocol: Document 04/09/25 11:36 [facility] (Rec: 04/09/25 13:10 [facility] Desktop) OT Strength Upper Extremity Strength Assessment Left Impaired Shoulder 4-/5 Elbow 4 Forearm 4 Wrist 4 Hand 4- Comments Strength Comments Pt's UE improvement in strength. Pt needing to use his LUE as at time neglect use of it. Educated pt to actively keep track of his LUE. OT-Muscle Tone Assessment Comments Muscle Tone Comments Extensor tone with LLE. M9 OT- IP Assessment and Plan Start: 04/08/25 11:29 Freq: Status: Active Protocol: Document 04/14/25 12:15 [facility] (Rec: 04/14/25 12:34 [facility] Desktop) OT Summary Assessment and Plan Potential Rehabilitation Excellent Potential Analytic Complexity Moderate at Evaluation Summary OT Impairments Pain,Range of Motion,Strength,Balance,Coordination, Sensation,Functional Cognition,Functional Mobility,Self -Feeding,Grooming,Dressing,Toileting,Bathing,Toilet Transfers Progress Towards Slow Progress due to Medical Issues Goals Assessment Summary Pt MMT L shldr 05, elbow 2/5, wrist 2-5, hand 3-/5. Pt demonstrates L neglect, needing vc/tc to improve attention. Pt appears motivated and attempts all tasks asked of him. Pt tolerated EOB activity for at least 20 minutes with minimal signs of fatigue. Pt continues to benefit from inpatient rehab to make the maximum gains in his recovery toward his PLOF. Cont per established POC. Goals Self-Feeding Goal Independent Grooming Goal Independent Dressing Goal Independent Toileting Goal Independent Bathing Goal Independent Toilet Transfer Goal Independent Shower Transfer Goal Independent Days to Meet Goals 30 Frequency of Treatment Frequency Of Once a Day Treatment Treatment Plan OT Treatment Plan ADL Training,Functional Cognition Training,Functional Mobility,Neuromuscular Re-education,Therapeutic Exercises,Patient/Family Education,Discharge Planning Discharge Recommendations Transportation Needs Wheelchair/Cabulance at Discharge
--- NOTE | 2025-04-14 13:23 | DIET.CONS ---
Dietary Consultation Note Admission Date: 04/08/2025 03:21 Assessment: 29 y M admitted for acute CVA. Dietitian screened for LOS. EMR reviewed. 50-100% PO intakes, avg 85%. DFM reviewed. Ht: 175.26 cm Wt: 125.191 kg BMI: 40.7 UBW: 115 kg 12/2023 Last BM: 04/14/25 (04/14/25 09:39) MNA: 14 Vance Score: 18 Diet: 04/08/25 Breakfast Heart Healthy Diet Diet Modifications: Nutrition Percent Meal Consumed 50% 04/14/25 09:39 Percent Meal Consumed 100% 04/13/25 13:26 Percent Meal Consumed 50% 04/13/25 09:47 Percent Meal Consumed 100% 04/12/25 18:00 Labs: RBC 4.91 X10^6/uL (4.5-5.9) 04/11/25 06:58 Hgb 14.5 g/dL (13.5-17.5) 04/11/25 06:58 Hct 43.2 % (41-53) 04/11/25 06:58 Creatinine 0.92 mg/dL (0.66-1.25) 04/11/25 06:58 NT-Pro-B Natriuret Pep 162 pg/mL (<125) H 04/08/25 05:55 Nutrition Diagnosis: none at this time Electronically Signed by: Susana Rasheed 04/14/25 13:23 Clinical Dietitian [address] [address]
--- NOTE | 2025-04-14 13:28 | PT.IPTN ---
Current Diagnoses Cerebral infarction, unspecified (04/08/25) Physical Therapy Treatment Note M2 PT-IP Current Condition Start: 04/08/25 10:17 Freq: NEEDED Status: Active Protocol: Document 04/08/25 08:56 MB (Rec: 04/08/25 10:36 MB Desktop) Physical Therapy Current Condition Current Condition Evaluation Date 04/08/25 Treatment Diagnosis R nolan radiata subacute ischemia, LLE weakness M3 PT-IP Subjective Start: 04/08/25 10:17 Freq: NEEDED Status: Active Protocol: Document 04/14/25 11:31 MB (Rec: 04/14/25 13:28 MB Desktop) Subjective Physical Therapy Visit Type Type Treatment Note Visit Start Time 11:31 Visit Stop Time 12:04 Number of GLASS INSERTER Visits 0 Physical Therapy Visit Comments Patient Comments Pt is agreeable to therapy. OT and PT work together to assist with skilled verbal and tactile cues for sitting balance and bed mobility in pt with dense left sided hemiplegia. Therapy Pain Assessment Pain When Pain Assessed At Rest Pain Present Pain Present Pain Reported Location neck Scale Used Not rated and improves with cervical exercises as yesterday M4 PT-IP Mobility and Gait Start: 04/08/25 10:17 Freq: NEEDED Status: Active Protocol: Document 04/14/25 11:31 MB (Rec: 04/14/25 13:28 MB Desktop) PT-Bed Mobility Assessment Rolling Type of Rolling Roll to Left Supine to Sit Supine to Sit Maximum Assistance,2 Person Assistance,Head of Bed Elevated,Bedrails Sit to Supine Sit to Supine Moderate Assistance,2 Person Assistance Scooting Scooting to Edge of Contact Guard Assistance Bed Scooting Up and Down Maximum Assistance in Bed PT-Transfer Assessment Comments Mobility Comments BP and HR similar to last date. Pt requires cues and assistance for rolling to the left and use of HOB rail with right hand and PT assists with legs, keeping them together and then pt's hooks right leg on side of bed to help scoot out and he pushes with right hand on HOB rail. Once sitting, therapist places pt's feet on step for WB through LLE and pt uses small hand rail at bottom of bed with right hand to help scoot out and light guarding from second therapist behind. Pt works on several EOB WB, exercise and therapy tasks to work on core balance and stamina, posture, range and cross body tasks: reaching down to left lower leg with right hand and then reach up to the right with cues, down on left elbow and up several time, cervical rotation, flexion and extension and B SB x10 reps: one therapist blocking leg and one therapist guarding behind. Pt with better tolerance today and maintaining upright sitting without falling back without back support. PT-Balance Assessment Sitting Balance and Reactions Static Sitting Fair Balance Ability Dynamic Sitting Fair Balance Ability M5 PT-IP Objective Assessments Start: 04/08/25 10:17 Freq: NEEDED Status: Active Protocol: Document 04/08/25 08:56 MB (Rec: 04/08/25 10:36 MB Desktop) Orientation Orientation/Cognition Level of Alertness Alert Orientation Name,Age,Birthday,Place,Situation Language Function No Deficits Noted Ability Safety Awareness Decreased Safety Awareness Memory Description No Deficits Noted Gross Range of Motion Upper Extremity ROM Impairments Defer to OT, pt does seem sluggish with motor awareness of LUE and use with moving hand on and off walker and for bed mobility Lower Extremity ROM Assessment Left Impaired Impairments See comments above, testing is challenging to rate today given tone presentation and no active movement with tone Strength Lower Extremity Strength Assessment Left Impaired Comments Strength Comments LLE ankle and knee without AROM and resistance to attempted PROM left knee flexion today with buckle with standing WB Coordination Assessment Gross Coordination Gross Coordination Impaired Sensation Assessment Sensation Gross Sensation WNL Comments Sensation Comments Pt does have delayed processing with sensory testing Muscle Tone Muscle Tone WNL No Comments Muscle Tone Comments PF tone left ankle and extensor tone left knee today, strong clonus to passive DF left ankle today M6 PT-IP Treatment Start: 04/08/25 10:17 Freq: NEEDED Status: Active Protocol: Document 04/14/25 11:31 MB (Rec: 04/14/25 13:28 MB Desktop) Physical Therapy Treatment Other Treatments Other Treatment See exercises above, also perform 5 GS right glute in Performed sitting and no firing of left today. 10 bridges in supine with PT holding left knee bent and foot into mattress and left arm guarded on pt's abdomen, bed in Trendelenburg for scooting and pt using right leg in bridge and right hand on head board. Left in cardiac chair positioning M7 PT-IP Assessment and Plan Start: 04/08/25 10:17 Freq: NEEDED Status: Active Protocol: Document 04/14/25 11:31 MB (Rec: 04/14/25 13:28 MB Desktop) PT Summary Assessment and Plan Potential Rehabilitation Excellent Potential Status of Condition Evolving at Evaluation Summary Impairments Pain,ROM,Strength,Balance,Coordination,Sensation,Tone, Cognition,Bed Mobility,Transfers,Gait,Activity Tolerance Progress Towards Progressing Toward Goals Goals Assessment Summary Dotties BP and HR are similar to last date. He has longer tolerance and better performance with dynamic sitting tasks today with feet supported on step and no back support sitting EOB today. He does a good job with bridging with left leg supported. Pt is an excellent candidate for acute rehab. Goals Bed Mobility Goal Contact Guard Assistance Transfer Goal Contact Guard Assistance,Front Wheeled Walker Gait Goal Contact Guard Assistance,Front Wheel Walker Gait Distance 50 Other Goals Pt will maintain static and dynamic sitting balance for at least 10' for ADLs and exercises with I. Pt will maintain static and dynamic standing balance with LRAD and mod I. Days to Meet Goals 10 Frequency of Treatment Frequency Of Once a Day Treatment Other frequency 1-2x/day Treatment Plan Physical Therapy Bed Mobility Training,Transfer Training,Gait Training, Treatment Plan Therapeutic Exercise,Balance Retraining,Discharge Planning,Hot or Cold Pack,Neuromuscular Re-ed, Coordination Retraining,Manual Therapy Other Patsy II STS with +2 assist and support at left leg to Recommendations and improve upright and WB Next Treatment Focus Recommendations To Nursing Amount of Assist Mechanical Lift Needed Discharge Recommendations PT Discharge Acute Rehab Recommendations Transportation Needs Wheelchair/Cabulance,Stretcher/Ambulance at Discharge - PT assist x2
--- NOTE | 2025-04-14 15:07 | CM.DPNOTE ---
DCP note PERSONAL HEALTH COACH reviewed EMR per provider/RN/chart, BP a bit high but controlled on PO meds. could dc if ins auth. Spoke with Arslan from [facility], . no auth yet. . spoke with tevin Soliz manager of case management. ([phone] ext [phone]) and ins sharlene manager of case management Beronica ([phone]) multiple times throughout the day. sent updated clinicals. per Beronica, authorized inpt rehab for pt tomorrow to [facility]. PERSONAL HEALTH COACH updated pt in room. appreciative of efforts. in agreement with plan. can pay privately for [employer] van transport. PERSONAL HEALTH COACH scheduled transport with [facility] transportation tomorrow for 1pm. cost $140. PERSONAL HEALTH COACH updated RN/provider. per Arslan, can accept tomorrow. RN report number [phone]. will need dc summary and MAR. P: dc tomorrow via [facility] at 1pm to [facility]. CM team will continue to follow closely for DCP coordination BLANCA Salmeron
[2025-04-14] MEDS: ACETAMINOPHEN 325 MG TABLET 650 MG PO (15:22)
[2025-04-14] MEDS: HYDROCODONE/ACET 5/325 TABLET 1 TAB PO (17:01)
--- NOTE | 2025-04-14 18:19 | PC.NURSE ---
Day Shift Note Patient is alert and oriented x4. 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 Unable to move LLE. Using mechanical lift for all transfers per PT/OT recommendations. Pt able to assist with repositioning in bed. Denies any loss of sensation or sensation changes in affected limbs. Slightly slurred speech from baseline and mild left facial droop present. No issues swallowing, taking pills without issue. BP in the 150-160s systolic. Receiving tylenol prn for back and head pain, reports improvement. Up in chair during the morning. Call light within reach, using appropriately to make needs known.
[2025-04-14 20:08] LABS: Dopamine, Ur 24hr 457 ug/24 hr (0-510); Epinephrine, U 24hr 41 ug/24 hr (0-20); Norepinephrine Ur 24hr 211 ug/24 hr (0-135)
[2025-04-14] MEDS: ATORVASTATIN 20 MG TABLET 40 MG PO (21:05)
[2025-04-14] MEDS: ZOLPIDEM 5 MG TABLET PO (21:06)
[2025-04-15] VITALS (10 sets, daily range): BP systolic 171–237; BP diastolic 74–131; PULSE 97–101; RESP 16–17; TEMP 36.4; O2SAT 93–100
[2025-04-15] MEDS: hydrALAZINE 20 MG/ML VIAL 10 MG IV (04:00)
--- NOTE | 2025-04-15 06:11 | PC.NURSE ---
gasoline tester note pt resting quietly overnight, A&Ox4, occasionally delayed/slightly slurred speech, slight L side facial droop, no movement R arm/leg, refusing turns, states he is comfortable when prompted to turn, L arm and leg elevated on pillows, call burris within reach, meds as ordered, prn hydralazine given for BP 185/85, incont of urine at times, linens changed as needed
--- NOTE | 2025-04-15 08:56 | P.DS_ITS ---
History of Present Illness History of Present Illness Date Patient Seen: 04/15/25 Time Patient Seen: 08:56 Chief complaint: thinks he is having stroke symptoms Narrative: The pt is a 29 yo who presents to the ER last night with c/o left leg weakness & numbness that has been present for the past 2 weeks. He noticed it after playing football with some friends and has not improved, over the past week, he believes it has gotten worse. He is no longer able to put weight on the leg. He told the ER staff that he felt he was slurring his words but I was not able to notice this. He is normally on hypertensive medications but has been very non-compliant with taking them, in fact it has been several weeks since he took them and has not rechecked his BP at home. There is no family hx of CVA or early onset NE. He does smoke tobacco + marijuana but no other recreational drug use. The has been no change in vision, no upper ext weakness, no confusion, Findings in the emergency room significant for subacute stroke in the right nolan radiata on CT CT angiography is negative for significant cerebrovascular stenosis Discharge Providers Provider Date of admission: 04/08/25 03:21 Discharge Date: 04/15/25 Primary care physician: Edgar Mitchell MD Consults: 04/08/25 03:25 Consult to Occupational Therapy Evaluate & Treat Comment: Physician Instructions: Evaluate and treat Consult to Physical Therapy Evaluate & Treat Comment: Physician Instructions: Evaluate and Treat 04/08/25 12:06 Consult to Speech Therapy Evaluate & Treat Comment: Physician Instructions: Evaluate and treat Discharge provider: Farhad Olvera MD Summary Hospital Course Hospital Course: 1. Hypertensive urgency, present on admission and slowly improving. Blood pressure near goal range on oral medication, now off nicardipine. 2. Right Frontal Lobe (FILI evolving on CT) stroke with left arm and leg weakness, left arm and leg weakness continues to vary from day-to-day. 3. Morbid obesity with BMI of 40.8 His right frontal lobe and other FILI perfused stroke symptoms have stabilized with a profound left-sided weakness. His blood pressure has required 7 medications at maximal doses for control. His energy level and mental reaction to the stroke at this young age is likely to require SSRI therapy to optimize PT/OT participation. He will be discharging to inpatient rehab today. Continue current blood pressure medications, triamterene, carvedilol, hydrochlorothiazide, amlodipine, lisinopril, hydralazine, spironolactone. Consider SSRI therapy. PT and OT following. Continue antiplatelet therapy. Aspirin, clopidogrel and atorvastatin. Status at Discharge Cognitive/behavioral status at discharge: oriented Functional status at discharge: wheelchair bound Overall status at discharge: patient is not back to baseline Exam Vital Signs (past 8 hours): - 04/15/25 04:00 04/15/25 04:12 04/15/25 04:30 Pulse Rate 97 H 100 H Respiratory Rate 16 Blood Pressure 185/85 H 185/86 H 171/74 H Pulse Oximetry 96 Oxygen Delivery Method Room Air Oxygen Flow Rate 0 Narrative Exam Narrative: Exam: Heart is regular rate and rhythm without murmur Lungs are clear to auscultation bilaterally Extremities have no ankle edema Neurologic exam: The right side remains 5/5. Cranial nerves 2-12 test intact. The left nursing informatics analyst strength is now 1/5. The left lower extremity motor function is now 0/5. Objective Labs 04/11/25 06:58 04/11/25 06:58 Labs: Laboratory Results - last 24 hr 04/10/25 07:00 Ur Epinephrine 24 Hr 34 24H U Epinephrine nmol/Day 41 H U Norepinephrine 24 Hr 176 24H U Norepinephrine nmol/Day 211 H Ur Dopamine 24 Hr 381 24H U Dopamine nmol/Day 457 PFSH Medical History Tinnitus Plantar fasciitis, bilateral Hearing loss Foot pain Hypertension Social History household members: family, children and none Smoking Status: Current every day smoker alcohol intake: current Discharge Plan Discharge Plan Patient Disposition: SNF Other facility: [facility] Under care of provider: Facility attending Discharge orders & Medications Prescriptions: New acetaminophen 325 mg Tablet 650 mg PO Q6H PRN (Reason: Fever/Mild Pain (1-3)) Qty: 30 0RF atorvastatin 20 mg Tablet 40 mg PO BEDTIME Qty: 60 0RF carvedilol 12.5 mg Tablet 25 mg PO BID Qty: 60 0RF ipratropium-albuterol 0.5 mg-3 mg(2.5 mg base)/3 mL Solution For Nebulization 30 ml INH RTQ4HR PRN (Reason: Shortness Of Breath) Qty: 30 0RF hydrocodone-acetaminophen 5-325 mg Tablet 1 tab PO Q4H PRN (Reason: Pain, Moderate (4-6)) Qty: 10 0RF lisinopril 20 mg Tablet 40 mg PO DAILY Qty: 30 0RF hydralazine 25 mg Tablet 50 mg PO TID Qty: 90 0RF clopidogrel 75 mg Tablet 75 mg PO DAILY Qty: 30 0RF aspirin 81 mg Tablet,Delayed Release (Dr/Ec) 81 mg PO DAILY Qty: 30 0RF triamterene-hydrochlorothiazid 37.5-25 mg Tablet 1 tab PO DAILY Qty: 30 0RF zolpidem 5 mg Tablet 5 mg PO BEDTIME PRN (Reason: Sleep) Qty: 3 0RF fluticasone propionate 50 mcg/actuation [place],Suspension 1 spray intranasal DAILY PRN (Reason: nasal congestion) Qty: 1 0RF enoxaparin [Lovenox] 40 mg/0.4 mL Syringe 40 mg SUBCUT BID Qty: 30 0RF Continued amlodipine 10 mg tablet 10 mg PO DAILY Qty: 90 3RF spironolactone 25 mg tablet 25 mg PO DAILY Qty: 90 3RF Discontinued lisinopril-hydrochlorothiazide 20-12.5 mg tablet 1 tab PO DAILY Qty: 90 3RF Follow up/Referrals: Edgar Mitchell MD [Primary Care Provider, Internal Medicine] Diet/Activity/Treatments Diet: Low-cholesterol Liquid consistency: Normal/Thin Food texture: Regular Visit Report/Discharge Packet Stand Alone Forms: Patient Portal/API Discharge Data Primary Care Provider: Edgar Mitchell V Quality VTE Deep Vein Thrombosis/Pulmonary Embolism Present on Admission: No
[2025-04-15] MEDS: SPIRONOLACTONE 25 MG TABLET PO (09:18)
[2025-04-15] MEDS: TRIAMTERENE/HCTZ 37.5/25 CAPSULE 1 CAP PO (09:18)
[2025-04-15] MEDS: ASPIRIN EC 81 MG TABLET PO (09:18)
[2025-04-15] MEDS: CLOPIDOGREL 75 MG TABLET PO (09:18)
[2025-04-15] MEDS: AMLODIPINE 5 MG TABLET 10 MG PO (09:18)
[2025-04-15] MEDS: ENOXAPARIN 40 MG/0.4 ML SYRINGE SUBCUT (09:19)
[2025-04-15] MEDS: SODIUM CHLORIDE 0.9% FLUSH 10 ML IV (09:19)
--- NOTE | 2025-04-15 11:31 | CM.DPNOTE ---
DCP note EQUAL OPPORTUNITY COUNSELOR reviewed EMR per provider, cleared to dc to [facility] today. EQUAL OPPORTUNITY COUNSELOR updated RN/gave report number. EQUAL OPPORTUNITY COUNSELOR met with pt in room. eager to dc today. confirmed paid for [facility] transport. denies other questions or concerns at this time. EQUAL OPPORTUNITY COUNSELOR emailed Arslan fl information. appreciated updates. P: dc today to [facility] via [facility] at 1pm. CM team will continue to follow as needed for DCP coordination BLANCA Salmeron
--- NOTE | 2025-04-15 11:39 | OT.IPNOTE ---
Check on pt and soundly sleeping. Pt to be discharged to acute rehab this PM.
--- NOTE | 2025-04-15 13:54 | PC.NURSE ---
Discharge Note Patient discharged to [facility] via cabulance at 1320. Mechanical lift used for transfer. All belongings with pt including clothing, two portable chevy devices, cell phone, tour actor, CPAP, and work release note from Dr. Gilliam. Information packet with prescriptions given to [facility] transport. Report called to Terry MARIE at rehab center. All questions answered.
[2025-04-15 17:36] LABS: Normetanephrine Total 925 ug/24 hr (156-729); Urine, Metanephrine 271 ug/L (Undefined); Urine, Normetanephrine 771 ug/L (Undefined)
[2025-04-17 02:36] LABS: Aldosterone/Renin Activity Rat 2.0 (.); Plama Renin, LC/MS/MS 1.8 ng/mL/hr (.)
== END 2025-04-15 11:30 | DRG 65 ==
LOC: ED 03:08 → AC 03:22 → ICU 10:52
PROVIDERS: Hospitalist; Internal Medicine; Admitting Provider Internal Medicine; Emergency Provider Family Medicine; PCP Internal Medicine; Referring Provider Family Medicine; Visit Provider Internal Medicine
DX: I63.9 Cerebral infarction, unspecified (principal); G81.94 Hemiplegia, unspecified affecting left nondominant side; I43 Cardiomyopathy in diseases classified elsewhere; Z68.41 Body mass index [BMI] 40.0-44.9, adult; I16.0 Hypertensive urgency; F17.200 Nicotine dependence, unspecified, uncomplicated; R20.0 Anesthesia of skin; R29.810 Facial weakness; I11.9 Hypertensive heart disease without heart failure; R29.703 NIHSS score 3; E66.01 Morbid (severe) obesity due to excess calories; R29.707 NIHSS score 7; R47.89 Other speech disturbances; F32.A Depression, unspecified; Z91.148 Patient's other noncompliance with medication regimen for other reason
CPT/HCPCS: 36415; 70450; 70496; 70498; 71045; 71275; 74174; 80048; 80053; 80061; 80305; 81003; 82088; 82384; 82530; 82550; 82962; 83497; 83835; 83880; 84244; 84484; 84585; 85025; 85610; 85730; 87797; 92523; 93005; 96365; 96366; 96372; 96375; 97110; 97112; 97162; 97166; 97530; 97535; 99285; C8929; J0360; J1650; J1938; Q9957; Q9967